=== PATIENT | male | born 1980 | race African-American/Black ===

== ENCOUNTER → 2016-11-06 | Outpatient (CLI) | payer OTHER ==
[2016-09-04 08:12] VITALS: BP 149/80
--- NOTE | 2016-11-06 13:52 | CARD ---
APPROVED REPORT PROCEDURE: Successful implantation of [employer]ik Biomonitor loop recorder INDICATIONS: Recurrent Syncope of uncertain etiology PROCEDURE DETAILS: An informed consent was obtained from patient. Patient was brought to the procedure suite and her le ft chest and shoulder were prepped and draped in the usual fashion. 20 mL of 2% lidocaine was infilt rated into the skin and subcutaneous tissues for local anesthesia. An incision was made in the left third intercostal space 1 inch from midsternal line and using the introducer provided with the kit a track was created in subcutaneous tissue. Subsequently, with the help of the deployer provided with the kit, a Bi[employer]ik Biomonitor loop recorder serial number [id number] was placed in the subcutaneous t issue. The incision was closed in one layer. Hemostasis was secured. Patient tolerated the procedu re well. There were no immediate complications. At the end of procedure, the device showed sensing amplitude of 1.71 mV. CONCLUSION: Successful implantation of Bi[employer]ik Biomonitor loop recorder for syncope of uncertain etiology to ru le out any significant arrhythmias.
== END | disposition home or self-care (01) ==
LOC: LINQ 13:38
PROVIDERS: ATTEND Internal Medicine Cardiovascular Disease
DX: R55 Syncope and collapse (principal)
CPT/HCPCS: 33282; C1764

== ENCOUNTER 2019-02-24 16:09 | Inpatient (IN) | payer OTHER, SELFPAY ==
[~2019-02-24] VITALS: Ht 188 cm; Wt 177.9 kg
[2019-02-24] VITALS (7 sets, daily range): BP systolic 105–147; BP diastolic 71–81
[~2019-02-24 16:09] MED LIST: ASPI325T11 PO; ATOR40TA59 PO; CLOP75TA PO; GLYB5TAB3 PO; INSU100I13 SQ; LISI-338 PO; METO25TA4 PO; Pantoprazole PO
[2019-02-24] MEDS ORDERED: ASPIRIN 325 MG TABLET PO ONE (16:30)
[2019-02-24] MEDS ORDERED: MORPHINE SULFATE 4 MG/ML VIAL. IV/SQ PRN (16:30)
[2019-02-24] MEDS ORDERED: NITROGLYCERIN SUBLINGUAL 0.4 MG BOTTLE OF 25. SL PRN ×2 (16:30→19:30)
--- NOTE | 2019-02-24 16:32 | PHYS DOC ---
Past Medical History Past Medical History: Diabetes-Type II, High Cholesterol, Hypertension, HI Adult General Chief Complaint Chief Complaint: CHEST PAIN HPI HPI Patient is a 39 year old white male with a history of diabetes type 2, hypertension, high cholesterol, who presents to the ED today complaining over 10 out of 10 crushing left-sided chest pain that has been going on for 3 days. Patient states the pain is worse on deep breaths as well as palpation of the left chest area. Patient states there is nothing specifically relieving his pain. He states he was seen in the ED in October 2018 and had an HI. He states they were unable to put stents in. PCP Dr. Jose Alejandro Holcomb's Review of Systems Review of Systems Constitutional: Denies fever or chills [] Eyes: Denies change in visual acuity, redness, or eye pain [] HENT: Denies nasal congestion or sore throat [] Respiratory: Denies cough or shortness of breath [] Cardiovascular: Reports left-sided chest pain GI: Denies abdominal pain, nausea, vomiting, bloody stools or diarrhea [] : Denies dysuria or hematuria [] Musculoskeletal: Denies back pain or joint pain [] Integument: Denies rash or skin lesions [] Neurologic: Denies headache, focal weakness or sensory changes [] All other systems were reviewed and found to be within normal limits, except as documented in this note. Current Medications Current Medications Current Medications Medications (Trade) Dose Ordered Sig/[facility] Start Time Stop Time Status Last Admin Dose Admin Aspirin (Stanislaw Aspirin) 325 mg 1X ONCE 02/24/19 16:30 02/24/19 16:31 DC 02/24/19 16:48 325 MG Enoxaparin Sodium (Lovenox 100mg Syringe) 100 mg 1X ONCE 02/24/19 19:30 02/24/19 19:31 Enoxaparin Sodium (Lovenox 80mg Syringe) 80 mg 1X ONCE 02/24/19 19:30 02/24/19 19:31 Enoxaparin Sodium (Lovenox Per Pharmacy Treatment Dosing) 1 each STAT STAT 02/24/19 18:50 02/24/19 18:54 DC Info (CONTRAST GIVEN -- Rx MONITORING) 1 each PRN DAILY PRN 02/24/19 18:30 02/26/19 18:29 Insulin Human Regular (HumuLIN R VIAL) 10 unit 1X ONCE 02/24/19 18:00 02/24/19 18:03 DC 02/24/19 18:53 10 UNIT Iohexol (Omnipaque 350 Mg/ml) 90 ml 1X ONCE 02/24/19 18:30 02/24/19 18:31 DC 02/24/19 18:30 90 ML Morphine Sulfate (Morphine Sulfate) 4 mg PRN Q15MIN PRN 02/24/19 16:30 02/25/19 16:29 Nitroglycerin (Nitrostat) 0.4 mg PRN Q5MIN PRN 02/24/19 16:30 02/25/19 16:29 02/24/19 16:49 0.4 MG Ondansetron HCl (Zofran) 8 mg 1X ONCE 02/24/19 18:45 02/24/19 18:46 DC 02/24/19 18:47 8 MG Sodium Bicarbonate (Sodium Bicarb Adult 8.4% Syr) 50 meq 1X ONCE 02/24/19 18:00 02/24/19 18:03 DC 02/24/19 18:50 50 MEQ Sodium Chloride 1,000 ml @ 1,000 mls/hr 1X ONCE 02/24/19 18:00 02/24/19 18:59 DC 02/24/19 18:53 1,000 MLS/HR Allergies Allergies Allergies Coded Allergies Type Severity Reaction Last Updated Verified No Known Drug Allergies 09/04/16 No Physical Exam Physical Exam Constitutional: Obese patient. Well developed, well nourished, no acute distress, non-toxic appearance. [] HENT: Normocephalic, atraumatic, bilateral external ears normal, oropharynx moist, no oral exudates, nose normal. [] Eyes: PERRLA, EOMI, conjunctiva normal, no discharge. [] Neck: Normal range of motion, no tenderness, supple, no stridor. [] Cardiovascular: Tachycardic, no murmur [] Lungs & Thorax: Bilateral breath sounds clear to auscultation [] Abdomen: Bowel sounds normal, soft, no tenderness, no masses, no pulsatile masses. [] Skin: Warm, dry, no erythema, no rash. [] Back: No tenderness, no CVA tenderness. [] Extremities: No tenderness, no cyanosis, no clubbing, ROM intact, no edema. [] Neurologic: Alert and oriented X 3, normal motor function, normal sensory function, no focal deficits noted. [] Psychologic: Affect normal, judgement normal, mood normal. [] Current Patient Data Vital Signs Vital Signs Date Time Temp Pulse Resp B/P (MAP) Pulse Ox O2 Delivery O2 Flow Rate FiO2 02/24/19 18:44 120 28 131/104 (113) 93 Nasal Cannula 2.0 02/24/19 16:28 98.3 98.3 Lab Values Laboratory Tests Test 02/24/19 16:20 02/24/19 17:20 White Blood Count 9.4 x10^3/uL (4.0-11.0) Red Blood Count 5.29 x10^6/uL (4.30-5.70) Hemoglobin 15.8 g/dL (13.0-17.5) Hematocrit 47.2 % (39.0-53.0) Mean Corpuscular Volume 89 fL (79-100) Mean Corpuscular Hemoglobin 30 pg (25-35) Mean Corpuscular Hemoglobin Concent 33 g/dL (31-37) Red Cell Distribution Width 13.7 % (11.5-14.5) Platelet Count 173 x10^3/uL (140-400) Neutrophils (%) (Auto) 71 % (31-73) Lymphocytes (%) (Auto) 21 % (24-48) L Monocytes (%) (Auto) 7 % (0-9) Eosinophils (%) (Auto) 1 % (0-3) Basophils (%) (Auto) 1 % (0-3) Neutrophils # (Auto) 6.7 x10^3uL (1.8-7.7) Lymphocytes # (Auto) 1.9 x10^3/uL (1.0-4.8) Monocytes # (Auto) 0.7 x10^3/uL (0.0-1.1) Eosinophils # (Auto) 0.1 x10^3/uL (0.0-0.7) Basophils # (Auto) 0.0 x10^3/uL (0.0-0.2) Prothrombin Time 14.5 SEC (11.7-14.0) H Prothrombin Time INR 1.2 (0.8-1.1) H D-Dimer (Emily) 6.09 ug/mlFEU (0.00-0.50) H Sodium Level 130 mmol/L (136-145) L Potassium Level 4.3 mmol/L (3.5-5.1) Chloride Level 93 mmol/L (98-107) L Carbon Dioxide Level 20 mmol/L (21-32) L Anion Gap 17 (6-14) H Blood Urea Nitrogen 20 mg/dL (8-26) Creatinine 1.8 mg/dL (0.7-1.3) H Estimated GFR (Cockcroft-Gault) 51.4 BUN/Creatinine Ratio 11 (6-20) Glucose Level 517 mg/dL (70-99) *H Calcium Level 9.4 mg/dL (8.5-10.1) Magnesium Level 1.8 mg/dL (1.8-2.4) Total Bilirubin 0.7 mg/dL (0.2-1.0) Aspartate Amino Transferase (AST) 15 U/L (15-37) Alanine Aminotransferase (ALT) 26 U/L (16-63) Alkaline Phosphatase 106 U/L (46-116) Creatine Kinase 152 U/L (39-308) Creatine Kinase MB (Mass) 1.1 ng/mL (0.0-3.6) Creatine Kinase MB Relative Index 0.7 % (0-4) Troponin I Quantitative 0.196 ng/mL (0.000-0.055) CF-Vdh-R-Type Natriuretic Peptide 592 pg/mL (0-124) H Total Protein 8.4 g/dL (6.4-8.2) H Albumin 3.3 g/dL (3.4-5.0) L Albumin/Globulin Ratio 0.6 (1.0-1.7) L Lipase 166 U/L (73-393) Thyroid Stimulating Hormone (TSH) 1.571 uIU/mL (0.358-3.74) Laboratory Tests 02/24/19 16:20 Laboratory Tests 02/24/19 17:20 EKG EKG [address] Malcolm sinus tachycardia HR 124 no STEMI[] Radiology/Procedures Radiology/Procedures []PROCEDURE: PORTABLE CHEST 1V PORTABLE CHEST 1V History: ER PATIENT. ATRAUMATIC LEFT SIDE CHEST PAIN, Hx HTN, DIABETES, LOOP RECORDER. PRIOR XRAY.. Comparison with the study 10/12/2018. Cardiac device is seen overlying the left chest. No evidence of a pneumothorax. No evidence of pleural effusion. No airspace consolidation. The cardiomediastinal silhouette appears stable since the prior study. The regional skeleton is grossly intact. IMPRESSION: No evidence of consolidating infiltrate. Electronically signed by: Dani Zamudio MD (02/24/2019 5:25 PM) [id number] DICTATED and SIGNED BY: DANI ZAMUDIO MD DATE: 02/24/19 4956 Course & Med Decision Making Course & Med Decision Making Pertinent Labs and Imaging studies reviewed. (See chart for details) This is a 39-year-old male patient presenting to the ED today with left-sided chest pain that began 3 days ago had HI in October 2018. Vitals on arrival to the ED temperature 98.3 heart rate 125 respiration, 26 on room air pressure 149/83 O2 sats 90% on room air. Started on IV fluids. Patient was started on the chest pain protocol including aspirin on arrival to the ED. CBC with a normal WBC, CMP with sodium of 130, glucose 517, anion gap 17, creatinine 1.8, BUN 20, troponin 0.[address] Malcolm he recommended more IV fluids, Insulin 10 units and Bicarb. 18:[address] Mcdonough who will f/u with patient D-dimer 6.09 CTA chest obtained. Radiologist called and informed the patient has suddle PEs. Spoke with she recommended Lovenox Spoke with Dr. Sutton who accepted patient for admission- he recommended if patient is not hypoxic we should not give lovenox. Patient has 02 saturations on RA around 88%. He will be given Heparin per PE protocol. Admitted in ICU. Dragon Disclaimer Dragon Disclaimer This electronic medical record was generated, in whole or in part, using a voice recognition dictation system. Departure Departure Impression: Primary Impression: NSTEMI (non-ST elevated myocardial infarction) Additional Impressions: DKA (diabetic ketoacidoses) Chest pain Acute renal failure Pulmonary embolism Disposition: ADMITTED INPATIENT Condition: STABLE Referrals: JOSE ALEJANDRO LENTZ MD (PCP) Problem Qualifiers Additional Impressions: DKA (diabetic ketoacidoses) Diabetes mellitus type: type 2 Diabetes mellitus complication detail: without coma Qualified Codes: E11.10 - Type 2 diabetes mellitus with ketoacidosis without coma Chest pain Chest pain type: unspecified Qualified Codes: R07.9 - Chest pain, unspecified Acute renal failure Acute renal failure type: unspecified Qualified Codes: N17.9 - Acute kidney failure, unspecified Pulmonary embolism Pulmonary embolism type: saddle Chronicity: acute Acute cor pulmonale presence: without acute cor pulmonale Qualified Codes: I26.92 - Saddle embolus of pulmonary artery without acute cor pulmonale SARBJIT KEMP APRN Feb 24, 2019 16:32
[2019-02-24] MEDS ORDERED: IV NORMAL SALINE 1000ML BAG 1,000 ML IV ONE ×3 (16:45→19:30)
[2019-02-24 16:48] LABS: BASO % 1 % (0-3); EOS # 0.1 x10^3/uL (0.0-0.7); EOS % 1 % (0-3); HEMATOCRIT 47.2 % (39.0-53.0); HEMOGLOBIN 15.8 g/dL (13.0-17.5); LYMPH # 1.9 x10^3/uL (1.0-4.8); LYMPH % 21 % (24-48); MEAN CORPUSCULAR HEMOGLOBIN 30 pg (25-35); MEAN CORPUSCULAR HGB CONC 33 g/dL (31-37); MEAN CORPUSCULAR VOLUME 89 fL (79-100); MONO # 0.7 x10^3/uL (0.0-1.1); MONO % 7 % (0-9); NEUT # 6.7 x10^3uL (1.8-7.7); NEUT % 71 % (31-73); PLATELET COUNT 173 x10^3/uL (140-400); RED BLOOD COUNT 5.29 x10^6/uL (4.30-5.70); RED CELL DISTRIBUTION WIDTH 13.7 % (11.5-14.5); WHITE BLOOD COUNT 9.4 x10^3/uL (4.0-11.0)
--- NOTE | 2019-02-24 17:20 | EKG ---
[facility] [address] [place] [address] Test Date: 2019-02-24 Test Time: 16:19:54 Pat Name: EL THOMPSON Department: Room: Gender: M Organizational Effectiveness Consultant: : 1980 Requested By: SARBJIT KEMP Order Number: [id number] Reading MD: Measurements Intervals [place] Rate: 124 P: -90 NH: 80 QRS: 10 QRSD: 84 T: -42 QT: 326 QTc: 472 Interpretive Statements SINUS TACHYCARDIA R-S TRANSITION ZONE IN V LEADS DISPLACED TO THE RIGHT INCOMPLETE RIGHT BUNDLE BRANCH BLOCK QRS(T) CONTOUR ABNORMALITY CONSISTENT WITH INFERIOR INFARCT AGE UNDETERMINED ABNORMAL ECG No previous ECG available for comparison
--- NOTE | 2019-02-24 17:29 | RAD ---
PORTABLE CHEST 1V History: ER PATIENT. ATRAUMATIC LEFT SIDE CHEST PAIN, Hx HTN, DIABETES, LOOP RECORDER. PRIOR XRAY.. Comparison with the study 10/12/2018. Cardiac device is seen overlying the left chest. No evidence of a pneumothorax. No evidence of pleural effusion. No airspace consolidation. The cardiomediastinal silhouette appears stable since the prior study. The regional skeleton is grossly intact. IMPRESSION: No evidence of consolidating infiltrate. Electronically signed by: Dani Zamudio MD (02/24/2019 5:25 PM) [id number]
[2019-02-24 17:39] LABS: PROTHROMBIN TIME PATIENT 14.5 SEC (11.7-14.0)
[2019-02-24 17:52] LABS: ALBUMIN 3.3 g/dL (3.4-5.0); ALBUMIN/GLOBULIN RATIO 0.6 (1.0-1.7); CALCIUM 9.4 mg/dL (8.5-10.1); CREATININE 1.8 mg/dL (0.7-1.3); GFR 51.4; MAGNESIUM 1.8 mg/dL (1.8-2.4); POTASSIUM 4.3 mmol/L (3.5-5.1); TOTAL BILIRUBIN 0.7 mg/dL (0.2-1.0); TOTAL PROTEIN 8.4 g/dL (6.4-8.2)
[2019-02-24 17:57] LABS: D-DIMER 6.09 ug/mlFEU (0.00-0.50)
[2019-02-24] MEDS ORDERED: INSULIN REGULAR 100 UNIT/ML 3ML VIAL. IV ONE (18:00)
[2019-02-24] MEDS ORDERED: SODIUM BICARB ADULT 8.4% 50 MEQ/50 ML DISP.SYRIN. IV ONE (18:00)
[2019-02-24] MEDS ORDERED: IOHEXOL 350 MG/ML 100 ML VIAL. IV ONE (18:30)
[2019-02-24] MEDS ORDERED: CONTRAST GIVEN. MC PRN (18:30)
[2019-02-24] MEDS ORDERED: ONDANSETRON PF 4 MG/2 ML VIAL. IM ONE (18:45)
--- NOTE | 2019-02-24 18:53 | RAD ---
CTA chest with contrast dated 02/24/2019. No comparison available. CLINICAL INDICATION: Chest pain. Elevated d-dimer. TECHNIQUE: Contiguous axial imaging the chest performed following the intravenous demonstration of 90 cc Isovue-370. Study was performed as dedicated PE protocol with thin cut coronal MIPS 3-D reconstruction. One or more of the following individualized dose reduction techniques were utilized for this examination: 1. Automated exposure control 2. Adjustment of the mA and/or kV according to patient size 3. Use of iterative reconstruction technique FINDINGS: Contrast bolus is adequate. There is extensive filling defect throughout the lobar pulmonary artery branches with occlusion and of the basilar segmental branches on the left and occlusion of the left upper lobe and lingular segmental branches. There few branches of the right lower lobe that are occluded with high-grade narrowing of the right middle lobe and right upper lobe branches. There is a saddle embolus crossing the midline. Near complete occlusion of the distal right main pulmonary artery. Heart size within normal limits. No pericardial effusion. There is dilation of the main right pulmonary artery measuring 3.6 cm. Is also some enlargement of the right ventricle with some displacement of the septum toward the left. No mediastinal, hilar or axillary lymphadenopathy. Thyroid gland unremarkable. Central airways are patent. Lungs are clear without focal consolidation. Vascular interstitium within normal limits. No pleural effusion or pneumothorax. Limited images of the upper abdomen unremarkable. No acute bony abnormality. Multilevel spondylosis. IMPRESSION: 1. Extensive bilateral pulmonary emboli with saddle embolus crossing the midline. Please see above report for details. 2. Mild right ventricular enlargement with displacement of the septum, suggestive of a right heart strain pattern. 3. Clear lungs. Results were discussed with ER physician at approximately 6:49 PM on the day of exam. Electronically signed by: Dani Watson MD (02/24/2019 6:50 PM) [id number]
[2019-02-24 19:12] LABS: BILIRUBIN,URINE NEGATIVE (NEG); CLARITY,URINE CLEAR; COLOR,URINE YELLOW; NITRITE,URINE POSITIVE (NEG); PROTEIN,URINE 30 mg/dL (NEG-TRACE); UROBILINOGEN,URINE 0.2 mg/dL (0.2 mg/dL)
[2019-02-24 19:19] LABS: BARBITURATES NEG (NEG); BENZODIAZEPINES NEG (NEG); CANNABINOIDS NEG (NEG); COCAINE NEG (NEG); METHADONE NEG (NEG); OPIATES NEG (NEG); PHENCYCLIDINE NEG (NEG)
[2019-02-24] MEDS: HEPARIN for IV BOLUS 10,000 UNIT/10 ML VIAL. IV PRN (19:19)
[2019-02-24] MEDS: HEPARIN 25,000UTS/500ML PREMIX 500 ML IV PRN (19:20)
[2019-02-24 19:24] LABS: AMPHETAMINE/METHAMPHETAMINE NEG (NEG); HYALINE CASTS, URINE FEW /HPF; SQUAMOUS EPITHELIAL CELL,UR FEW /LPF
[2019-02-24 19:25] LABS: BACTERIA,URINE MODERATE /HPF (0-FEW); RBC,URINE 0 /HPF (0-2); WBC,URINE 20-40 /HPF (0-4)
[2019-02-24] MEDS ORDERED: MORPHINE SULFATE 4 MG/ML VIAL. IV PRN (19:30)
[2019-02-24] MEDS ORDERED: ONDANSETRON PF 4 MG/2 ML VIAL. IV PRN (19:30)
[2019-02-24] MEDS ORDERED: ACETAMINOPHEN 325 MG TABLET. PO PRN (19:30)
[2019-02-24] MEDS ORDERED: DEXTROSE 50% 25 GM / 50ML DISP.SYRIN. IV PRN (19:30)
[2019-02-24] MEDS ORDERED: INSULIN REGULAR VIAL 150 UNIT in 0.9 % SODIUM CHLORIDE 150ML 150 ML IV PRN (21:30)
[2019-02-24] MEDS ORDERED: POTASSIUM CHLORIDE 10MEQ 100 ML IV PRN ×2 (21:30)
--- NOTE | 2019-02-24 21:32 | PDOC1 ---
History and Physical Date of Admission Date of Admission DATE: 02/24/19 TIME: 21:27 Identification/Chief Complaint Chief Complaint chest pain, dyapnea Source Source: Chart review, Patient History of Present Illness History of Present Illness Mr. Shukla is a 39 year old male admit to the ICU with acute hypoxia. 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 Past Medical History Past Medical History with a history of diabetes type 2, hypertension, high cholesterol, DVT Cardiovascular: CAD, HTN Endocrine: Diabetes Past Surgical History Past Surgical History: No pertinent history Family History Family History: Hypertension, Other (clotting) Social History Smoke: No ALCOHOL: none Drugs: None Current Problem List Problem List Problems Medical Problems: (1) Acute renal failure Status: Acute (2) Chest pain Status: Acute (3) DKA (diabetic ketoacidoses) Status: Acute (4) NSTEMI (non-ST elevated myocardial infarction) Status: Acute (5) Pulmonary embolism Status: Acute Current Medications Current Medications Current Medications Aspirin (Bricsnet Aspirin) 325 mg 1X ONCE PO Last administered on 02/24/19at 16:48; Start 02/24/19 at 16:30; Stop 02/24/19 at 16:31; Status DC Nitroglycerin (Nitrostat) 0.4 mg PRN Q5MIN PRN SL CP RATING > 1/10 Last administered on 02/24/19at 16:49; Start 02/24/19 at 16:30; Stop 02/25/19 at 16:29 Morphine Sulfate (Morphine Sulfate) 4 mg PRN Q15MIN PRN IV/SQ PAIN GREATER THAN 3/10; Start 02/24/19 at 16:30; Stop 02/25/19 at 16:29 Sodium Chloride 1,000 ml @ 1,000 mls/hr 1X ONCE IV Last administered on 02/24/19at 17:35; Start 02/24/19 at 16:45; Stop 02/24/19 at 17:44; Status DC Insulin Human Regular (HumuLIN R VIAL) 10 unit 1X ONCE IV Last administered on 02/24/19at 18:53; Start 02/24/19 at 18:00; Stop 02/24/19 at 18:03; Status DC Sodium Chloride 1,000 ml @ 1,000 mls/hr 1X ONCE IV Last administered on 02/24/19at 18:53; Start 02/24/19 at 18:00; Stop 02/24/19 at 18:59; Status DC Sodium Bicarbonate (Sodium Bicarb Adult 8.4% Syr) 50 meq 1X ONCE IV Last administered on 02/24/19at 18:50; Start 02/24/19 at 18:00; Stop 02/24/19 at 18:03; Status DC Iohexol (Omnipaque 350 Mg/ml) 90 ml 1X ONCE IV Last administered on 02/24/19at 18:30; Start 02/24/19 at 18:30; Stop 02/24/19 at 18:31; Status DC Info (CONTRAST GIVEN -- Rx MONITORING) 1 each PRN DAILY PRN MC SEE COMMENTS; Start 02/24/19 at 18:30; Stop 02/26/19 at 18:29 Ondansetron HCl (Zofran) 8 mg 1X ONCE IM Last administered on 02/24/19at 18:47; Start 02/24/19 at 18:45; Stop 02/24/19 at 18:46; Status DC Enoxaparin Sodium (Lovenox Per Pharmacy Treatment Dosing) 1 each STAT STAT MC ; Start 02/24/19 at 18:50; Stop 02/24/19 at 18:54; Status DC Enoxaparin Sodium (Lovenox 100mg Syringe) 100 mg 1X ONCE SQ ; Start 02/24/19 at 19:30; Stop 02/24/19 at 19:30; Status DC Enoxaparin Sodium (Lovenox 80mg Syringe) 80 mg 1X ONCE SQ ; Start 02/24/19 at 19:30; Stop 02/24/19 at 19:30; Status DC Heparin Sodium/ Dextrose 500 ml @ 0 mls/hr CONT PRN IV SEE I/O RECORD Last administered on 02/24/19at 19:20; Start 02/24/19 at 19:15 Heparin Sodium (Porcine) (Heparin Sodium) 5,450 unit PRN Q6HRS PRN IV FOR UFH LEVEL LESS THAN 0.2 Last administered on 02/24/19at 19:19; Start 02/24/19 at 19:15 Info (Anti-Coagulation Monitoring By Pharmacy) 1 each PRN DAILY PRN MC SEE COMMENTS; Start 02/24/19 at 19:15 Ondansetron HCl (Zofran) 4 mg PRN Q8HRS PRN IV NAUSEA/VOMITING; Start 02/24/19 at 19:30; Stop 02/25/19 at 19:29 Morphine Sulfate (Morphine Sulfate) 4 mg PRN Q2HR PRN IV PAIN; Start 02/24/19 at 19:30; Stop 02/25/19 at 19:29 Acetaminophen (Tylenol) 650 mg PRN Q4HRS PRN PO FEVER; Start 02/24/19 at 19:30; Stop 02/25/19 at 19:29 Nitroglycerin (Nitrostat) 0.4 mg PRN Q5MIN PRN SL CHEST PAIN; Start 02/24/19 at 19:30; Stop 02/25/19 at 19:29 Insulin Human Lispro (HumaLOG) 0-7 UNITS TIDWMEALS SQ ; Start 02/25/19 at 08:00 Dextrose (Dextrose 50%-Water Syringe) 12.5 gm PRN Q15MIN PRN IV SEE COMMENTS; Start 02/24/19 at 19:30 Sodium Chloride 1,000 ml @ 125 mls/hr 1X ONCE IV ; Start 02/24/19 at 19:30; Stop 02/25/19 at 03:29 Zolpidem Tartrate (Ambien) 5 mg PRN QHS PRN PO INSOMNIA; Start 02/24/19 at 21:30 Aspirin (Ecotrin) 325 mg DAILYWBKFT PO ; Start 02/25/19 at 08:00 Atorvastatin Calcium (Lipitor) 40 mg QHS PO ; Start 02/24/19 at 22:00 Clopidogrel Bisulfate (Plavix) 75 mg DAILYWBKFT PO ; Start 02/25/19 at 08:00 Metoprolol Tartrate (Lopressor) 25 mg DAILY PO ; Start 02/25/19 at 09:00; Status UNV Non-Formulary Medication (Lisinopril ) 2.5 mg DAILY PO ; Start 02/25/19 at 09:00; Status UNV Non-Formulary Medication ([Pantoprazole] ) 40 mg DAILYAC PO ; Start 02/25/19 at 07:30; Status UNV Active Scripts Active Glyburide 5 Mg Tablet 5 Mg PO BIDWMEALS MDD 1 Lantus Solostar (Insulin Glargine,Hum.rec.anlog) 100 Unit/1 Ml Insuln.pen 25 Units SQ QHS MDD 1 30 Days [Pantoprazole] 40 MG Tablet.dr 40 Mg PO DAILYAC MDD 1 Aspirin Ec (Aspirin) 325 Mg Tablet.dr 325 Mg PO DAILYWBKFT MDD 1 Lisinopril 5 Mg Tablet 2.5 Mg PO DAILY MDD 1 Metoprolol Tartrate 25 Mg Tablet 25 Mg PO DAILY MDD 1 Atorvastatin Calcium 40 Mg Tablet 40 Mg PO QHS MDD 1 Clopidogrel (Clopidogrel Bisulfate) 75 Mg Tablet 75 Mg PO DAILYWBKFT MDD 1 Reported No Known Medications Prior To Admisstion (Info) Each 1 Each DAILY Allergies Allergies: Coded Allergies: No Known Drug Allergies (Unverified , 09/04/16) ROS General: YES: Chills, Fatigue, Malaise PSYCHOLOGICAL ROS: YES: Irritablity, Sleep disturbances Eyes: No Blurry vision, No Decreased vision, No Double vision, No Dry eyes, No Excessive tearing, No Eye Pain, No Itchy Eyes, No Loss of vision, No Photophobia, No Scotomata, No Uses contacts, No Uses glasses, No Other HEENT: No: Heacaches, Visual Changes, Hearing change, Nasal congestion, Nasal discharge, Oral lesions, Sinus pain, Sore Throat, Epistaxis, Sneezing, Snoring, Tinnitus, Vertigo, Vocal changes, Other Respiratory: YES: Pleuritic Pain, SOB with excertion, Tachypnea; No: Cough, Hemoptysis, Orthopnea, Shortness of breath, Sputum Changes, Stridor, Wheezing, Other Cardiovascular: yes Chest Pain; No Palpitations, No Orthopnea, No Paroxysmal Noc. Dyspnea, No Edema, No Lt Headedness, No Other Gastrointestinal: Yes Nausea, Yes Abdominal Pain Genitourinary: No Dysuria, No Frequency, No Incontinence, No Hematuria, No Retention, No Discharge, No Urgency, No Pain, No Flank Pain, No Other, No , No , No , No , No , No , No Musculoskeletal: Yes Joint Stiffness; No Gait Disturbance, No Joint Pain, No Joint Swelling, No Muscle Pain, No Muscular Weakness, No Pain In:, No Swelling In:, No Other Neurological: No Behavorial Changes, No Bowel/Bladder ControlChng, No Confusion, No Dizziness, No Gait Disturbance, No Headaches, No Impaired Coord/balance, No Memory Loss, No Numbness/Tingling, No Seizures, No Speech Problems, No Tremors, No Visual Changes, No Weakness, No Other Skin: Yes Dry Skin; No Eczema, No Hair Changes, No Lumps, No Mole Changes, No Mottling, No Nail Changes, No Pruritus, No Rash, No Skin Lesion Changes, No Other, No Acne Physical Exam General: Alert, Cooperative, No acute distress HEENT: PERRLA, EOMI Lungs: Clear to auscultation, Normal air movement Heart: S1S2, no murmurs Extremities: No clubbing, No edema Skin: No rashes, No significant lesion Neuro: Normal gait, Normal tone, Cranial nerves 3-12 NL Vitals Vitals Vital Signs Date Time Temp Pulse Resp B/P (MAP) Pulse Ox O2 Delivery O2 Flow Rate FiO2 02/24/19 20:14 102 24 120/77 (91) 97 Nasal Cannula 3.0 02/24/19 16:28 98.3 98.3 Labs Labs Laboratory Tests Test 02/24/19 16:20 02/24/19 17:20 02/24/19 19:00 02/24/19 20:10 White Blood Count 9.4 x10^3/uL (4.0-11.0) Red Blood Count 5.29 x10^6/uL (4.30-5.70) Hemoglobin 15.8 g/dL (13.0-17.5) Hematocrit 47.2 % (39.0-53.0) Mean Corpuscular Volume 89 fL (79-100) Mean Corpuscular Hemoglobin 30 pg (25-35) Mean Corpuscular Hemoglobin Concent 33 g/dL (31-37) Red Cell Distribution Width 13.7 % (11.5-14.5) Platelet Count 173 x10^3/uL (140-400) Neutrophils (%) (Auto) 71 % (31-73) Lymphocytes (%) (Auto) 21 % (24-48) Monocytes (%) (Auto) 7 % (0-9) Eosinophils (%) (Auto) 1 % (0-3) Basophils (%) (Auto) 1 % (0-3) Neutrophils # (Auto) 6.7 x10^3uL (1.8-7.7) Lymphocytes # (Auto) 1.9 x10^3/uL (1.0-4.8) Monocytes # (Auto) 0.7 x10^3/uL (0.0-1.1) Eosinophils # (Auto) 0.1 x10^3/uL (0.0-0.7) Basophils # (Auto) 0.0 x10^3/uL (0.0-0.2) Prothrombin Time 14.5 SEC (11.7-14.0) Prothromb Time International Ratio 1.2 (0.8-1.1) D-Dimer (Emily) 6.09 ug/mlFEU (0.00-0.50) Sodium Level 130 mmol/L (136-145) Potassium Level 4.3 mmol/L (3.5-5.1) Chloride Level 93 mmol/L (98-107) Carbon Dioxide Level 20 mmol/L (21-32) Anion Gap 17 (6-14) Blood Urea Nitrogen 20 mg/dL (8-26) Creatinine 1.8 mg/dL (0.7-1.3) Estimated GFR (Cockcroft-Gault) 51.4 BUN/Creatinine Ratio 11 (6-20) Glucose Level 517 mg/dL (70-99) Calcium Level 9.4 mg/dL (8.5-10.1) Magnesium Level 1.8 mg/dL (1.8-2.4) Total Bilirubin 0.7 mg/dL (0.2-1.0) Aspartate Amino Transf (AST/SGOT) 15 U/L (15-37) Alanine Aminotransferase (ALT/SGPT) 26 U/L (16-63) Alkaline Phosphatase 106 U/L (46-116) Creatine Kinase 152 U/L (39-308) Creatine Kinase MB (Mass) 1.1 ng/mL (0.0-3.6) Creatine Kinase MB Relative Index 0.7 % (0-4) Troponin I Quantitative 0.196 ng/mL (0.000-0.055) VT-Xda-Q-Type Natriuretic Peptide 592 pg/mL (0-124) Total Protein 8.4 g/dL (6.4-8.2) Albumin 3.3 g/dL (3.4-5.0) Albumin/Globulin Ratio 0.6 (1.0-1.7) Lipase 166 U/L (73-393) Thyroid Stimulating Hormone (TSH) 1.571 uIU/mL (0.358-3.74) Urine Collection Type Unknown Urine Color Yellow Urine Clarity Clear Urine pH 5.0 Urine Specific [place] >=1.030 Urine Protein 30 mg/dL (NEG-TRACE) Urine Glucose (UA) >=1000 mg/dL (NEG) Urine Ketones (Stick) 40 mg/dL (NEG) Urine Blood Negative (NEG) Urine Nitrite Positive (NEG) Urine Bilirubin Negative (NEG) Urine Urobilinogen Dipstick 0.2 mg/dL (0.2 mg/dL) Urine Leukocyte Esterase Negative (NEG) Urine RBC 0 /HPF (0-2) Urine WBC 20-40 /HPF (0-4) Urine Squamous Epithelial Cells Few /LPF Urine Bacteria Moderate /HPF (0-FEW) Urine Hyaline Casts Few /HPF Urine Mucus Mod /LPF Urine Opiates Screen Neg (NEG) Urine Methadone Screen Neg (NEG) Urine Barbiturates Neg (NEG) Urine Phencyclidine Screen Neg (NEG) Urine Amphetamine/Methamphetamine Neg (NEG) Urine Benzodiazepines Screen Neg (NEG) Urine Cocaine Screen Neg (NEG) Urine Cannabinoids Screen Neg (NEG) Urine Ethyl Alcohol Neg (NEG) Glucose (Fingerstick) 313 mg/dL (70-99) Laboratory Tests Test 02/24/19 16:20 02/24/19 17:20 02/24/19 19:00 02/24/19 20:10 White Blood Count 9.4 x10^3/uL (4.0-11.0) Red Blood Count 5.29 x10^6/uL (4.30-5.70) Hemoglobin 15.8 g/dL (13.0-17.5) Hematocrit 47.2 % (39.0-53.0) Mean Corpuscular Volume 89 fL (79-100) Mean Corpuscular Hemoglobin 30 pg (25-35) Mean Corpuscular Hemoglobin Concent 33 g/dL (31-37) Red Cell Distribution Width 13.7 % (11.5-14.5) Platelet Count 173 x10^3/uL (140-400) Neutrophils (%) (Auto) 71 % (31-73) Lymphocytes (%) (Auto) 21 % (24-48) Monocytes (%) (Auto) 7 % (0-9) Eosinophils (%) (Auto) 1 % (0-3) Basophils (%) (Auto) 1 % (0-3) Neutrophils # (Auto) 6.7 x10^3uL (1.8-7.7) Lymphocytes # (Auto) 1.9 x10^3/uL (1.0-4.8) Monocytes # (Auto) 0.7 x10^3/uL (0.0-1.1) Eosinophils # (Auto) 0.1 x10^3/uL (0.0-0.7) Basophils # (Auto) 0.0 x10^3/uL (0.0-0.2) Prothrombin Time 14.5 SEC (11.7-14.0) Prothromb Time International Ratio 1.2 (0.8-1.1) D-Dimer (Emily) 6.09 ug/mlFEU (0.00-0.50) Sodium Level 130 mmol/L (136-145) Potassium Level 4.3 mmol/L (3.5-5.1) Chloride Level 93 mmol/L (98-107) Carbon Dioxide Level 20 mmol/L (21-32) Anion Gap 17 (6-14) Blood Urea Nitrogen 20 mg/dL (8-26) Creatinine 1.8 mg/dL (0.7-1.3) Estimated GFR (Cockcroft-Gault) 51.4 BUN/Creatinine Ratio 11 (6-20) Glucose Level 517 mg/dL (70-99) Calcium Level 9.4 mg/dL (8.5-10.1) Magnesium Level 1.8 mg/dL (1.8-2.4) Total Bilirubin 0.7 mg/dL (0.2-1.0) Aspartate Amino Transf (AST/SGOT) 15 U/L (15-37) Alanine Aminotransferase (ALT/SGPT) 26 U/L (16-63) Alkaline Phosphatase 106 U/L (46-116) Creatine Kinase 152 U/L (39-308) Creatine Kinase MB (Mass) 1.1 ng/mL (0.0-3.6) Creatine Kinase MB Relative Index 0.7 % (0-4) Troponin I Quantitative 0.196 ng/mL (0.000-0.055) SO-Vcp-N-Type Natriuretic Peptide 592 pg/mL (0-124) Total Protein 8.4 g/dL (6.4-8.2) Albumin 3.3 g/dL (3.4-5.0) Albumin/Globulin Ratio 0.6 (1.0-1.7) Lipase 166 U/L (73-393) Thyroid Stimulating Hormone (TSH) 1.571 uIU/mL (0.358-3.74) Urine Collection Type Unknown Urine Color Yellow Urine Clarity Clear Urine pH 5.0 Urine Specific [place] >=1.030 Urine Protein 30 mg/dL (NEG-TRACE) Urine Glucose (UA) >=1000 mg/dL (NEG) Urine Ketones (Stick) 40 mg/dL (NEG) Urine Blood Negative (NEG) Urine Nitrite Positive (NEG) Urine Bilirubin Negative (NEG) Urine Urobilinogen Dipstick 0.2 mg/dL (0.2 mg/dL) Urine Leukocyte Esterase Negative (NEG) Urine RBC 0 /HPF (0-2) Urine WBC 20-40 /HPF (0-4) Urine Squamous Epithelial Cells Few /LPF Urine Bacteria Moderate /HPF (0-FEW) Urine Hyaline Casts Few /HPF Urine Mucus Mod /LPF Urine Opiates Screen Neg (NEG) Urine Methadone Screen Neg (NEG) Urine Barbiturates Neg (NEG) Urine Phencyclidine Screen Neg (NEG) Urine Amphetamine/Methamphetamine Neg (NEG) Urine Benzodiazepines Screen Neg (NEG) Urine Cocaine Screen Neg (NEG) Urine Cannabinoids Screen Neg (NEG) Urine Ethyl Alcohol Neg (NEG) Glucose (Fingerstick) 313 mg/dL (70-99) VTE Prophylaxis Ordered VTE Prophylaxis Devices: Yes VTE Pharmacological Prophylaxi: Yes Assessment/Plan Assessment/Plan acute hypoxic respiratory failure Pulmonary embolism, on history of prior DVT UTI, SIRS, - but SIRS likely from #2 morbid obesity, BMI 51 DKA, ketoacidosis on Dm2 admit to ICU, 35 min, 2 visits, he had seen Dr. Medrano previously DENYS CHAVEZ MD Feb 24, 2019 21:32
[2019-02-24] MEDS: ZOLPIDEM 5 MG TABLET. PO PRN (22:53)
[2019-02-24] MEDS: ATORVASTATIN CALCIUM 40 MG TABLET. PO SCH (22:53)
[2019-02-24] MEDS: cefTRIAXone IV Push 2 GM VIAL. IVP SCH (22:53)
[2019-02-24 22:57] LABS: MAGNESIUM 1.8 mg/dL (1.8-2.4); PHOSPHORUS 3.5 mg/dL (2.6-4.7)
[2019-02-24 23:10] LABS: CALCIUM 8.7 mg/dL (8.5-10.1); CREATININE 1.5 mg/dL (0.7-1.3); GFR 63.4; POTASSIUM 4.1 mmol/L (3.5-5.1)
[2019-02-25] VITALS (24 sets, daily range): BP systolic 95–140; BP diastolic 60–88
[2019-02-25 02:21] LABS: CALCIUM 8.7 mg/dL (8.5-10.1); CREATININE 1.4 mg/dL (0.7-1.3); GFR 68.6; POTASSIUM 3.6 mmol/L (3.5-5.1)
[2019-02-25] MEDS ORDERED: DEXTROSE 50% 25 GM / 50ML DISP.SYRIN. IV PRN ×2 (03:30→07:45)
[2019-02-25] MEDS: POTASSIUM CHLORIDE 10MEQ 100 ML IV PRN ×4 (03:37→08:28)
[2019-02-25] MEDS ORDERED: INSULIN GLARGINE 300 UNITS/3 ML INSULN.PEN. SQ SCH ×2 (04:00→21:00)
[2019-02-25] MEDS: HEPARIN for IV BOLUS 10,000 UNIT/10 ML VIAL. IV PRN (04:06)
[2019-02-25] MEDS: ANTI-COAG MONITOR BY PHARMACY. MC PRN (07:25)
[2019-02-25] MEDS ORDERED: INSULIN LISPRO 300 UNITS/3 ML INSULN.PEN. SQ SCH (08:00)
[2019-02-25] MEDS ORDERED: ONDANSETRON PF 4 MG/2 ML VIAL. IV PRN (08:15)
[2019-02-25] MEDS: LISINOPRIL 5 MG TABLET. PO SCH (08:20)
[2019-02-25] MEDS: PANTOPRAZOLE 40 MG TABLET.DR. PO SCH (08:20)
[2019-02-25] MEDS: LACTOBACILLUS RHAMNOSUS GG 1 CAPSULE. PO SCH ×2 (08:20→20:34)
[2019-02-25] MEDS: METOPROLOL TART IMMED RELEASE 25 MG TABLET. PO SCH (08:21)
[2019-02-25] MEDS: ASPIRIN ENTERIC COATED 325 MG TABLET.DR. PO SCH (08:21)
[2019-02-25] MEDS: CLOPIDOGREL BISULFATE 75 MG TABLET PO SCH (08:21)
[2019-02-25] MEDS: INSULIN LISPRO 300 UNITS/3 ML INSULN.PEN. SQ SCH ×3 (08:26→17:23)
[2019-02-25] MEDS: glyBURIDE 5 MG TABLET PO SCH ×2 (08:36→17:21)
[2019-02-25] MEDS ORDERED: INSULIN GLARGINE 300 UNITS/3 ML INSULN.PEN. SQ STA (10:58)
--- NOTE | 2019-02-25 10:58 | PDOC ---
PROGRESS NOTES Chief Complaint Chief Complaint Saddle PE History DVT and PE on warfarin-lifetime acute hypoxic respiratory failure HONK-DM type II Morbid obesity BMI 52 ARF UTI UTI, SIRS, - History of Present Illness History of Present Illness heparin gtt running Echo ordered not yet done - cards also consulted Pulmonary also consulted So far maintaining O2 sats just on nasal cannula, seen in ICU No chest pain, no increase in SOA Gap closed last night His insulin regimen is 25 units daily at bedtime and OHA He follows with Dr. Porfirio Medrano PLAN: INcrease Lantus started by colleague last night to his home regimen 25 units qhs Okay to continue OHA ADA diet - but he was nauseous today Continue heparin drip Antibiotic for UTI D-dimer was 6 with saddle PE on CTA Keep in ICU echocardiogram today Vitals Vitals Vital Signs Date Time Temp Pulse Resp B/P (MAP) Pulse Ox O2 Delivery O2 Flow Rate FiO2 02/25/19 10:03 84 26 114/72 (86) 97 Nasal Cannula 5.0 02/25/19 07:00 97.7 97.7 Physical Exam General: Alert, Cooperative, No acute distress Heart: Other (sinus tachycardia) Lungs: Other Abdomen: Normal bowel sounds, Soft Extremities: No clubbing, No edema Skin: No rashes, No significant lesion Labs LABS Laboratory Tests Test 02/24/19 16:20 02/24/19 17:20 02/24/19 19:00 02/24/19 20:10 White Blood Count 9.4 x10^3/uL (4.0-11.0) Red Blood Count 5.29 x10^6/uL (4.30-5.70) Hemoglobin 15.8 g/dL (13.0-17.5) Hematocrit 47.2 % (39.0-53.0) Mean Corpuscular Volume 89 fL (79-100) Mean Corpuscular Hemoglobin 30 pg (25-35) Mean Corpuscular Hemoglobin Concent 33 g/dL (31-37) Red Cell Distribution Width 13.7 % (11.5-14.5) Platelet Count 173 x10^3/uL (140-400) Neutrophils (%) (Auto) 71 % (31-73) Lymphocytes (%) (Auto) 21 % (24-48) Monocytes (%) (Auto) 7 % (0-9) Eosinophils (%) (Auto) 1 % (0-3) Basophils (%) (Auto) 1 % (0-3) Neutrophils # (Auto) 6.7 x10^3uL (1.8-7.7) Lymphocytes # (Auto) 1.9 x10^3/uL (1.0-4.8) Monocytes # (Auto) 0.7 x10^3/uL (0.0-1.1) Eosinophils # (Auto) 0.1 x10^3/uL (0.0-0.7) Basophils # (Auto) 0.0 x10^3/uL (0.0-0.2) Prothrombin Time 14.5 SEC (11.7-14.0) Prothromb Time International Ratio 1.2 (0.8-1.1) D-Dimer (Emily) 6.09 ug/mlFEU (0.00-0.50) Sodium Level 130 mmol/L (136-145) Potassium Level 4.3 mmol/L (3.5-5.1) Chloride Level 93 mmol/L (98-107) Carbon Dioxide Level 20 mmol/L (21-32) Anion Gap 17 (6-14) Blood Urea Nitrogen 20 mg/dL (8-26) Creatinine 1.8 mg/dL (0.7-1.3) Estimated GFR (Cockcroft-Gault) 51.4 BUN/Creatinine Ratio 11 (6-20) Glucose Level 517 mg/dL (70-99) Calcium Level 9.4 mg/dL (8.5-10.1) Magnesium Level 1.8 mg/dL (1.8-2.4) Total Bilirubin 0.7 mg/dL (0.2-1.0) Aspartate Amino Transf (AST/SGOT) 15 U/L (15-37) Alanine Aminotransferase (ALT/SGPT) 26 U/L (16-63) Alkaline Phosphatase 106 U/L (46-116) Creatine Kinase 152 U/L (39-308) Creatine Kinase MB (Mass) 1.1 ng/mL (0.0-3.6) Creatine Kinase MB Relative Index 0.7 % (0-4) Troponin I Quantitative 0.196 ng/mL (0.000-0.055) IP-Mbh-G-Type Natriuretic Peptide 592 pg/mL (0-124) Total Protein 8.4 g/dL (6.4-8.2) Albumin 3.3 g/dL (3.4-5.0) Albumin/Globulin Ratio 0.6 (1.0-1.7) Lipase 166 U/L (73-393) Thyroid Stimulating Hormone (TSH) 1.571 uIU/mL (0.358-3.74) Urine Collection Type Unknown Urine Color Yellow Urine Clarity Clear Urine pH 5.0 Urine Specific Aspen >=1.030 Urine Protein 30 mg/dL (NEG-TRACE) Urine Glucose (UA) >=1000 mg/dL (NEG) Urine Ketones (Stick) 40 mg/dL (NEG) Urine Blood Negative (NEG) Urine Nitrite Positive (NEG) Urine Bilirubin Negative (NEG) Urine Urobilinogen Dipstick 0.2 mg/dL (0.2 mg/dL) Urine Leukocyte Esterase Negative (NEG) Urine RBC 0 /HPF (0-2) Urine WBC 20-40 /HPF (0-4) Urine Squamous Epithelial Cells Few /LPF Urine Bacteria Moderate /HPF (0-FEW) Urine Hyaline Casts Few /HPF Urine Mucus Mod /LPF Urine Opiates Screen Neg (NEG) Urine Methadone Screen Neg (NEG) Urine Barbiturates Neg (NEG) Urine Phencyclidine Screen Neg (NEG) Urine Amphetamine/Methamphetamine Neg (NEG) Urine Benzodiazepines Screen Neg (NEG) Urine Cocaine Screen Neg (NEG) Urine Cannabinoids Screen Neg (NEG) Urine Ethyl Alcohol Neg (NEG) Glucose (Fingerstick) 313 mg/dL (70-99) Test 02/24/19 21:40 02/24/19 21:45 02/24/19 23:02 02/25/19 00:11 Sodium Level 138 mmol/L (136-145) Potassium Level 4.1 mmol/L (3.5-5.1) Chloride Level 100 mmol/L (98-107) Carbon Dioxide Level 22 mmol/L (21-32) Anion Gap 16 (6-14) Blood Urea Nitrogen 20 mg/dL (8-26) Creatinine 1.5 mg/dL (0.7-1.3) Estimated GFR (Cockcroft-Gault) 63.4 Glucose Level 328 mg/dL (70-99) Calcium Level 8.7 mg/dL (8.5-10.1) Phosphorus Level 3.5 mg/dL (2.6-4.7) Magnesium Level 1.8 mg/dL (1.8-2.4) Troponin I Quantitative 0.374 ng/mL (0.000-0.055) Glucose (Fingerstick) 286 mg/dL (70-99) 301 mg/dL (70-99) 279 mg/dL (70-99) Test 02/25/19 01:14 02/25/19 01:40 02/25/19 02:21 02/25/19 03:39 Glucose (Fingerstick) 230 mg/dL (70-99) 178 mg/dL (70-99) 154 mg/dL (70-99) Heparin Anti-Xa Act, Unfractionated 0.10 IU/mL (0.30-0.70) Sodium Level 139 mmol/L (136-145) Potassium Level 3.6 mmol/L (3.5-5.1) Chloride Level 103 mmol/L (98-107) Carbon Dioxide Level 24 mmol/L (21-32) Anion Gap 12 (6-14) Blood Urea Nitrogen 14 mg/dL (8-26) Creatinine 1.4 mg/dL (0.7-1.3) Estimated GFR (Cockcroft-Gault) 68.6 Glucose Level 234 mg/dL (70-99) Calcium Level 8.7 mg/dL (8.5-10.1) Test 02/25/19 08:14 Glucose (Fingerstick) 229 mg/dL (70-99) Review of Systems Review of Systems A 14 point ROS was completed with the following noted as positive: Other systems reviewed and negative. \CONSTITUTIONAL: No fever or chills EYES: No recent changes SKIN: No rash or itching CARDIOVASCULAR: No chest pain, syncope, palpitations, or edema RESPIRATORY: No SOB or cough GASTROINTESTINAL: No nausea, vomiting or abdominal pain NEUROLOGICAL: No headaches or weakness ENDOCRINE: No cold or heat intolerance GENITOURINARY: No urgency or frequency of urination MUSCULOSKELETAL: No back pain or joint pain LYMPHATICS: No enlarged lymph nodes PSYCHIATRIC: No anxiety or depression Assessment and Plan Assessmemt and Plan Problems Medical Problems: (1) Acute renal failure Status: Acute (2) Chest pain Status: Acute (3) DKA (diabetic ketoacidoses) Status: Acute (4) NSTEMI (non-ST elevated myocardial infarction) Status: Acute (5) Pulmonary embolism Status: Acute Comment Review of Relevant I have reviewed the following items nataliya (where applicable) has been applied. Labs Laboratory Tests Test 02/24/19 16:20 02/24/19 17:20 02/24/19 19:00 02/24/19 20:10 White Blood Count 9.4 x10^3/uL (4.0-11.0) Red Blood Count 5.29 x10^6/uL (4.30-5.70) Hemoglobin 15.8 g/dL (13.0-17.5) Hematocrit 47.2 % (39.0-53.0) Mean Corpuscular Volume 89 fL (79-100) Mean Corpuscular Hemoglobin 30 pg (25-35) Mean Corpuscular Hemoglobin Concent 33 g/dL (31-37) Red Cell Distribution Width 13.7 % (11.5-14.5) Platelet Count 173 x10^3/uL (140-400) Neutrophils (%) (Auto) 71 % (31-73) Lymphocytes (%) (Auto) 21 % (24-48) Monocytes (%) (Auto) 7 % (0-9) Eosinophils (%) (Auto) 1 % (0-3) Basophils (%) (Auto) 1 % (0-3) Neutrophils # (Auto) 6.7 x10^3uL (1.8-7.7) Lymphocytes # (Auto) 1.9 x10^3/uL (1.0-4.8) Monocytes # (Auto) 0.7 x10^3/uL (0.0-1.1) Eosinophils # (Auto) 0.1 x10^3/uL (0.0-0.7) Basophils # (Auto) 0.0 x10^3/uL (0.0-0.2) Prothrombin Time 14.5 SEC (11.7-14.0) Prothromb Time International Ratio 1.2 (0.8-1.1) D-Dimer (Emily) 6.09 ug/mlFEU (0.00-0.50) Sodium Level 130 mmol/L (136-145) Potassium Level 4.3 mmol/L (3.5-5.1) Chloride Level 93 mmol/L (98-107) Carbon Dioxide Level 20 mmol/L (21-32) Anion Gap 17 (6-14) Blood Urea Nitrogen 20 mg/dL (8-26) Creatinine 1.8 mg/dL (0.7-1.3) Estimated GFR (Cockcroft-Gault) 51.4 BUN/Creatinine Ratio 11 (6-20) Glucose Level 517 mg/dL (70-99) Calcium Level 9.4 mg/dL (8.5-10.1) Magnesium Level 1.8 mg/dL (1.8-2.4) Total Bilirubin 0.7 mg/dL (0.2-1.0) Aspartate Amino Transf (AST/SGOT) 15 U/L (15-37) Alanine Aminotransferase (ALT/SGPT) 26 U/L (16-63) Alkaline Phosphatase 106 U/L (46-116) Creatine Kinase 152 U/L (39-308) Creatine Kinase MB (Mass) 1.1 ng/mL (0.0-3.6) Creatine Kinase MB Relative Index 0.7 % (0-4) Troponin I Quantitative 0.196 ng/mL (0.000-0.055) OQ-Kjd-V-Type Natriuretic Peptide 592 pg/mL (0-124) Total Protein 8.4 g/dL (6.4-8.2) Albumin 3.3 g/dL (3.4-5.0) Albumin/Globulin Ratio 0.6 (1.0-1.7) Lipase 166 U/L (73-393) Thyroid Stimulating Hormone (TSH) 1.571 uIU/mL (0.358-3.74) Urine Collection Type Unknown Urine Color Yellow Urine Clarity Clear Urine pH 5.0 Urine Specific Aspen >=1.030 Urine Protein 30 mg/dL (NEG-TRACE) Urine Glucose (UA) >=1000 mg/dL (NEG) Urine Ketones (Stick) 40 mg/dL (NEG) Urine Blood Negative (NEG) Urine Nitrite Positive (NEG) Urine Bilirubin Negative (NEG) Urine Urobilinogen Dipstick 0.2 mg/dL (0.2 mg/dL) Urine Leukocyte Esterase Negative (NEG) Urine RBC 0 /HPF (0-2) Urine WBC 20-40 /HPF (0-4) Urine Squamous Epithelial Cells Few /LPF Urine Bacteria Moderate /HPF (0-FEW) Urine Hyaline Casts Few /HPF Urine Mucus Mod /LPF Urine Opiates Screen Neg (NEG) Urine Methadone Screen Neg (NEG) Urine Barbiturates Neg (NEG) Urine Phencyclidine Screen Neg (NEG) Urine Amphetamine/Methamphetamine Neg (NEG) Urine Benzodiazepines Screen Neg (NEG) Urine Cocaine Screen Neg (NEG) Urine Cannabinoids Screen Neg (NEG) Urine Ethyl Alcohol Neg (NEG) Glucose (Fingerstick) 313 mg/dL (70-99) Test 02/24/19 21:40 02/24/19 21:45 02/24/19 23:02 02/25/19 00:11 Sodium Level 138 mmol/L (136-145) Potassium Level 4.1 mmol/L (3.5-5.1) Chloride Level 100 mmol/L (98-107) Carbon Dioxide Level 22 mmol/L (21-32) Anion Gap 16 (6-14) Blood Urea Nitrogen 20 mg/dL (8-26) Creatinine 1.5 mg/dL (0.7-1.3) Estimated GFR (Cockcroft-Gault) 63.4 Glucose Level 328 mg/dL (70-99) Calcium Level 8.7 mg/dL (8.5-10.1) Phosphorus Level 3.5 mg/dL (2.6-4.7) Magnesium Level 1.8 mg/dL (1.8-2.4) Troponin I Quantitative 0.374 ng/mL (0.000-0.055) Glucose (Fingerstick) 286 mg/dL (70-99) 301 mg/dL (70-99) 279 mg/dL (70-99) Test 02/25/19 01:14 02/25/19 01:40 02/25/19 02:21 02/25/19 03:39 Glucose (Fingerstick) 230 mg/dL (70-99) 178 mg/dL (70-99) 154 mg/dL (70-99) Heparin Anti-Xa Act, Unfractionated 0.10 IU/mL (0.30-0.70) Sodium Level 139 mmol/L (136-145) Potassium Level 3.6 mmol/L (3.5-5.1) Chloride Level 103 mmol/L (98-107) Carbon Dioxide Level 24 mmol/L (21-32) Anion Gap 12 (6-14) Blood Urea Nitrogen 14 mg/dL (8-26) Creatinine 1.4 mg/dL (0.7-1.3) Estimated GFR (Cockcroft-Gault) 68.6 Glucose Level 234 mg/dL (70-99) Calcium Level 8.7 mg/dL (8.5-10.1) Test 02/25/19 08:14 Glucose (Fingerstick) 229 mg/dL (70-99) Laboratory Tests Test 02/24/19 16:20 02/24/19 17:20 02/24/19 19:00 02/24/19 20:10 White Blood Count 9.4 x10^3/uL (4.0-11.0) Red Blood Count 5.29 x10^6/uL (4.30-5.70) Hemoglobin 15.8 g/dL (13.0-17.5) Hematocrit 47.2 % (39.0-53.0) Mean Corpuscular Volume 89 fL (79-100) Mean Corpuscular Hemoglobin 30 pg (25-35) Mean Corpuscular Hemoglobin Concent 33 g/dL (31-37) Red Cell Distribution Width 13.7 % (11.5-14.5) Platelet Count 173 x10^3/uL (140-400) Neutrophils (%) (Auto) 71 % (31-73) Lymphocytes (%) (Auto) 21 % (24-48) Monocytes (%) (Auto) 7 % (0-9) Eosinophils (%) (Auto) 1 % (0-3) Basophils (%) (Auto) 1 % (0-3) Neutrophils # (Auto) 6.7 x10^3uL (1.8-7.7) Lymphocytes # (Auto) 1.9 x10^3/uL (1.0-4.8) Monocytes # (Auto) 0.7 x10^3/uL (0.0-1.1) Eosinophils # (Auto) 0.1 x10^3/uL (0.0-0.7) Basophils # (Auto) 0.0 x10^3/uL (0.0-0.2) Prothrombin Time 14.5 SEC (11.7-14.0) Prothromb Time International Ratio 1.2 (0.8-1.1) D-Dimer (Emily) 6.09 ug/mlFEU (0.00-0.50) Sodium Level 130 mmol/L (136-145) Potassium Level 4.3 mmol/L (3.5-5.1) Chloride Level 93 mmol/L (98-107) Carbon Dioxide Level 20 mmol/L (21-32) Anion Gap 17 (6-14) Blood Urea Nitrogen 20 mg/dL (8-26) Creatinine 1.8 mg/dL (0.7-1.3) Estimated GFR (Cockcroft-Gault) 51.4 BUN/Creatinine Ratio 11 (6-20) Glucose Level 517 mg/dL (70-99) Calcium Level 9.4 mg/dL (8.5-10.1) Magnesium Level 1.8 mg/dL (1.8-2.4) Total Bilirubin 0.7 mg/dL (0.2-1.0) Aspartate Amino Transf (AST/SGOT) 15 U/L (15-37) Alanine Aminotransferase (ALT/SGPT) 26 U/L (16-63) Alkaline Phosphatase 106 U/L (46-116) Creatine Kinase 152 U/L (39-308) Creatine Kinase MB (Mass) 1.1 ng/mL (0.0-3.6) Creatine Kinase MB Relative Index 0.7 % (0-4) Troponin I Quantitative 0.196 ng/mL (0.000-0.055) GW-Afc-T-Type Natriuretic Peptide 592 pg/mL (0-124) Total Protein 8.4 g/dL (6.4-8.2) Albumin 3.3 g/dL (3.4-5.0) Albumin/Globulin Ratio 0.6 (1.0-1.7) Lipase 166 U/L (73-393) Thyroid Stimulating Hormone (TSH) 1.571 uIU/mL (0.358-3.74) Urine Collection Type Unknown Urine Color Yellow Urine Clarity Clear Urine pH 5.0 Urine Specific Aspen >=1.030 Urine Protein 30 mg/dL (NEG-TRACE) Urine Glucose (UA) >=1000 mg/dL (NEG) Urine Ketones (Stick) 40 mg/dL (NEG) Urine Blood Negative (NEG) Urine Nitrite Positive (NEG) Urine Bilirubin Negative (NEG) Urine Urobilinogen Dipstick 0.2 mg/dL (0.2 mg/dL) Urine Leukocyte Esterase Negative (NEG) Urine RBC 0 /HPF (0-2) Urine WBC 20-40 /HPF (0-4) Urine Squamous Epithelial Cells Few /LPF Urine Bacteria Moderate /HPF (0-FEW) Urine Hyaline Casts Few /HPF Urine Mucus Mod /LPF Urine Opiates Screen Neg (NEG) Urine Methadone Screen Neg (NEG) Urine Barbiturates Neg (NEG) Urine Phencyclidine Screen Neg (NEG) Urine Amphetamine/Methamphetamine Neg (NEG) Urine Benzodiazepines Screen Neg (NEG) Urine Cocaine Screen Neg (NEG) Urine Cannabinoids Screen Neg (NEG) Urine Ethyl Alcohol Neg (NEG) Glucose (Fingerstick) 313 mg/dL (70-99) Test 02/24/19 21:40 02/24/19 21:45 02/24/19 23:02 02/25/19 00:11 Sodium Level 138 mmol/L (136-145) Potassium Level 4.1 mmol/L (3.5-5.1) Chloride Level 100 mmol/L (98-107) Carbon Dioxide Level 22 mmol/L (21-32) Anion Gap 16 (6-14) Blood Urea Nitrogen 20 mg/dL (8-26) Creatinine 1.5 mg/dL (0.7-1.3) Estimated GFR (Cockcroft-Gault) 63.4 Glucose Level 328 mg/dL (70-99) Calcium Level 8.7 mg/dL (8.5-10.1) Phosphorus Level 3.5 mg/dL (2.6-4.7) Magnesium Level 1.8 mg/dL (1.8-2.4) Troponin I Quantitative 0.374 ng/mL (0.000-0.055) Glucose (Fingerstick) 286 mg/dL (70-99) 301 mg/dL (70-99) 279 mg/dL (70-99) Test 02/25/19 01:14 02/25/19 01:40 02/25/19 02:21 02/25/19 03:39 Glucose (Fingerstick) 230 mg/dL (70-99) 178 mg/dL (70-99) 154 mg/dL (70-99) Heparin Anti-Xa Act, Unfractionated 0.10 IU/mL (0.30-0.70) Sodium Level 139 mmol/L (136-145) Potassium Level 3.6 mmol/L (3.5-5.1) Chloride Level 103 mmol/L (98-107) Carbon Dioxide Level 24 mmol/L (21-32) Anion Gap 12 (6-14) Blood Urea Nitrogen 14 mg/dL (8-26) Creatinine 1.4 mg/dL (0.7-1.3) Estimated GFR (Cockcroft-Gault) 68.6 Glucose Level 234 mg/dL (70-99) Calcium Level 8.7 mg/dL (8.5-10.1) Test 02/25/19 08:14 Glucose (Fingerstick) 229 mg/dL (70-99) Medications Current Medications Aspirin (Mpayy Aspirin) 325 mg 1X ONCE PO Last administered on 02/24/19 16:48; Start 02/24/19 at 16:30; Stop 02/24/19 at 16:31; Status DC Nitroglycerin (Nitrostat) 0.4 mg PRN Q5MIN PRN SL CP RATING > 1/10 Last admini stered on 02/24/19at 16:49; Start 02/24/19 at 16:30; Stop 02/25/19 at 16:29 Morphine Sulfate (Morphine Sulfate) 4 mg PRN Q15MIN PRN IV/SQ PAIN GREATER THAN 3/10; Start 02/24/19 at 16:30; Stop 02/25/19 at 16:29 Sodium Chloride 1,000 ml @ 1,000 mls/hr 1X ONCE IV Last administered on 02/24/19at 17:35; Start 02/24/19 at 16:45; Stop 02/24/19 at 17:44; Status DC Insulin Human Regular (HumuLIN R VIAL) 10 unit 1X ONCE IV Last administered on 02/24/19at 18:53; Start 02/24/19 at 18:00; Stop 02/24/19 at 18:03; Status DC Sodium Chloride 1,000 ml @ 1,000 mls/hr 1X ONCE IV Last administered on 02/24/19at 18:53; Start 02/24/19 at 18:00; Stop 02/24/19 at 18:59; Status DC Sodium Bicarbonate (Sodium Bicarb Adult 8.4% Syr) 50 meq 1X ONCE IV Last administered on 02/24/19at 18:50; Start 02/24/19 at 18:00; Stop 02/24/19 at 18:03; Status DC Iohexol (Omnipaque 350 Mg/ml) 90 ml 1X ONCE IV Last administered on 02/24/19at 18:30; Start 02/24/19 at 18:30; Stop 02/24/19 at 18:31; Status DC Info (CONTRAST GIVEN -- Rx MONITORING) 1 each PRN DAILY PRN MC SEE COMMENTS; Start 02/24/19 at 18:30; Stop 02/26/19 at 18:29 Ondansetron HCl (Zofran) 8 mg 1X ONCE IM Last administered on 02/24/19at 18:47; Start 02/24/19 at 18:45; Stop 02/24/19 at 18:46; Status DC Enoxaparin Sodium (Lovenox Per Pharmacy Treatment Dosing) 1 each STAT STAT MC ; Start 02/24/19 at 18:50; Stop 02/24/19 at 18:54; Status DC Enoxaparin Sodium (Lovenox 100mg Syringe) 100 mg 1X ONCE SQ ; Start 02/24/19 at 19:30; Stop 02/24/19 at 19:30; Status DC Enoxaparin Sodium (Lovenox 80mg Syringe) 80 mg 1X ONCE SQ ; Start 02/24/19 at 19:30; Stop 02/24/19 at 19:30; Status DC Heparin Sodium/ Dextrose 500 ml @ 0 mls/hr CONT PRN IV SEE I/O RECORD Last administered on 02/24/19at 19:20; Start 02/24/19 at 19:15 Heparin Sodium (Porcine) (Heparin Sodium) 5,450 unit PRN Q6HRS PRN IV FOR UFH LEVEL LESS THAN 0.2 Last administered on 02/25/19at 04:06; Start 02/24/19 at 19:15 Info (Anti-Coagulation Monitoring By Pharmacy) 1 each PRN DAILY PRN MC SEE COMMENTS Last administered on 02/25/19at 07:25; Start 02/24/19 at 19:15 Ondansetron HCl (Zofran) 4 mg PRN Q8HRS PRN IV NAUSEA/VOMITING; Start 02/24/19 at 19:30; Stop 02/25/19 at 08:08; Status DC Morphine Sulfate (Morphine Sulfate) 4 mg PRN Q2HR PRN IV PAIN; Start 02/24/19 at 19:30; Stop 02/25/19 at 19:29 Acetaminophen (Tylenol) 650 mg PRN Q4HRS PRN PO FEVER; Start 02/24/19 at 19:30; Stop 02/25/19 at 19:29 Nitroglycerin (Nitrostat) 0.4 mg PRN Q5MIN PRN SL CHEST PAIN; Start 02/24/19 at 19:30; Stop 02/25/19 at 19:29 Insulin Human Lispro (HumaLOG) 0-7 UNITS TIDWMEALS SQ ; Start 02/25/19 at 08:00; Stop 02/25/19 at 08:00; Status DC Dextrose (Dextrose 50%-Water Syringe) 12.5 gm PRN Q15MIN PRN IV SEE COMMENTS; Start 02/24/19 at 19:30; Stop 02/25/19 at 07:11; Status DC Sodium Chloride 1,000 ml @ 125 mls/hr 1X ONCE IV Last administered on 02/24/19at 21:50; Start 02/24/19 at 19:30; Stop 02/25/19 at 03:29; Status DC Zolpidem Tartrate (Ambien) 5 mg PRN QHS PRN PO INSOMNIA Last administered on 02/24/19 22:53; Start 02/24/19 at 21:30 Aspirin (Ecotrin) 325 mg DAILYWBKFT PO Last administered on 02/25/19 08:21; Start 02/25/19 at 08:00 Atorvastatin Calcium (Lipitor) 40 mg QHS PO Last administered on 02/24/19 22:53; Start 02/24/19 at 22:00 Clopidogrel Bisulfate (Plavix) 75 mg DAILYWBKFT PO Last administered on 02/25/19 08:21; Start 02/25/19 at 08:00 Metoprolol Tartrate (Lopressor) 25 mg DAILY PO Last administered on 02/25/19 08:21; Start 02/25/19 at 09:00 Lisinopril (Prinivil) 2.5 mg DAILY PO Last administered on 02/25/19 08:20; Start 02/25/19 at 09:00 Pantoprazole Sodium (Protonix) 40 mg DAILYAC PO Last administered on 02/25/19 08:20; Start 02/25/19 at 07:30 Ceftriaxone Sodium (Rocephin) 2 gm Q24H IVP Last administered on 4/26/19at 22:53; Start 02/24/19 at 22:00 Insulin Human Regular 150 unit/ Sodium Chloride 151.5 ml @ 0 mls/hr CONT PRN PRN IV PER PROTOCOL Last administered on 02/24/19at 23:08; Start 02/24/19 at 21:30 Potassium Chloride/Water 100 ml @ 100 mls/hr PRN Q1HR PRN IV SEE COMMENTS Last administered on 02/25/19at 08:28; Start 02/24/19 at 21:30 Potassium Chloride/Water 100 ml @ 100 mls/hr PRN Q1HR PRN IV SEE COMMENTS; Start 02/24/19 at 21:30 Potassium Chloride/Water 100 ml @ 100 mls/hr PRN Q1HR PRN IV SEE COMMENTS; Start 02/24/19 at 21:30 Insulin Glargine (Lantus) 35 units QHS SQ Last administered on 02/25/19at 04:05; Start 02/25/19 at 04:00; Stop 02/25/19 at 08:09; Status DC Insulin Human Lispro (HumaLOG) 0-9 UNITS TIDWMEALS SQ Last administered on 02/25/19at 08:26; Start 02/25/19 at 08:00 Dextrose (Dextrose 50%-Water Syringe) 12.5 gm PRN Q15MIN PRN IV SEE COMMENTS; Start 02/25/19 at 03:30 Lactobacillus Rhamnosus (Culturelle) 1 cap BID PO Last administered on 02/25/19at 08:20; Start 02/25/19 at 09:00 Dextrose (Dextrose 50%-Water Syringe) 12.5 gm PRN Q15MIN PRN IV SEE COMMENTS; Start 02/25/19 at 07:45 Ondansetron HCl (Zofran) 4 mg PRN Q6HRS PRN IV NAUSEA/VOMITING; Start 02/25/19 at 08:15 Glyburide (Diabeta) 5 mg BIDWMEALS PO Last administered on 02/25/19at 08:36; Start 02/25/19 at 08:30 Insulin Glargine (Lantus) 25 units QHS SQ ; Start 02/25/19 at 21:00 Active Scripts Active Glyburide 5 Mg Tablet 5 Mg PO BIDWMEALS MDD 1 Lantus Solostar (Insulin Glargine,Hum.rec.anlog) 100 Unit/1 Ml Insuln.pen 25 Units SQ QHS MDD 1 30 Days [Pantoprazole] 40 MG Tablet. 40 Mg PO DAILYAC MDD 1 Aspirin Ec (Aspirin) 325 Mg Tablet.dr 325 Mg PO DAILYWBKFT MDD 1 Lisinopril 5 Mg Tablet 2.5 Mg PO DAILY MDD 1 Metoprolol Tartrate 25 Mg Tablet 25 Mg PO DAILY MDD 1 Atorvastatin Calcium 40 Mg Tablet 40 Mg PO QHS MDD 1 Clopidogrel (Clopidogrel Bisulfate) 75 Mg Tablet 75 Mg PO DAILYWBKFT MDD 1 Reported No Known Medications Prior To Admisstion (Info) Each 1 Each DAILY Vitals/I & O Vital Sign - Last 24 Hours 02/24/19 02/24/19 02/24/19 02/24/19 16:28 16:49 16:56 17:56 Temp 98.3 98.3 Pulse 125 115 118 120 Resp B/P (MAP) 149/83 (105) 149/83 101/65 (77) 129/82 (98) Pulse Ox 90 93 95 O2 Delivery Room Air Nasal Cannula Nasal Cannula O2 Flow Rate 2.0 2.0 02/24/19 02/24/19 02/24/19 02/24/19 18:44 19:14 19:44 20:14 Pulse 120 112 108 102 Resp B/P (MAP) 131/104 (113) 113/73 (86) 111/77 (88) 120/77 (91) Pulse Ox 93 94 96 97 O2 Delivery Nasal Cannula Nasal Cannula Nasal Cannula Nasal Cannula O2 Flow Rate 2.0 3.0 3.0 3.0 02/24/19 02/24/19 02/24/19 02/24/19 20:45 21:00 21:00 21:15 Temp 98.3 98.3 Pulse 112 104 104 Resp 30 B/P (MAP) 117/71 (86) 143/71 (95) 142/71 (94) Pulse Ox 93 94 97 O2 Delivery Nasal Cannula Nasal Cannula Nasal Cannula Nasal Cannula O2 Flow Rate 3.0 5.0 3.0 3.0 02/24/19 02/24/19 02/24/19 02/24/19 21:30 21:45 22:00 23:00 Pulse 104 104 102 96 Resp 30 B/P (MAP) 147/71 (96) 118/75 (89) 118/75 (89) 105/81 (89) Pulse Ox 97 98 98 97 O2 Delivery Nasal Cannula Nasal Cannula Nasal Cannula Nasal Cannula O2 Flow Rate 3.0 3.0 5.0 5.0 02/25/19 02/25/19 02/25/19 02/25/19 00:00 00:00 01:00 02:00 Temp 98.3 98.3 Pulse 100 11 99 Resp 30 24 B/P (MAP) 115/60 (78) 95/68 (77) 103/72 (82) Pulse Ox 96 97 96 O2 Delivery Nasal Cannula Nasal Cannula Nasal Cannula Nasal Cannula O2 Flow Rate 5.0 5.0 5.0 5.0 02/25/19 02/25/19 02/25/19 02/25/19 03:00 04:00 04:00 05:00 Temp 98.0 98.0 Pulse 95 100 103 Resp 15 34 21 B/P (MAP) 118/75 (89) 119/88 (98) 102/63 (76) Pulse Ox 93 92 95 O2 Delivery Nasal Cannula Nasal Cannula Nasal Cannula Nasal Cannula O2 Flow Rate 5.0 5.0 5.0 5.0 02/25/19 02/25/19 02/25/19 02/25/19 06:00 07:00 07:53 08:00 Temp 97.7 97.7 Pulse 96 98 103 Resp 28 20 28 B/P (MAP) 140/83 (102) 110/65 (80) 111/76 (88) Pulse Ox 98 100 98 O2 Delivery Nasal Cannula Nasal Cannula Nasal Cannula Nasal Cannula O2 Flow Rate 5.0 5.0 5.0 5.0 02/25/19 02/25/19 02/25/19 02/25/19 08:20 08:21 09:05 09:16 Pulse 103 103 89 Resp 28 B/P (MAP) 111/76 111/76 117/78 (91) Pulse Ox 97 O2 Delivery Nasal Cannula Nasal Cannula O2 Flow Rate 5.0 5.0 02/25/19 10:03 Pulse 84 Resp 26 B/P (MAP) 114/72 (86) Pulse Ox 97 O2 Delivery Nasal Cannula O2 Flow Rate 5.0 Intake and Output 02/24/19 02/24/19 02/25/19 15:00 23:00 07:00 Intake Total 2000 ml 1174 ml Output Total 500 ml Balance 1500 ml 1174 ml TRUMAN YANEZ MD Feb 25, 2019 10:58
[2019-02-25 11:01] LABS: BASO % 0 % (0-3); EOS # 0.1 x10^3/uL (0.0-0.7); EOS % 1 % (0-3); HEMOGLOBIN 13.4 g/dL (13.0-17.5); LYMPH # 2.8 x10^3/uL (1.0-4.8); LYMPH % 26 % (24-48); MEAN CORPUSCULAR HEMOGLOBIN 30 pg (25-35); MEAN CORPUSCULAR HGB CONC 33 g/dL (31-37); MEAN CORPUSCULAR VOLUME 89 fL (79-100); MONO # 0.7 x10^3/uL (0.0-1.1); MONO % 7 % (0-9); NEUT # 6.9 x10^3uL (1.8-7.7); NEUT % 66 % (31-73); PLATELET COUNT 160 x10^3/uL (140-400); RED BLOOD COUNT 4.49 x10^6/uL (4.30-5.70); RED CELL DISTRIBUTION WIDTH 13.4 % (11.5-14.5); WHITE BLOOD COUNT 10.6 x10^3/uL (4.0-11.0)
--- NOTE | 2019-02-25 11:09 | PDOC2 ---
CONSULT Date of Consult Date of Consult DATE: 02/25/19 TIME: 11:09 Reason for Consult Reason for Consult: Elevated troponin level Referring Physician Referring Physician: Dr. 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 He was diagnosed with extensive acute pulmonary embolism and admitted for further management. Cardiology has been consulted for slightly elevated troponin level. He is presently chest pain-free. He denied any orthopnea/PND, palpitations or syncope. Past Medical History Cardiovascular: CAD, HTN Endocrine: Diabetes Past Surgical History Past Surgical History: No pertinent history Family History Family History: Hypertension, Other (clotting) Social History No ALCOHOL: none Drugs: None Current Problem List Problem List Problems Medical Problems: (1) Acute renal failure Status: Acute (2) Chest pain Status: Acute (3) DKA (diabetic ketoacidoses) Status: Acute (4) NSTEMI (non-ST elevated myocardial infarction) Status: Acute (5) Pulmonary embolism Status: Acute Current Medications Current Medications Current Medications Aspirin (Stanislaw Aspirin) 325 mg 1X ONCE PO Last administered on 02/24/19at 16:48; Start 02/24/19 at 16:30; Stop 02/24/19 at 16:31; Status DC Nitroglycerin (Nitrostat) 0.4 mg PRN Q5MIN PRN SL CP RATING > 1/10 Last administered on 02/24/19at 16:49; Start 02/24/19 at 16:30; Stop 02/25/19 at 16:29 Morphine Sulfate (Morphine Sulfate) 4 mg PRN Q15MIN PRN IV/SQ PAIN GREATER THAN 3/10; Start 02/24/19 at 16:30; Stop 02/25/19 at 16:29 Sodium Chloride 1,000 ml @ 1,000 mls/hr 1X ONCE IV Last administered on 02/24/19at 17:35; Start 02/24/19 at 16:45; Stop 02/24/19 at 17:44; Status DC Insulin Human Regular (HumuLIN R VIAL) 10 unit 1X ONCE IV Last administered on 02/24/19at 18:53; Start 02/24/19 at 18:00; Stop 02/24/19 at 18:03; Status DC Sodium Chloride 1,000 ml @ 1,000 mls/hr 1X ONCE IV Last administered on 02/24/19at 18:53; Start 02/24/19 at 18:00; Stop 02/24/19 at 18:59; Status DC Sodium Bicarbonate (Sodium Bicarb Adult 8.4% Syr) 50 meq 1X ONCE IV Last administered on 02/24/19at 18:50; Start 02/24/19 at 18:00; Stop 02/24/19 at 18:03; Status DC Iohexol (Omnipaque 350 Mg/ml) 90 ml 1X ONCE IV Last administered on 02/24/19at 18:30; Start 02/24/19 at 18:30; Stop 02/24/19 at 18:31; Status DC Info (CONTRAST GIVEN -- Rx MONITORING) 1 each PRN DAILY PRN MC SEE COMMENTS; Start 02/24/19 at 18:30; Stop 02/26/19 at 18:29 Ondansetron HCl (Zofran) 8 mg 1X ONCE IM Last administered on 02/24/19at 18:47; Start 02/24/19 at 18:45; Stop 02/24/19 at 18:46; Status DC Enoxaparin Sodium (Lovenox Per Pharmacy Treatment Dosing) 1 each STAT STAT MC ; Start 02/24/19 at 18:50; Stop 02/24/19 at 18:54; Status DC Enoxaparin Sodium (Lovenox 100mg Syringe) 100 mg 1X ONCE SQ ; Start 02/24/19 at 19:30; Stop 02/24/19 at 19:30; Status DC Enoxaparin Sodium (Lovenox 80mg Syringe) 80 mg 1X ONCE SQ ; Start 02/24/19 at 19:30; Stop 02/24/19 at 19:30; Status DC Heparin Sodium/ Dextrose 500 ml @ 0 mls/hr CONT PRN IV SEE I/O RECORD Last administered on 02/24/19at 19:20; Start 02/24/19 at 19:15 Heparin Sodium (Porcine) (Heparin Sodium) 5,450 unit PRN Q6HRS PRN IV FOR UFH LEVEL LESS THAN 0.2 Last administered on 02/25/19at 04:06; Start 02/24/19 at 19:15 Info (Anti-Coagulation Monitoring By Pharmacy) 1 each PRN DAILY PRN MC SEE COMMENTS Last administered on 02/25/19at 07:25; Start 02/24/19 at 19:15 Ondansetron HCl (Zofran) 4 mg PRN Q8HRS PRN IV NAUSEA/VOMITING; Start 02/24/19 at 19:30; Stop 02/25/19 at 08:08; Status DC Morphine Sulfate (Morphine Sulfate) 4 mg PRN Q2HR PRN IV PAIN; Start 02/24/19 at 19:30; Stop 02/25/19 at 19:29 Acetaminophen (Tylenol) 650 mg PRN Q4HRS PRN PO FEVER; Start 02/24/19 at 19:30; Stop 02/25/19 at 19:29 Nitroglycerin (Nitrostat) 0.4 mg PRN Q5MIN PRN SL CHEST PAIN; Start 02/24/19 at 19:30; Stop 02/25/19 at 19:29 Insulin Human Lispro (HumaLOG) 0-7 UNITS TIDWMEALS SQ ; Start 02/25/19 at 08:00; Stop 02/25/19 at 08:00; Status DC Dextrose (Dextrose 50%-Water Syringe) 12.5 gm PRN Q15MIN PRN IV SEE COMMENTS; Start 02/24/19 at 19:30; Stop 02/25/19 at 07:11; Status DC Sodium Chloride 1,000 ml @ 125 mls/hr 1X ONCE IV Last administered on 02/24/19at 21:50; Start 02/24/19 at 19:30; Stop 02/25/19 at 03:29; Status DC Zolpidem Tartrate (Ambien) 5 mg PRN QHS PRN PO INSOMNIA Last administered on 02/24/19at 22:53; Start 02/24/19 at 21:30 Aspirin (Ecotrin) 325 mg DAILYWBKFT PO Last administered on 02/25/19at 08:21; Start 02/25/19 at 08:00 Atorvastatin Calcium (Lipitor) 40 mg QHS PO Last administered on 02/24/19at 22 :53; Start 02/24/19 at 22:00 Clopidogrel Bisulfate (Plavix) 75 mg DAILYWBKFT PO Last administered on 4/27/19at 08:21; Start 02/25/19 at 08:00 Metoprolol Tartrate (Lopressor) 25 mg DAILY PO Last administered on 02/25/19 08:21; Start 02/25/19 at 09:00 Lisinopril (Prinivil) 2.5 mg DAILY PO Last administered on 02/25/19 08:20; Start 02/25/19 at 09:00 Pantoprazole Sodium (Protonix) 40 mg DAILYAC PO Last administered on 02/25/19 08:20; Start 02/25/19 at 07:30 Ceftriaxone Sodium (Rocephin) 2 gm Q24H IVP Last administered on 02/24/19at 22:53; Start 02/24/19 at 22:00 Insulin Human Regular 150 unit/ Sodium Chloride 151.5 ml @ 0 mls/hr CONT PRN PRN IV PER PROTOCOL Last administered on 02/24/19at 23:08; Start 02/24/19 at 21:30; Stop 02/25/19 at 10:59; Status DC Potassium Chloride/Water 100 ml @ 100 mls/hr PRN Q1HR PRN IV SEE COMMENTS Last administered on 02/25/19at 08:28; Start 02/24/19 at 21:30; Stop 02/25/19 at 10:59; Status DC Potassium Chloride/Water 100 ml @ 100 mls/hr PRN Q1HR PRN IV SEE COMMENTS; Start 02/24/19 at 21:30; Stop 02/25/19 at 10:59; Status DC Potassium Chloride/Water 100 ml @ 100 mls/hr PRN Q1HR PRN IV SEE COMMENTS; Start 02/24/19 at 21:30; Stop 02/25/19 at 10:59; Status DC Insulin Glargine (Lantus) 35 units QHS SQ Last administered on 02/25/19at 04:05; Start 02/25/19 at 04:00; Stop 02/25/19 at 08:09; Status DC Insulin Human Lispro (HumaLOG) 0-9 UNITS TIDWMEALS SQ Last administered on 02/25/19at 08:26; Start 02/25/19 at 08:00 Dextrose (Dextrose 50%-Water Syringe) 12.5 gm PRN Q15MIN PRN IV SEE COMMENTS; Start 02/25/19 at 03:30 Lactobacillus Rhamnosus (Culturelle) 1 cap BID PO Last administered on 02/25/19at 08:20; Start 02/25/19 at 09:00 Dextrose (Dextrose 50%-Water Syringe) 12.5 gm PRN Q15MIN PRN IV SEE COMMENTS; Start 02/25/19 at 07:45 Ondansetron HCl (Zofran) 4 mg PRN Q6HRS PRN IV NAUSEA/VOMITING; Start 02/25/19 at 08:15 Glyburide (Diabeta) 5 mg BIDWMEALS PO Last administered on 02/25/19at 08:36; Start 02/25/19 at 08:30 Insulin Glargine (Lantus) 25 units QHS SQ ; Start 02/25/19 at 21:00 Insulin Glargine (Lantus) 20 units 1X STAT SQ ; Start 02/25/19 at 10:58; Stop 02/25/19 at 11:03; Status DC Potassium Chloride (Klor-Con) 40 meq DAILYWBKFT PO ; Start 02/26/19 at 08:00 Active Scripts Active Glyburide 5 Mg Tablet 5 Mg PO BIDWMEALS MDD 1 Lantus Solostar (Insulin Glargine,Hum.rec.anlog) 100 Unit/1 Ml Insuln.pen 25 Units SQ QHS MDD 1 30 Days [Pantoprazole] 40 MG Tablet.dr 40 Mg PO DAILYAC MDD 1 Aspirin Ec (Aspirin) 325 Mg Tablet.dr 325 Mg PO DAILYWBKFT MDD 1 Lisinopril 5 Mg Tablet 2.5 Mg PO DAILY MDD 1 Metoprolol Tartrate 25 Mg Tablet 25 Mg PO DAILY MDD 1 Atorvastatin Calcium 40 Mg Tablet 40 Mg PO QHS MDD 1 Clopidogrel (Clopidogrel Bisulfate) 75 Mg Tablet 75 Mg PO DAILYWBKFT MDD 1 Reported No Known Medications Prior To Admisstion (Info) Each 1 Each MC DAILY Allergies Allergies: Coded Allergies: No Known Drug Allergies (Unverified , 09/04/16) ROS PSYCHOLOGICAL ROS: No: Hallucinations Eyes: No Loss of vision HEENT: No: Epistaxis Respiratory: YES: Shortness of breath; No: Hemoptysis Cardiovascular: yes Chest Pain Gastrointestinal: No Vomiting, No Diarrhea Genitourinary: No Hematuria Neurological: No Seizures Skin: No Rash Physical Exam General: Alert, Oriented X3 HEENT: Atraumatic, PERRLA Lungs: Clear to auscultation Heart: Regular rate Abdomen: Soft, No tenderness Extremities: No edema Neuro: Normal speech Psych/Mental Status: Mood NL Vitals VITALS Vital Signs Date Time Temp Pulse Resp B/P (MAP) Pulse Ox O2 Delivery O2 Flow Rate FiO2 02/25/19 10:03 84 26 114/72 (86) 97 Nasal Cannula 5.0 02/25/19 07:00 97.7 97.7 Labs Labs Laboratory Tests Test 02/24/19 16:20 02/24/19 17:20 02/24/19 19:00 02/24/19 20:10 White Blood Count 9.4 x10^3/uL (4.0-11.0) Red Blood Count 5.29 x10^6/uL (4.30-5.70) Hemoglobin 15.8 g/dL (13.0-17.5) Hematocrit 47.2 % (39.0-53.0) Mean Corpuscular Volume 89 fL (79-100) Mean Corpuscular Hemoglobin 30 pg (25-35) Mean Corpuscular Hemoglobin Concent 33 g/dL (31-37) Red Cell Distribution Width 13.7 % (11.5-14.5) Platelet Count 173 x10^3/uL (140-400) Neutrophils (%) (Auto) 71 % (31-73) Lymphocytes (%) (Auto) 21 % (24-48) Monocytes (%) (Auto) 7 % (0-9) Eosinophils (%) (Auto) 1 % (0-3) Basophils (%) (Auto) 1 % (0-3) Neutrophils # (Auto) 6.7 x10^3uL (1.8-7.7) Lymphocytes # (Auto) 1.9 x10^3/uL (1.0-4.8) Monocytes # (Auto) 0.7 x10^3/uL (0.0-1.1) Eosinophils # (Auto) 0.1 x10^3/uL (0.0-0.7) Basophils # (Auto) 0.0 x10^3/uL (0.0-0.2) Prothrombin Time 14.5 SEC (11.7-14.0) Prothromb Time International Ratio 1.2 (0.8-1.1) D-Dimer (Emily) 6.09 ug/mlFEU (0.00-0.50) Sodium Level 130 mmol/L (136-145) Potassium Level 4.3 mmol/L (3.5-5.1) Chloride Level 93 mmol/L (98-107) Carbon Dioxide Level 20 mmol/L (21-32) Anion Gap 17 (6-14) Blood Urea Nitrogen 20 mg/dL (8-26) Creatinine 1.8 mg/dL (0.7-1.3) Estimated GFR (Cockcroft-Gault) 51.4 BUN/Creatinine Ratio 11 (6-20) Glucose Level 517 mg/dL (70-99) Calcium Level 9.4 mg/dL (8.5-10.1) Magnesium Level 1.8 mg/dL (1.8-2.4) Total Bilirubin 0.7 mg/dL (0.2-1.0) Aspartate Amino Transf (AST/SGOT) 15 U/L (15-37) Alanine Aminotransferase (ALT/SGPT) 26 U/L (16-63) Alkaline Phosphatase 106 U/L (46-116) Creatine Kinase 152 U/L (39-308) Creatine Kinase MB (Mass) 1.1 ng/mL (0.0-3.6) Creatine Kinase MB Relative Index 0.7 % (0-4) Troponin I Quantitative 0.196 ng/mL (0.000-0.055) PH-Lhy-M-Type Natriuretic Peptide 592 pg/mL (0-124) Total Protein 8.4 g/dL (6.4-8.2) Albumin 3.3 g/dL (3.4-5.0) Albumin/Globulin Ratio 0.6 (1.0-1.7) Lipase 166 U/L (73-393) Thyroid Stimulating Hormone (TSH) 1.571 uIU/mL (0.358-3.74) Urine Collection Type Unknown Urine Color Yellow Urine Clarity Clear Urine pH 5.0 Urine Specific [place] >=1.030 Urine Protein 30 mg/dL (NEG-TRACE) Urine Glucose (UA) >=1000 mg/dL (NEG) Urine Ketones (Stick) 40 mg/dL (NEG) Urine Blood Negative (NEG) Urine Nitrite Positive (NEG) Urine Bilirubin Negative (NEG) Urine Urobilinogen Dipstick 0.2 mg/dL (0.2 mg/dL) Urine Leukocyte Esterase Negative (NEG) Urine RBC 0 /HPF (0-2) Urine WBC 20-40 /HPF (0-4) Urine Squamous Epithelial Cells Few /LPF Urine Bacteria Moderate /HPF (0-FEW) Urine Hyaline Casts Few /HPF Urine Mucus Mod /LPF Urine Opiates Screen Neg (NEG) Urine Methadone Screen Neg (NEG) Urine Barbiturates Neg (NEG) Urine Phencyclidine Screen Neg (NEG) Urine Amphetamine/Methamphetamine Neg (NEG) Urine Benzodiazepines Screen Neg (NEG) Urine Cocaine Screen Neg (NEG) Urine Cannabinoids Screen Neg (NEG) Urine Ethyl Alcohol Neg (NEG) Glucose (Fingerstick) 313 mg/dL (70-99) Test 02/24/19 21:40 02/24/19 21:45 02/24/19 23:02 02/25/19 00:11 Sodium Level 138 mmol/L (136-145) Potassium Level 4.1 mmol/L (3.5-5.1) Chloride Level 100 mmol/L (98-107) Carbon Dioxide Level 22 mmol/L (21-32) Anion Gap 16 (6-14) Blood Urea Nitrogen 20 mg/dL (8-26) Creatinine 1.5 mg/dL (0.7-1.3) Estimated GFR (Cockcroft-Gault) 63.4 Glucose Level 328 mg/dL (70-99) Calcium Level 8.7 mg/dL (8.5-10.1) Phosphorus Level 3.5 mg/dL (2.6-4.7) Magnesium Level 1.8 mg/dL (1.8-2.4) Troponin I Quantitative 0.374 ng/mL (0.000-0.055) Glucose (Fingerstick) 286 mg/dL (70-99) 301 mg/dL (70-99) 279 mg/dL (70-99) Test 02/25/19 01:14 02/25/19 01:40 02/25/19 02:21 02/25/19 03:39 Glucose (Fingerstick) 230 mg/dL (70-99) 178 mg/dL (70-99) 154 mg/dL (70-99) Heparin Anti-Xa Act, Unfractionated 0.10 IU/mL (0.30-0.70) Sodium Level 139 mmol/L (136-145) Potassium Level 3.6 mmol/L (3.5-5.1) Chloride Level 103 mmol/L (98-107) Carbon Dioxide Level 24 mmol/L (21-32) Anion Gap 12 (6-14) Blood Urea Nitrogen 14 mg/dL (8-26) Creatinine 1.4 mg/dL (0.7-1.3) Estimated GFR (Cockcroft-Gault) 68.6 Glucose Level 234 mg/dL (70-99) Calcium Level 8.7 mg/dL (8.5-10.1) Test 02/25/19 08:14 02/25/19 10:32 Glucose (Fingerstick) 229 mg/dL (70-99) White Blood Count 10.6 x10^3/uL (4.0-11.0) Red Blood Count 4.49 x10^6/uL (4.30-5.70) Hemoglobin 13.4 g/dL (13.0-17.5) Hematocrit 40.0 % (39.0-53.0) Mean Corpuscular Volume 89 fL (79-100) Mean Corpuscular Hemoglobin 30 pg (25-35) Mean Corpuscular Hemoglobin Concent 33 g/dL (31-37) Red Cell Distribution Width 13.4 % (11.5-14.5) Platelet Count 160 x10^3/uL (140-400) Neutrophils (%) (Auto) 66 % (31-73) Lymphocytes (%) (Auto) 26 % (24-48) Monocytes (%) (Auto) 7 % (0-9) Eosinophils (%) (Auto) 1 % (0-3) Basophils (%) (Auto) 0 % (0-3) Neutrophils # (Auto) 6.9 x10^3uL (1.8-7.7) Lymphocytes # (Auto) 2.8 x10^3/uL (1.0-4.8) Monocytes # (Auto) 0.7 x10^3/uL (0.0-1.1) Eosinophils # (Auto) 0.1 x10^3/uL (0.0-0.7) Basophils # (Auto) 0.0 x10^3/uL (0.0-0.2) Laboratory Tests Test 02/24/19 16:20 02/24/19 17:20 02/24/19 19:00 02/24/19 20:10 White Blood Count 9.4 x10^3/uL (4.0-11.0) Red Blood Count 5.29 x10^6/uL (4.30-5.70) Hemoglobin 15.8 g/dL (13.0-17.5) Hematocrit 47.2 % (39.0-53.0) Mean Corpuscular Volume 89 fL (79-100) Mean Corpuscular Hemoglobin 30 pg (25-35) Mean Corpuscular Hemoglobin Concent 33 g/dL (31-37) Red Cell Distribution Width 13.7 % (11.5-14.5) Platelet Count 173 x10^3/uL (140-400) Neutrophils (%) (Auto) 71 % (31-73) Lymphocytes (%) (Auto) 21 % (24-48) Monocytes (%) (Auto) 7 % (0-9) Eosinophils (%) (Auto) 1 % (0-3) Basophils (%) (Auto) 1 % (0-3) Neutrophils # (Auto) 6.7 x10^3uL (1.8-7.7) Lymphocytes # (Auto) 1.9 x10^3/uL (1.0-4.8) Monocytes # (Auto) 0.7 x10^3/uL (0.0-1.1) Eosinophils # (Auto) 0.1 x10^3/uL (0.0-0.7) Basophils # (Auto) 0.0 x10^3/uL (0.0-0.2) Prothrombin Time 14.5 SEC (11.7-14.0) Prothromb Time International Ratio 1.2 (0.8-1.1) D-Dimer (Emily) 6.09 ug/mlFEU (0.00-0.50) Sodium Level 130 mmol/L (136-145) Potassium Level 4.3 mmol/L (3.5-5.1) Chloride Level 93 mmol/L (98-107) Carbon Dioxide Level 20 mmol/L (21-32) Anion Gap 17 (6-14) Blood Urea Nitrogen 20 mg/dL (8-26) Creatinine 1.8 mg/dL (0.7-1.3) Estimated GFR (Cockcroft-Gault) 51.4 BUN/Creatinine Ratio 11 (6-20) Glucose Level 517 mg/dL (70-99) Calcium Level 9.4 mg/dL (8.5-10.1) Magnesium Level 1.8 mg/dL (1.8-2.4) Total Bilirubin 0.7 mg/dL (0.2-1.0) Aspartate Amino Transf (AST/SGOT) 15 U/L (15-37) Alanine Aminotransferase (ALT/SGPT) 26 U/L (16-63) Alkaline Phosphatase 106 U/L (46-116) Creatine Kinase 152 U/L (39-308) Creatine Kinase MB (Mass) 1.1 ng/mL (0.0-3.6) Creatine Kinase MB Relative Index 0.7 % (0-4) Troponin I Quantitative 0.196 ng/mL (0.000-0.055) HR-Kqq-O-Type Natriuretic Peptide 592 pg/mL (0-124) Total Protein 8.4 g/dL (6.4-8.2) Albumin 3.3 g/dL (3.4-5.0) Albumin/Globulin Ratio 0.6 (1.0-1.7) Lipase 166 U/L (73-393) Thyroid Stimulating Hormone (TSH) 1.571 uIU/mL (0.358-3.74) Urine Collection Type Unknown Urine Color Yellow Urine Clarity Clear Urine pH 5.0 Urine Specific [place] >=1.030 Urine Protein 30 mg/dL (NEG-TRACE) Urine Glucose (UA) >=1000 mg/dL (NEG) Urine Ketones (Stick) 40 mg/dL (NEG) Urine Blood Negative (NEG) Urine Nitrite Positive (NEG) Urine Bilirubin Negative (NEG) Urine Urobilinogen Dipstick 0.2 mg/dL (0.2 mg/dL) Urine Leukocyte Esterase Negative (NEG) Urine RBC 0 /HPF (0-2) Urine WBC 20-40 /HPF (0-4) Urine Squamous Epithelial Cells Few /LPF Urine Bacteria Moderate /HPF (0-FEW) Urine Hyaline Casts Few /HPF Urine Mucus Mod /LPF Urine Opiates Screen Neg (NEG) Urine Methadone Screen Neg (NEG) Urine Barbiturates Neg (NEG) Urine Phencyclidine Screen Neg (NEG) Urine Amphetamine/Methamphetamine Neg (NEG) Urine Benzodiazepines Screen Neg (NEG) Urine Cocaine Screen Neg (NEG) Urine Cannabinoids Screen Neg (NEG) Urine Ethyl Alcohol Neg (NEG) Glucose (Fingerstick) 313 mg/dL (70-99) Test 02/24/19 21:40 02/24/19 21:45 02/24/19 23:02 02/25/19 00:11 Sodium Level 138 mmol/L (136-145) Potassium Level 4.1 mmol/L (3.5-5.1) Chloride Level 100 mmol/L (98-107) Carbon Dioxide Level 22 mmol/L (21-32) Anion Gap 16 (6-14) Blood Urea Nitrogen 20 mg/dL (8-26) Creatinine 1.5 mg/dL (0.7-1.3) Estimated GFR (Cockcroft-Gault) 63.4 Glucose Level 328 mg/dL (70-99) Calcium Level 8.7 mg/dL (8.5-10.1) Phosphorus Level 3.5 mg/dL (2.6-4.7) Magnesium Level 1.8 mg/dL (1.8-2.4) Troponin I Quantitative 0.374 ng/mL (0.000-0.055) Glucose (Fingerstick) 286 mg/dL (70-99) 301 mg/dL (70-99) 279 mg/dL (70-99) Test 02/25/19 01:14 02/25/19 01:40 02/25/19 02:21 02/25/19 03:39 Glucose (Fingerstick) 230 mg/dL (70-99) 178 mg/dL (70-99) 154 mg/dL (70-99) Heparin Anti-Xa Act, Unfractionated 0.10 IU/mL (0.30-0.70) Sodium Level 139 mmol/L (136-145) Potassium Level 3.6 mmol/L (3.5-5.1) Chloride Level 103 mmol/L (98-107) Carbon Dioxide Level 24 mmol/L (21-32) Anion Gap 12 (6-14) Blood Urea Nitrogen 14 mg/dL (8-26) Creatinine 1.4 mg/dL (0.7-1.3) Estimated GFR (Cockcroft-Gault) 68.6 Glucose Level 234 mg/dL (70-99) Calcium Level 8.7 mg/dL (8.5-10.1) Test 02/25/19 08:14 02/25/19 10:32 Glucose (Fingerstick) 229 mg/dL (70-99) White Blood Count 10.6 x10^3/uL (4.0-11.0) Red Blood Count 4.49 x10^6/uL (4.30-5.70) Hemoglobin 13.4 g/dL (13.0-17.5) Hematocrit 40.0 % (39.0-53.0) Mean Corpuscular Volume 89 fL (79-100) Mean Corpuscular Hemoglobin 30 pg (25-35) Mean Corpuscular Hemoglobin Concent 33 g/dL (31-37) Red Cell Distribution Width 13.4 % (11.5-14.5) Platelet Count 160 x10^3/uL (140-400) Neutrophils (%) (Auto) 66 % (31-73) Lymphocytes (%) (Auto) 26 % (24-48) Monocytes (%) (Auto) 7 % (0-9) Eosinophils (%) (Auto) 1 % (0-3) Basophils (%) (Auto) 0 % (0-3) Neutrophils # (Auto) 6.9 x10^3uL (1.8-7.7) Lymphocytes # (Auto) 2.8 x10^3/uL (1.0-4.8) Monocytes # (Auto) 0.7 x10^3/uL (0.0-1.1) Eosinophils # (Auto) 0.1 x10^3/uL (0.0-0.7) Basophils # (Auto) 0.0 x10^3/uL (0.0-0.2) Assessment/Plan Assessment/Plan 1. Acute pulmonary embolism: Continue anticoagulation per pulmonary team 2. Slightly elevated troponin level most probably secondary to right ventricle strain/demand ischemia. 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 This was managed medically without any stent placement. 2-D echo at that time showed LVEF 55-60%. Continue current medical regimen. 3. Hypertension: Controlled 4. Hyperlipidemia: Continue statins 5. Diabetes mellitus type 2: Treated per IM Thank you for your consultation DOUGLAS GLEASON MD Feb 25, 2019 11:09
[2019-02-25 11:29] LABS: ALBUMIN 2.6 g/dL (3.4-5.0); ALBUMIN/GLOBULIN RATIO 0.6 (1.0-1.7); CALCIUM 8.3 mg/dL (8.5-10.1); CREATININE 1.4 mg/dL (0.7-1.3); GFR 68.6; POTASSIUM 3.6 mmol/L (3.5-5.1); TOTAL BILIRUBIN 0.5 mg/dL (0.2-1.0); TOTAL PROTEIN 6.8 g/dL (6.4-8.2)
--- NOTE | 2019-02-25 11:43 | PDOC ---
PULMONARY PROGRESS NOTES Vitals Vital Signs Date Time Temp Pulse Resp B/P (MAP) Pulse Ox O2 Delivery O2 Flow Rate FiO2 02/25/19 11:09 89 21 114/74 (87) 99 Nasal Cannula 5.0 02/25/19 07:00 97.7 97.7 Lungs: Other Cardiovascular: S1, S2 Labs Laboratory Tests Test 02/24/19 16:20 02/24/19 17:20 02/24/19 19:00 02/24/19 20:10 White Blood Count 9.4 x10^3/uL (4.0-11.0) Red Blood Count 5.29 x10^6/uL (4.30-5.70) Hemoglobin 15.8 g/dL (13.0-17.5) Hematocrit 47.2 % (39.0-53.0) Mean Corpuscular Volume 89 fL (79-100) Mean Corpuscular Hemoglobin 30 pg (25-35) Mean Corpuscular Hemoglobin Concent 33 g/dL (31-37) Red Cell Distribution Width 13.7 % (11.5-14.5) Platelet Count 173 x10^3/uL (140-400) Neutrophils (%) (Auto) 71 % (31-73) Lymphocytes (%) (Auto) 21 % (24-48) Monocytes (%) (Auto) 7 % (0-9) Eosinophils (%) (Auto) 1 % (0-3) Basophils (%) (Auto) 1 % (0-3) Neutrophils # (Auto) 6.7 x10^3uL (1.8-7.7) Lymphocytes # (Auto) 1.9 x10^3/uL (1.0-4.8) Monocytes # (Auto) 0.7 x10^3/uL (0.0-1.1) Eosinophils # (Auto) 0.1 x10^3/uL (0.0-0.7) Basophils # (Auto) 0.0 x10^3/uL (0.0-0.2) Prothrombin Time 14.5 SEC (11.7-14.0) Prothromb Time International Ratio 1.2 (0.8-1.1) D-Dimer (Emily) 6.09 ug/mlFEU (0.00-0.50) Sodium Level 130 mmol/L (136-145) Potassium Level 4.3 mmol/L (3.5-5.1) Chloride Level 93 mmol/L (98-107) Carbon Dioxide Level 20 mmol/L (21-32) Anion Gap 17 (6-14) Blood Urea Nitrogen 20 mg/dL (8-26) Creatinine 1.8 mg/dL (0.7-1.3) Estimated GFR (Cockcroft-Gault) 51.4 BUN/Creatinine Ratio 11 (6-20) Glucose Level 517 mg/dL (70-99) Calcium Level 9.4 mg/dL (8.5-10.1) Magnesium Level 1.8 mg/dL (1.8-2.4) Total Bilirubin 0.7 mg/dL (0.2-1.0) Aspartate Amino Transf (AST/SGOT) 15 U/L (15-37) Alanine Aminotransferase (ALT/SGPT) 26 U/L (16-63) Alkaline Phosphatase 106 U/L (46-116) Creatine Kinase 152 U/L (39-308) Creatine Kinase MB (Mass) 1.1 ng/mL (0.0-3.6) Creatine Kinase MB Relative Index 0.7 % (0-4) Troponin I Quantitative 0.196 ng/mL (0.000-0.055) DV-Mht-H-Type Natriuretic Peptide 592 pg/mL (0-124) Total Protein 8.4 g/dL (6.4-8.2) Albumin 3.3 g/dL (3.4-5.0) Albumin/Globulin Ratio 0.6 (1.0-1.7) Lipase 166 U/L (73-393) Thyroid Stimulating Hormone (TSH) 1.571 uIU/mL (0.358-3.74) Urine Collection Type Unknown Urine Color Yellow Urine Clarity Clear Urine pH 5.0 Urine Specific [place] >=1.030 Urine Protein 30 mg/dL (NEG-TRACE) Urine Glucose (UA) >=1000 mg/dL (NEG) Urine Ketones (Stick) 40 mg/dL (NEG) Urine Blood Negative (NEG) Urine Nitrite Positive (NEG) Urine Bilirubin Negative (NEG) Urine Urobilinogen Dipstick 0.2 mg/dL (0.2 mg/dL) Urine Leukocyte Esterase Negative (NEG) Urine RBC 0 /HPF (0-2) Urine WBC 20-40 /HPF (0-4) Urine Squamous Epithelial Cells Few /LPF Urine Bacteria Moderate /HPF (0-FEW) Urine Hyaline Casts Few /HPF Urine Mucus Mod /LPF Urine Opiates Screen Neg (NEG) Urine Methadone Screen Neg (NEG) Urine Barbiturates Neg (NEG) Urine Phencyclidine Screen Neg (NEG) Urine Amphetamine/Methamphetamine Neg (NEG) Urine Benzodiazepines Screen Neg (NEG) Urine Cocaine Screen Neg (NEG) Urine Cannabinoids Screen Neg (NEG) Urine Ethyl Alcohol Neg (NEG) Glucose (Fingerstick) 313 mg/dL (70-99) Test 02/24/19 21:40 02/24/19 21:45 02/24/19 23:02 02/25/19 00:11 Sodium Level 138 mmol/L (136-145) Potassium Level 4.1 mmol/L (3.5-5.1) Chloride Level 100 mmol/L (98-107) Carbon Dioxide Level 22 mmol/L (21-32) Anion Gap 16 (6-14) Blood Urea Nitrogen 20 mg/dL (8-26) Creatinine 1.5 mg/dL (0.7-1.3) Estimated GFR (Cockcroft-Gault) 63.4 Glucose Level 328 mg/dL (70-99) Calcium Level 8.7 mg/dL (8.5-10.1) Phosphorus Level 3.5 mg/dL (2.6-4.7) Magnesium Level 1.8 mg/dL (1.8-2.4) Troponin I Quantitative 0.374 ng/mL (0.000-0.055) Glucose (Fingerstick) 286 mg/dL (70-99) 301 mg/dL (70-99) 279 mg/dL (70-99) Test 02/25/19 01:14 02/25/19 01:40 02/25/19 02:21 02/25/19 03:39 Glucose (Fingerstick) 230 mg/dL (70-99) 178 mg/dL (70-99) 154 mg/dL (70-99) Heparin Anti-Xa Act, Unfractionated 0.10 IU/mL (0.30-0.70) Sodium Level 139 mmol/L (136-145) Potassium Level 3.6 mmol/L (3.5-5.1) Chloride Level 103 mmol/L (98-107) Carbon Dioxide Level 24 mmol/L (21-32) Anion Gap 12 (6-14) Blood Urea Nitrogen 14 mg/dL (8-26) Creatinine 1.4 mg/dL (0.7-1.3) Estimated GFR (Cockcroft-Gault) 68.6 Glucose Level 234 mg/dL (70-99) Calcium Level 8.7 mg/dL (8.5-10.1) Test 02/25/19 08:14 02/25/19 10:32 02/25/19 11:13 Glucose (Fingerstick) 229 mg/dL (70-99) 324 mg/dL (70-99) White Blood Count 10.6 x10^3/uL (4.0-11.0) Red Blood Count 4.49 x10^6/uL (4.30-5.70) Hemoglobin 13.4 g/dL (13.0-17.5) Hematocrit 40.0 % (39.0-53.0) Mean Corpuscular Volume 89 fL (79-100) Mean Corpuscular Hemoglobin 30 pg (25-35) Mean Corpuscular Hemoglobin Concent 33 g/dL (31-37) Red Cell Distribution Width 13.4 % (11.5-14.5) Platelet Count 160 x10^3/uL (140-400) Neutrophils (%) (Auto) 66 % (31-73) Lymphocytes (%) (Auto) 26 % (24-48) Monocytes (%) (Auto) 7 % (0-9) Eosinophils (%) (Auto) 1 % (0-3) Basophils (%) (Auto) 0 % (0-3) Neutrophils # (Auto) 6.9 x10^3uL (1.8-7.7) Lymphocytes # (Auto) 2.8 x10^3/uL (1.0-4.8) Monocytes # (Auto) 0.7 x10^3/uL (0.0-1.1) Eosinophils # (Auto) 0.1 x10^3/uL (0.0-0.7) Basophils # (Auto) 0.0 x10^3/uL (0.0-0.2) Heparin Anti-Xa Act, Unfractionated 0.78 IU/mL (0.30-0.70) Sodium Level 135 mmol/L (136-145) Potassium Level 3.6 mmol/L (3.5-5.1) Chloride Level 100 mmol/L (98-107) Carbon Dioxide Level 23 mmol/L (21-32) Anion Gap 12 (6-14) Blood Urea Nitrogen 12 mg/dL (8-26) Creatinine 1.4 mg/dL (0.7-1.3) Estimated GFR (Cockcroft-Gault) 68.6 BUN/Creatinine Ratio 9 (6-20) Glucose Level 344 mg/dL (70-99) Calcium Level 8.3 mg/dL (8.5-10.1) Total Bilirubin 0.5 mg/dL (0.2-1.0) Aspartate Amino Transf (AST/SGOT) 14 U/L (15-37) Alanine Aminotransferase (ALT/SGPT) 23 U/L (16-63) Alkaline Phosphatase 88 U/L (46-116) Total Protein 6.8 g/dL (6.4-8.2) Albumin 2.6 g/dL (3.4-5.0) Albumin/Globulin Ratio 0.6 (1.0-1.7) Laboratory Tests Test 02/24/19 16:20 02/24/19 17:20 02/24/19 19:00 02/24/19 20:10 White Blood Count 9.4 x10^3/uL (4.0-11.0) Red Blood Count 5.29 x10^6/uL (4.30-5.70) Hemoglobin 15.8 g/dL (13.0-17.5) Hematocrit 47.2 % (39.0-53.0) Mean Corpuscular Volume 89 fL (79-100) Mean Corpuscular Hemoglobin 30 pg (25-35) Mean Corpuscular Hemoglobin Concent 33 g/dL (31-37) Red Cell Distribution Width 13.7 % (11.5-14.5) Platelet Count 173 x10^3/uL (140-400) Neutrophils (%) (Auto) 71 % (31-73) Lymphocytes (%) (Auto) 21 % (24-48) Monocytes (%) (Auto) 7 % (0-9) Eosinophils (%) (Auto) 1 % (0-3) Basophils (%) (Auto) 1 % (0-3) Neutrophils # (Auto) 6.7 x10^3uL (1.8-7.7) Lymphocytes # (Auto) 1.9 x10^3/uL (1.0-4.8) Monocytes # (Auto) 0.7 x10^3/uL (0.0-1.1) Eosinophils # (Auto) 0.1 x10^3/uL (0.0-0.7) Basophils # (Auto) 0.0 x10^3/uL (0.0-0.2) Prothrombin Time 14.5 SEC (11.7-14.0) Prothromb Time International Ratio 1.2 (0.8-1.1) D-Dimer (Emily) 6.09 ug/mlFEU (0.00-0.50) Sodium Level 130 mmol/L (136-145) Potassium Level 4.3 mmol/L (3.5-5.1) Chloride Level 93 mmol/L (98-107) Carbon Dioxide Level 20 mmol/L (21-32) Anion Gap 17 (6-14) Blood Urea Nitrogen 20 mg/dL (8-26) Creatinine 1.8 mg/dL (0.7-1.3) Estimated GFR (Cockcroft-Gault) 51.4 BUN/Creatinine Ratio 11 (6-20) Glucose Level 517 mg/dL (70-99) Calcium Level 9.4 mg/dL (8.5-10.1) Magnesium Level 1.8 mg/dL (1.8-2.4) Total Bilirubin 0.7 mg/dL (0.2-1.0) Aspartate Amino Transf (AST/SGOT) 15 U/L (15-37) Alanine Aminotransferase (ALT/SGPT) 26 U/L (16-63) Alkaline Phosphatase 106 U/L (46-116) Creatine Kinase 152 U/L (39-308) Creatine Kinase MB (Mass) 1.1 ng/mL (0.0-3.6) Creatine Kinase MB Relative Index 0.7 % (0-4) Troponin I Quantitative 0.196 ng/mL (0.000-0.055) QJ-Qxq-Z-Type Natriuretic Peptide 592 pg/mL (0-124) Total Protein 8.4 g/dL (6.4-8.2) Albumin 3.3 g/dL (3.4-5.0) Albumin/Globulin Ratio 0.6 (1.0-1.7) Lipase 166 U/L (73-393) Thyroid Stimulating Hormone (TSH) 1.571 uIU/mL (0.358-3.74) Urine Collection Type Unknown Urine Color Yellow Urine Clarity Clear Urine pH 5.0 Urine Specific [place] >=1.030 Urine Protein 30 mg/dL (NEG-TRACE) Urine Glucose (UA) >=1000 mg/dL (NEG) Urine Ketones (Stick) 40 mg/dL (NEG) Urine Blood Negative (NEG) Urine Nitrite Positive (NEG) Urine Bilirubin Negative (NEG) Urine Urobilinogen Dipstick 0.2 mg/dL (0.2 mg/dL) Urine Leukocyte Esterase Negative (NEG) Urine RBC 0 /HPF (0-2) Urine WBC 20-40 /HPF (0-4) Urine Squamous Epithelial Cells Few /LPF Urine Bacteria Moderate /HPF (0-FEW) Urine Hyaline Casts Few /HPF Urine Mucus Mod /LPF Urine Opiates Screen Neg (NEG) Urine Methadone Screen Neg (NEG) Urine Barbiturates Neg (NEG) Urine Phencyclidine Screen Neg (NEG) Urine Amphetamine/Methamphetamine Neg (NEG) Urine Benzodiazepines Screen Neg (NEG) Urine Cocaine Screen Neg (NEG) Urine Cannabinoids Screen Neg (NEG) Urine Ethyl Alcohol Neg (NEG) Glucose (Fingerstick) 313 mg/dL (70-99) Test 02/24/19 21:40 02/24/19 21:45 02/24/19 23:02 02/25/19 00:11 Sodium Level 138 mmol/L (136-145) Potassium Level 4.1 mmol/L (3.5-5.1) Chloride Level 100 mmol/L (98-107) Carbon Dioxide Level 22 mmol/L (21-32) Anion Gap 16 (6-14) Blood Urea Nitrogen 20 mg/dL (8-26) Creatinine 1.5 mg/dL (0.7-1.3) Estimated GFR (Cockcroft-Gault) 63.4 Glucose Level 328 mg/dL (70-99) Calcium Level 8.7 mg/dL (8.5-10.1) Phosphorus Level 3.5 mg/dL (2.6-4.7) Magnesium Level 1.8 mg/dL (1.8-2.4) Troponin I Quantitative 0.374 ng/mL (0.000-0.055) Glucose (Fingerstick) 286 mg/dL (70-99) 301 mg/dL (70-99) 279 mg/dL (70-99) Test 02/25/19 01:14 02/25/19 01:40 02/25/19 02:21 02/25/19 03:39 Glucose (Fingerstick) 230 mg/dL (70-99) 178 mg/dL (70-99) 154 mg/dL (70-99) Heparin Anti-Xa Act, Unfractionated 0.10 IU/mL (0.30-0.70) Sodium Level 139 mmol/L (136-145) Potassium Level 3.6 mmol/L (3.5-5.1) Chloride Level 103 mmol/L (98-107) Carbon Dioxide Level 24 mmol/L (21-32) Anion Gap 12 (6-14) Blood Urea Nitrogen 14 mg/dL (8-26) Creatinine 1.4 mg/dL (0.7-1.3) Estimated GFR (Cockcroft-Gault) 68.6 Glucose Level 234 mg/dL (70-99) Calcium Level 8.7 mg/dL (8.5-10.1) Test 02/25/19 08:14 02/25/19 10:32 02/25/19 11:13 Glucose (Fingerstick) 229 mg/dL (70-99) 324 mg/dL (70-99) White Blood Count 10.6 x10^3/uL (4.0-11.0) Red Blood Count 4.49 x10^6/uL (4.30-5.70) Hemoglobin 13.4 g/dL (13.0-17.5) Hematocrit 40.0 % (39.0-53.0) Mean Corpuscular Volume 89 fL (79-100) Mean Corpuscular Hemoglobin 30 pg (25-35) Mean Corpuscular Hemoglobin Concent 33 g/dL (31-37) Red Cell Distribution Width 13.4 % (11.5-14.5) Platelet Count 160 x10^3/uL (140-400) Neutrophils (%) (Auto) 66 % (31-73) Lymphocytes (%) (Auto) 26 % (24-48) Monocytes (%) (Auto) 7 % (0-9) Eosinophils (%) (Auto) 1 % (0-3) Basophils (%) (Auto) 0 % (0-3) Neutrophils # (Auto) 6.9 x10^3uL (1.8-7.7) Lymphocytes # (Auto) 2.8 x10^3/uL (1.0-4.8) Monocytes # (Auto) 0.7 x10^3/uL (0.0-1.1) Eosinophils # (Auto) 0.1 x10^3/uL (0.0-0.7) Basophils # (Auto) 0.0 x10^3/uL (0.0-0.2) Heparin Anti-Xa Act, Unfractionated 0.78 IU/mL (0.30-0.70) Sodium Level 135 mmol/L (136-145) Potassium Level 3.6 mmol/L (3.5-5.1) Chloride Level 100 mmol/L (98-107) Carbon Dioxide Level 23 mmol/L (21-32) Anion Gap 12 (6-14) Blood Urea Nitrogen 12 mg/dL (8-26) Creatinine 1.4 mg/dL (0.7-1.3) Estimated GFR (Cockcroft-Gault) 68.6 BUN/Creatinine Ratio 9 (6-20) Glucose Level 344 mg/dL (70-99) Calcium Level 8.3 mg/dL (8.5-10.1) Total Bilirubin 0.5 mg/dL (0.2-1.0) Aspartate Amino Transf (AST/SGOT) 14 U/L (15-37) Alanine Aminotransferase (ALT/SGPT) 23 U/L (16-63) Alkaline Phosphatase 88 U/L (46-116) Total Protein 6.8 g/dL (6.4-8.2) Albumin 2.6 g/dL (3.4-5.0) Albumin/Globulin Ratio 0.6 (1.0-1.7) Medications Active Scripts Medications Dose Route/Sig Max Daily Dose Days Date Category Glyburide 5 Mg Tablet 5 Mg PO BIDWMEALS MDD 1 10/13/18 Rx Lantus Solostar (Insulin Glargine,Hum.rec.anlog) 100 Unit/1 Ml Insuln.pen 25 Units SQ QHS MDD 1 30 10/13/18 Rx [Pantoprazole] 40 MG Tablet.dr 40 Mg PO DAILYAC MDD 1 10/13/18 Rx Aspirin Ec (Aspirin) 325 Mg Tablet.dr 325 Mg PO DAILYWBKFT MDD 1 10/13/18 Rx Lisinopril 5 Mg Tablet 2.5 Mg PO DAILY MDD 1 10/13/18 Rx Metoprolol Tartrate 25 Mg Tablet 25 Mg PO DAILY MDD 1 10/13/18 Rx Atorvastatin Calcium 40 Mg Tablet 40 Mg PO QHS MDD 1 10/13/18 Rx Clopidogrel (Clopidogrel Bisulfate) 75 Mg Tablet 75 Mg PO DAILYWBKFT MDD 1 10/13/18 Rx No Known Medications Prior To Admisstion (Info) Each 1 Each DAILY 09/04/16 Reported Impression . NOTE DICTATED THANKS PE/DVT SEE ORDERS OUTPT HYPERCOAGULATION STUDIES MURALI GOMES MD Feb 25, 2019 11:43
[2019-02-25] MEDS: HEPARIN 25,000UTS/500ML PREMIX 500 ML IV PRN (12:40)
[2019-02-25] MEDS: ATORVASTATIN CALCIUM 40 MG TABLET. PO SCH (20:34)
[2019-02-25] MEDS: cefTRIAXone IV Push 2 GM VIAL. IVP SCH (22:45)
[2019-02-26] VITALS (18 sets, daily range): BP systolic 92–138; BP diastolic 61–86
--- NOTE | 2019-02-26 03:37 | CONS ---
DATE OF CONSULTATION: 02/25/2019 ATTENDING PHYSICIAN: Dr. Nevaeh Sutton. REASON FOR CONSULTATION: The patient seen in pulmonary consultation at the request of Dr. Sutton for DVT, PE. HISTORY OF PRESENT ILLNESS: The patient is a 39-year-old male with a history of prior DVT approximately 5 years ago, was treated with Coumadin for 1-1/2 years. The patient does not recall any specific etiology for the DVT. He presents now with a 3-day history of increasing shortness of breath, syncope, some diaphoresis. He initially felt that this was related to myocardial infarction. He has had previous myocardial infarction and coronary artery disease. He presented with the above symptoms. He was evaluated in the Emergency Room. He underwent CT angiogram, which I reviewed. There are bilateral pulmonary emboli with a saddle emboli. He also had mild right ventricular enlargement and displacement of the septum suggestive of right heart strain. The patient is currently being treated for the above. He is in the intensive care unit. He is feeling better. He is receiving heparin. He is currently on 5 liters of oxygen supplementation. The patient denies any recent travel or trauma to his lower extremities. He thinks there is a family history of possible thrombophilia. He is a cvjs-ep-epvy dad. He is pretty active. Yesterday, he attempted at mowing the lawn. PAST MEDICAL HISTORY: 1. History of deep venous thrombosis and pulmonary embolism 5 years ago. This was unprovoked. He was treated with Coumadin for 1-1/2 years. 2. Type 2 diabetes. 3. Hypertension. 4. Morbid obesity, body mass index of 51. 5. Hyperlipidemia. 6. Obstructive sleep apnea, utilizing CPAP at home. 7. Coronary artery disease with previous myocardial infarction. 8. Hypertension. PAST SURGICAL HISTORY: No recent major surgeries. FAMILY HISTORY: Possible thrombophilia. SOCIAL HISTORY: He denies any alcohol or tobacco. REVIEW OF SYSTEMS: As indicated in the history of present illness, otherwise 10-point system was reviewed and negative. PHYSICAL EXAMINATION: GENERAL: Morbid obese individual in no respiratory distress. VITAL SIGNS: Have been stable. HEENT: Eyes, the sclerae were nonicteric. NECK: Jugular venous distention could not be assessed secondary to body habitus. No lymphadenopathy. CHEST: Full expansion. LUNGS: Adequate airway flow with no wheezes. CARDIOVASCULAR: Distant heart sounds with S1, S2, no S3. ABDOMEN: Obese. EXTREMITIES: No significant edema or erythema. NEUROLOGIC: The patient was awake, alert, following commands. A detailed neuro exam was not performed. LABORATORY DATA: Reviewed. White count was 10,000, hemoglobin and hematocrit were noted. Toxicology screen was negative. UA was noted. D-dimer was elevated. INR was 1.2. Electrolytes were noted. BUN and creatinine were noted. IMPRESSION: 1. Acute hypoxemic respiratory failure. 2. Acute pulmonary embolism, deep vein thrombosis, nonprovoked, second occurrence. 3. Right heart strain secondary to acute pulmonary embolism. 4. Elevated troponin secondary to above. 5. Morbid obesity. 6. Obstructive sleep apnea. 7. Type 2 diabetes. 8. Coronary artery disease with previous myocardial infarction. PLAN: 1. The patient has remained hemodynamically stable. No need for TPA at this time. 2. Bed rest. 3. Continue heparin. 4. Home CPAP unit. 5. Cardiology has been consulted. 6. The patient will require lifetime anticoagulation considering his BMI. He is not a candidate for the novel agents. I do appreciate the privilege in sharing in the patient's care. Total cumulative critical care time of 45 minutes. MURALI GOMES MD DR: BUSHRA/teodora JOB#: [id number] / [id number]
[2019-02-26 06:15] LABS: HEMATOCRIT 40.3 % (39.0-53.0); HEMOGLOBIN 13.4 g/dL (13.0-17.5); RED BLOOD COUNT 4.55 x10^6/uL (4.30-5.70); RED CELL DISTRIBUTION WIDTH 13.7 % (11.5-14.5); WHITE BLOOD COUNT 6.1 x10^3/uL (4.0-11.0)
[2019-02-26] MEDS: HEPARIN 25,000UTS/500ML PREMIX 500 ML IV PRN ×2 (06:51→21:32)
[2019-02-26] MEDS: glyBURIDE 5 MG TABLET PO SCH (08:19)
[2019-02-26] MEDS: ASPIRIN ENTERIC COATED 325 MG TABLET.DR. PO SCH (08:19)
[2019-02-26] MEDS: LISINOPRIL 5 MG TABLET. PO SCH (08:20)
[2019-02-26] MEDS: POTASSIUM CHLORIDE 20 MEQ TABLET.ER. PO SCH (08:20)
[2019-02-26] MEDS: PANTOPRAZOLE 40 MG TABLET.DR. PO SCH (08:21)
[2019-02-26] MEDS: CLOPIDOGREL BISULFATE 75 MG TABLET PO SCH (08:21)
[2019-02-26] MEDS: LACTOBACILLUS RHAMNOSUS GG 1 CAPSULE. PO SCH ×2 (08:21→21:15)
[2019-02-26] MEDS: METOPROLOL TART IMMED RELEASE 25 MG TABLET. PO SCH (08:21)
[2019-02-26] MEDS: INSULIN LISPRO 300 UNITS/3 ML INSULN.PEN. SQ SCH ×5 (08:24→17:27)
[2019-02-26 09:35] LABS: CALCIUM 8.5 mg/dL (8.5-10.1); CREATININE 1.3 mg/dL (0.7-1.3); GFR 74.8; POTASSIUM 3.6 mmol/L (3.5-5.1)
[2019-02-26] MEDS: ANTI-COAG MONITOR BY PHARMACY. MC PRN ×2 (09:52→12:12)
--- NOTE | 2019-02-26 10:01 | PDOC ---
PROGRESS NOTES Chief Complaint Chief Complaint Saddle PE History DVT and PE in the past - supposed to be on warfarin-lifetime acute hypoxic respiratory failure sec to saddle PE HONK-DM type II - hgba1c 11 in 2018 Morbid obesity BMI 52 ARF UTI, SIRS, - History of Present Illness History of Present Illness heparin gtt running Echo ordered not yet done - cards also consulted Pulmonary also consulted So far maintaining O2 sats just on nasal cannula, seen in ICU No chest pain, no increase in SOA Gap closed last night His insulin regimen is 25 units daily at bedtime and OHA - and blood sugars are still in the 300s He follows with Dr. 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 - saddle pe PLAN: Further INcrease Lantus 25 units to 35 units daily at bedtime DC glyburide with mealtimes and start NovoLog 10 3 times a day Recheck G4d-dpp A1c was 11 in 2018 Keep heparin drip, keep in ICU Echocardiogram still yet to be done On IV Rocephin because of uti, culture still pending Vitals Vitals Vital Signs Date Time Temp Pulse Resp B/P (MAP) Pulse Ox O2 Delivery O2 Flow Rate FiO2 02/26/19 08:21 79 100/61 02/26/19 08:00 20 98 Nasal Cannula 2.0 02/26/19 07:00 97.8 97.8 Physical Exam General: Alert, Oriented X3 Heart: Regular rate, Normal S1, Normal S2, Other (tachycardia 90s to 100s) Lungs: Clear, Other Abdomen: Soft, No tenderness Extremities: No edema Skin: No rashes, No significant lesion Labs LABS Laboratory Tests Test 02/25/19 10:32 02/25/19 11:13 02/25/19 17:20 02/25/19 19:10 White Blood Count 10.6 x10^3/uL (4.0-11.0) Red Blood Count 4.49 x10^6/uL (4.30-5.70) Hemoglobin 13.4 g/dL (13.0-17.5) Hematocrit 40.0 % (39.0-53.0) Mean Corpuscular Volume 89 fL (79-100) Mean Corpuscular Hemoglobin 30 pg (25-35) Mean Corpuscular Hemoglobin Concent 33 g/dL (31-37) Red Cell Distribution Width 13.4 % (11.5-14.5) Platelet Count 160 x10^3/uL (140-400) Neutrophils (%) (Auto) 66 % (31-73) Lymphocytes (%) (Auto) 26 % (24-48) Monocytes (%) (Auto) 7 % (0-9) Eosinophils (%) (Auto) 1 % (0-3) Basophils (%) (Auto) 0 % (0-3) Neutrophils # (Auto) 6.9 x10^3uL (1.8-7.7) Lymphocytes # (Auto) 2.8 x10^3/uL (1.0-4.8) Monocytes # (Auto) 0.7 x10^3/uL (0.0-1.1) Eosinophils # (Auto) 0.1 x10^3/uL (0.0-0.7) Basophils # (Auto) 0.0 x10^3/uL (0.0-0.2) Heparin Anti-Xa Act, Unfractionated 0.78 IU/mL (0.30-0.70) 0.48 IU/mL (0.30-0.70) Sodium Level 135 mmol/L (136-145) Potassium Level 3.6 mmol/L (3.5-5.1) Chloride Level 100 mmol/L (98-107) Carbon Dioxide Level 23 mmol/L (21-32) Anion Gap 12 (6-14) Blood Urea Nitrogen 12 mg/dL (8-26) Creatinine 1.4 mg/dL (0.7-1.3) Estimated GFR (Cockcroft-Gault) 68.6 BUN/Creatinine Ratio 9 (6-20) Glucose Level 344 mg/dL (70-99) Calcium Level 8.3 mg/dL (8.5-10.1) Total Bilirubin 0.5 mg/dL (0.2-1.0) Aspartate Amino Transf (AST/SGOT) 14 U/L (15-37) Alanine Aminotransferase (ALT/SGPT) 23 U/L (16-63) Alkaline Phosphatase 88 U/L (46-116) Total Protein 6.8 g/dL (6.4-8.2) Albumin 2.6 g/dL (3.4-5.0) Albumin/Globulin Ratio 0.6 (1.0-1.7) Glucose (Fingerstick) 324 mg/dL (70-99) 225 mg/dL (70-99) Troponin I Quantitative 0.089 ng/mL (0.000-0.055) Test 02/25/19 20:36 02/26/19 01:15 02/26/19 05:55 02/26/19 06:00 Glucose (Fingerstick) 271 mg/dL (70-99) Heparin Anti-Xa Act, Unfractionated 0.39 IU/mL (0.30-0.70) 0.46 IU/mL (0.30-0.70) White Blood Count 6.1 x10^3/uL (4.0-11.0) Red Blood Count 4.55 x10^6/uL (4.30-5.70) Hemoglobin 13.4 g/dL (13.0-17.5) Hematocrit 40.3 % (39.0-53.0) Mean Corpuscular Volume 89 fL (79-100) Mean Corpuscular Hemoglobin 30 pg (25-35) Mean Corpuscular Hemoglobin Concent 33 g/dL (31-37) Red Cell Distribution Width 13.7 % (11.5-14.5) Platelet Count 158 x10^3/uL (140-400) Sodium Level 139 mmol/L (136-145) Potassium Level 3.6 mmol/L (3.5-5.1) Chloride Level 103 mmol/L (98-107) Carbon Dioxide Level 25 mmol/L (21-32) Anion Gap 11 (6-14) Blood Urea Nitrogen 10 mg/dL (8-26) Creatinine 1.3 mg/dL (0.7-1.3) Estimated GFR (Cockcroft-Gault) 74.8 Glucose Level 221 mg/dL (70-99) Calcium Level 8.5 mg/dL (8.5-10.1) Test 02/26/19 08:17 Glucose (Fingerstick) 213 mg/dL (70-99) Review of Systems Review of Systems A 14 point ROS was completed with the following noted as positive: Other systems reviewed and negative. \CONSTITUTIONAL: No fever or chills EYES: No recent changes SKIN: No rash or itching CARDIOVASCULAR: No chest pain, syncope, palpitations, or edema RESPIRATORY: No SOB or cough GASTROINTESTINAL: No nausea, vomiting or abdominal pain NEUROLOGICAL: No headaches or weakness ENDOCRINE: No cold or heat intolerance GENITOURINARY: No urgency or frequency of urination MUSCULOSKELETAL: No back pain or joint pain LYMPHATICS: No enlarged lymph nodes PSYCHIATRIC: No anxiety or depression Assessment and Plan Assessmemt and Plan Problems Medical Problems: (1) Acute renal failure Status: Acute (2) Chest pain Status: Acute (3) DKA (diabetic ketoacidoses) Status: Acute (4) NSTEMI (non-ST elevated myocardial infarction) Status: Acute (5) Pulmonary embolism Status: Acute Comment Review of Relevant I have reviewed the following items nataliya (where applicable) has been applied. Labs Laboratory Tests Test 02/24/19 16:20 02/24/19 17:20 02/24/19 19:00 02/24/19 20:10 White Blood Count 9.4 x10^3/uL (4.0-11.0) Red Blood Count 5.29 x10^6/uL (4.30-5.70) Hemoglobin 15.8 g/dL (13.0-17.5) Hematocrit 47.2 % (39.0-53.0) Mean Corpuscular Volume 89 fL (79-100) Mean Corpuscular Hemoglobin 30 pg (25-35) Mean Corpuscular Hemoglobin Concent 33 g/dL (31-37) Red Cell Distribution Width 13.7 % (11.5-14.5) Platelet Count 173 x10^3/uL (140-400) Neutrophils (%) (Auto) 71 % (31-73) Lymphocytes (%) (Auto) 21 % (24-48) Monocytes (%) (Auto) 7 % (0-9) Eosinophils (%) (Auto) 1 % (0-3) Basophils (%) (Auto) 1 % (0-3) Neutrophils # (Auto) 6.7 x10^3uL (1.8-7.7) Lymphocytes # (Auto) 1.9 x10^3/uL (1.0-4.8) Monocytes # (Auto) 0.7 x10^3/uL (0.0-1.1) Eosinophils # (Auto) 0.1 x10^3/uL (0.0-0.7) Basophils # (Auto) 0.0 x10^3/uL (0.0-0.2) Prothrombin Time 14.5 SEC (11.7-14.0) Prothromb Time International Ratio 1.2 (0.8-1.1) D-Dimer (Emily) 6.09 ug/mlFEU (0.00-0.50) Sodium Level 130 mmol/L (136-145) Potassium Level 4.3 mmol/L (3.5-5.1) Chloride Level 93 mmol/L (98-107) Carbon Dioxide Level 20 mmol/L (21-32) Anion Gap 17 (6-14) Blood Urea Nitrogen 20 mg/dL (8-26) Creatinine 1.8 mg/dL (0.7-1.3) Estimated GFR (Cockcroft-Gault) 51.4 BUN/Creatinine Ratio 11 (6-20) Glucose Level 517 mg/dL (70-99) Calcium Level 9.4 mg/dL (8.5-10.1) Magnesium Level 1.8 mg/dL (1.8-2.4) Total Bilirubin 0.7 mg/dL (0.2-1.0) Aspartate Amino Transf (AST/SGOT) 15 U/L (15-37) Alanine Aminotransferase (ALT/SGPT) 26 U/L (16-63) Alkaline Phosphatase 106 U/L (46-116) Creatine Kinase 152 U/L (39-308) Creatine Kinase MB (Mass) 1.1 ng/mL (0.0-3.6) Creatine Kinase MB Relative Index 0.7 % (0-4) Troponin I Quantitative 0.196 ng/mL (0.000-0.055) TV-Gha-H-Type Natriuretic Peptide 592 pg/mL (0-124) Total Protein 8.4 g/dL (6.4-8.2) Albumin 3.3 g/dL (3.4-5.0) Albumin/Globulin Ratio 0.6 (1.0-1.7) Lipase 166 U/L (73-393) Thyroid Stimulating Hormone (TSH) 1.571 uIU/mL (0.358-3.74) Urine Collection Type Unknown Urine Color Yellow Urine Clarity Clear Urine pH 5.0 Urine Specific [place] >=1.030 Urine Protein 30 mg/dL (NEG-TRACE) Urine Glucose (UA) >=1000 mg/dL (NEG) Urine Ketones (Stick) 40 mg/dL (NEG) Urine Blood Negative (NEG) Urine Nitrite Positive (NEG) Urine Bilirubin Negative (NEG) Urine Urobilinogen Dipstick 0.2 mg/dL (0.2 mg/dL) Urine Leukocyte Esterase Negative (NEG) Urine RBC 0 /HPF (0-2) Urine WBC 20-40 /HPF (0-4) Urine Squamous Epithelial Cells Few /LPF Urine Bacteria Moderate /HPF (0-FEW) Urine Hyaline Casts Few /HPF Urine Mucus Mod /LPF Urine Opiates Screen Neg (NEG) Urine Methadone Screen Neg (NEG) Urine Barbiturates Neg (NEG) Urine Phencyclidine Screen Neg (NEG) Urine Amphetamine/Methamphetamine Neg (NEG) Urine Benzodiazepines Screen Neg (NEG) Urine Cocaine Screen Neg (NEG) Urine Cannabinoids Screen Neg (NEG) Urine Ethyl Alcohol Neg (NEG) Glucose (Fingerstick) 313 mg/dL (70-99) Test 02/24/19 21:40 02/24/19 21:45 02/24/19 23:02 02/25/19 00:11 Sodium Level 138 mmol/L (136-145) Potassium Level 4.1 mmol/L (3.5-5.1) Chloride Level 100 mmol/L (98-107) Carbon Dioxide Level 22 mmol/L (21-32) Anion Gap 16 (6-14) Blood Urea Nitrogen 20 mg/dL (8-26) Creatinine 1.5 mg/dL (0.7-1.3) Estimated GFR (Cockcroft-Gault) 63.4 Glucose Level 328 mg/dL (70-99) Calcium Level 8.7 mg/dL (8.5-10.1) Phosphorus Level 3.5 mg/dL (2.6-4.7) Magnesium Level 1.8 mg/dL (1.8-2.4) Troponin I Quantitative 0.374 ng/mL (0.000-0.055) Glucose (Fingerstick) 286 mg/dL (70-99) 301 mg/dL (70-99) 279 mg/dL (70-99) Test 02/25/19 01:14 02/25/19 01:40 02/25/19 02:21 02/25/19 03:39 Glucose (Fingerstick) 230 mg/dL (70-99) 178 mg/dL (70-99) 154 mg/dL (70-99) Heparin Anti-Xa Act, Unfractionated 0.10 IU/mL (0.30-0.70) Sodium Level 139 mmol/L (136-145) Potassium Level 3.6 mmol/L (3.5-5.1) Chloride Level 103 mmol/L (98-107) Carbon Dioxide Level 24 mmol/L (21-32) Anion Gap 12 (6-14) Blood Urea Nitrogen 14 mg/dL (8-26) Creatinine 1.4 mg/dL (0.7-1.3) Estimated GFR (Cockcroft-Gault) 68.6 Glucose Level 234 mg/dL (70-99) Calcium Level 8.7 mg/dL (8.5-10.1) Test 02/25/19 08:14 02/25/19 10:32 02/25/19 11:13 02/25/19 17:20 Glucose (Fingerstick) 229 mg/dL (70-99) 324 mg/dL (70-99) 225 mg/dL (70-99) White Blood Count 10.6 x10^3/uL (4.0-11.0) Red Blood Count 4.49 x10^6/uL (4.30-5.70) Hemoglobin 13.4 g/dL (13.0-17.5) Hematocrit 40.0 % (39.0-53.0) Mean Corpuscular Volume 89 fL (79-100) Mean Corpuscular Hemoglobin 30 pg (25-35) Mean Corpuscular Hemoglobin Concent 33 g/dL (31-37) Red Cell Distribution Width 13.4 % (11.5-14.5) Platelet Count 160 x10^3/uL (140-400) Neutrophils (%) (Auto) 66 % (31-73) Lymphocytes (%) (Auto) 26 % (24-48) Monocytes (%) (Auto) 7 % (0-9) Eosinophils (%) (Auto) 1 % (0-3) Basophils (%) (Auto) 0 % (0-3) Neutrophils # (Auto) 6.9 x10^3uL (1.8-7.7) Lymphocytes # (Auto) 2.8 x10^3/uL (1.0-4.8) Monocytes # (Auto) 0.7 x10^3/uL (0.0-1.1) Eosinophils # (Auto) 0.1 x10^3/uL (0.0-0.7) Basophils # (Auto) 0.0 x10^3/uL (0.0-0.2) Heparin Anti-Xa Act, Unfractionated 0.78 IU/mL (0.30-0.70) Sodium Level 135 mmol/L (136-145) Potassium Level 3.6 mmol/L (3.5-5.1) Chloride Level 100 mmol/L (98-107) Carbon Dioxide Level 23 mmol/L (21-32) Anion Gap 12 (6-14) Blood Urea Nitrogen 12 mg/dL (8-26) Creatinine 1.4 mg/dL (0.7-1.3) Estimated GFR (Cockcroft-Gault) 68.6 BUN/Creatinine Ratio 9 (6-20) Glucose Level 344 mg/dL (70-99) Calcium Level 8.3 mg/dL (8.5-10.1) Total Bilirubin 0.5 mg/dL (0.2-1.0) Aspartate Amino Transf (AST/SGOT) 14 U/L (15-37) Alanine Aminotransferase (ALT/SGPT) 23 U/L (16-63) Alkaline Phosphatase 88 U/L (46-116) Total Protein 6.8 g/dL (6.4-8.2) Albumin 2.6 g/dL (3.4-5.0) Albumin/Globulin Ratio 0.6 (1.0-1.7) Test 02/25/19 19:10 02/25/19 20:36 02/26/19 01:15 02/26/19 05:55 Heparin Anti-Xa Act, Unfractionated 0.48 IU/mL (0.30-0.70) 0.39 IU/mL (0.30-0.70) Troponin I Quantitative 0.089 ng/mL (0.000-0.055) Glucose (Fingerstick) 271 mg/dL (70-99) White Blood Count 6.1 x10^3/uL (4.0-11.0) Red Blood Count 4.55 x10^6/uL (4.30-5.70) Hemoglobin 13.4 g/dL (13.0-17.5) Hematocrit 40.3 % (39.0-53.0) Mean Corpuscular Volume 89 fL (79-100) Mean Corpuscular Hemoglobin 30 pg (25-35) Mean Corpuscular Hemoglobin Concent 33 g/dL (31-37) Red Cell Distribution Width 13.7 % (11.5-14.5) Platelet Count 158 x10^3/uL (140-400) Sodium Level 139 mmol/L (136-145) Potassium Level 3.6 mmol/L (3.5-5.1) Chloride Level 103 mmol/L (98-107) Carbon Dioxide Level 25 mmol/L (21-32) Anion Gap 11 (6-14) Blood Urea Nitrogen 10 mg/dL (8-26) Creatinine 1.3 mg/dL (0.7-1.3) Estimated GFR (Cockcroft-Gault) 74.8 Glucose Level 221 mg/dL (70-99) Calcium Level 8.5 mg/dL (8.5-10.1) Test 02/26/19 06:00 02/26/19 08:17 Heparin Anti-Xa Act, Unfractionated 0.46 IU/mL (0.30-0.70) Glucose (Fingerstick) 213 mg/dL (70-99) Laboratory Tests Test 02/25/19 10:32 02/25/19 11:13 02/25/19 17:20 02/25/19 19:10 White Blood Count 10.6 x10^3/uL (4.0-11.0) Red Blood Count 4.49 x10^6/uL (4.30-5.70) Hemoglobin 13.4 g/dL (13.0-17.5) Hematocrit 40.0 % (39.0-53.0) Mean Corpuscular Volume 89 fL (79-100) Mean Corpuscular Hemoglobin 30 pg (25-35) Mean Corpuscular Hemoglobin Concent 33 g/dL (31-37) Red Cell Distribution Width 13.4 % (11.5-14.5) Platelet Count 160 x10^3/uL (140-400) Neutrophils (%) (Auto) 66 % (31-73) Lymphocytes (%) (Auto) 26 % (24-48) Monocytes (%) (Auto) 7 % (0-9) Eosinophils (%) (Auto) 1 % (0-3) Basophils (%) (Auto) 0 % (0-3) Neutrophils # (Auto) 6.9 x10^3uL (1.8-7.7) Lymphocytes # (Auto) 2.8 x10^3/uL (1.0-4.8) Monocytes # (Auto) 0.7 x10^3/uL (0.0-1.1) Eosinophils # (Auto) 0.1 x10^3/uL (0.0-0.7) Basophils # (Auto) 0.0 x10^3/uL (0.0-0.2) Heparin Anti-Xa Act, Unfractionated 0.78 IU/mL (0.30-0.70) 0.48 IU/mL (0.30-0.70) Sodium Level 135 mmol/L (136-145) Potassium Level 3.6 mmol/L (3.5-5.1) Chloride Level 100 mmol/L (98-107) Carbon Dioxide Level 23 mmol/L (21-32) Anion Gap 12 (6-14) Blood Urea Nitrogen 12 mg/dL (8-26) Creatinine 1.4 mg/dL (0.7-1.3) Estimated GFR (Cockcroft-Gault) 68.6 BUN/Creatinine Ratio 9 (6-20) Glucose Level 344 mg/dL (70-99) Calcium Level 8.3 mg/dL (8.5-10.1) Total Bilirubin 0.5 mg/dL (0.2-1.0) Aspartate Amino Transf (AST/SGOT) 14 U/L (15-37) Alanine Aminotransferase (ALT/SGPT) 23 U/L (16-63) Alkaline Phosphatase 88 U/L (46-116) Total Protein 6.8 g/dL (6.4-8.2) Albumin 2.6 g/dL (3.4-5.0) Albumin/Globulin Ratio 0.6 (1.0-1.7) Glucose (Fingerstick) 324 mg/dL (70-99) 225 mg/dL (70-99) Troponin I Quantitative 0.089 ng/mL (0.000-0.055) Test 02/25/19 20:36 02/26/19 01:15 02/26/19 05:55 02/26/19 06:00 Glucose (Fingerstick) 271 mg/dL (70-99) Heparin Anti-Xa Act, Unfractionated 0.39 IU/mL (0.30-0.70) 0.46 IU/mL (0.30-0.70) White Blood Count 6.1 x10^3/uL (4.0-11.0) Red Blood Count 4.55 x10^6/uL (4.30-5.70) Hemoglobin 13.4 g/dL (13.0-17.5) Hematocrit 40.3 % (39.0-53.0) Mean Corpuscular Volume 89 fL (79-100) Mean Corpuscular Hemoglobin 30 pg (25-35) Mean Corpuscular Hemoglobin Concent 33 g/dL (31-37) Red Cell Distribution Width 13.7 % (11.5-14.5) Platelet Count 158 x10^3/uL (140-400) Sodium Level 139 mmol/L (136-145) Potassium Level 3.6 mmol/L (3.5-5.1) Chloride Level 103 mmol/L (98-107) Carbon Dioxide Level 25 mmol/L (21-32) Anion Gap 11 (6-14) Blood Urea Nitrogen 10 mg/dL (8-26) Creatinine 1.3 mg/dL (0.7-1.3) Estimated GFR (Cockcroft-Gault) 74.8 Glucose Level 221 mg/dL (70-99) Calcium Level 8.5 mg/dL (8.5-10.1) Test 02/26/19 08:17 Glucose (Fingerstick) 213 mg/dL (70-99) Medications Current Medications Aspirin (Stanislaw Aspirin) 325 mg 1X ONCE PO Last administered on 02/24/19at 16:48; Start 02/24/19 at 16:30; Stop 02/24/19 at 16:31; Status DC Nitroglycerin (Nitrostat) 0.4 mg PRN Q5MIN PRN SL CP RATING > 1/10 Last administered on 02/24/19at 16:49; Start 02/24/19 at 16:30; Stop 02/25/19 at 16:29; Status DC Morphine Sulfate (Morphine Sulfate) 4 mg PRN Q15MIN PRN IV/SQ PAIN GREATER THAN 3/10; Start 02/24/19 at 16:30; Stop 02/25/19 at 16:29; Status DC Sodium Chloride 1,000 ml @ 1,000 mls/hr 1X ONCE IV Last administered on 02/24/19at 17:35; Start 02/24/19 at 16:45; Stop 02/24/19 at 17:44; Status DC Insulin Human Regular (HumuLIN R VIAL) 10 unit 1X ONCE IV Last administered on 02/24/19at 18:53; Start 02/24/19 at 18:00; Stop 02/24/19 at 18:03; Status DC Sodium Chloride 1,000 ml @ 1,000 mls/hr 1X ONCE IV Last administered on 02/24/19at 18:53; Start 02/24/19 at 18:00; Stop 02/24/19 at 18:59; Status DC Sodium Bicarbonate (Sodium Bicarb Adult 8.4% Syr) 50 meq 1X ONCE IV Last administered on 02/24/19at 18:50; Start 02/24/19 at 18:00; Stop 02/24/19 at 18:03; Status DC Iohexol (Omnipaque 350 Mg/ml) 90 ml 1X ONCE IV Last administered on 02/24/19at 18:30; Start 02/24/19 at 18:30; Stop 02/24/19 at 18:31; Status DC Info (CONTRAST GIVEN -- Rx MONITORING) 1 each PRN DAILY PRN MC SEE COMMENTS; Start 02/24/19 at 18:30; Stop 02/26/19 at 18:29 Ondansetron HCl (Zofran) 8 mg 1X ONCE IM Last administered on 02/24/19at 18:47; Start 02/24/19 at 18:45; Stop 02/24/19 at 18:46; Status DC Enoxaparin Sodium (Lovenox Per Pharmacy Treatment Dosing) 1 each STAT STAT MC ; Start 02/24/19 at 18:50; Stop 02/24/19 at 18:54; Status DC Enoxaparin Sodium (Lovenox 100mg Syringe) 100 mg 1X ONCE SQ ; Start 02/24/19 at 19:30; Stop 02/24/19 at 19:30; Status DC Enoxaparin Sodium (Lovenox 80mg Syringe) 80 mg 1X ONCE SQ ; Start 02/24/19 at 19:30; Stop 02/24/19 at 19:30; Status DC Heparin Sodium/ Dextrose 500 ml @ 0 mls/hr CONT PRN IV SEE I/O RECORD Last administered on 02/26/19at 06:51; Start 02/24/19 at 19:15 Heparin Sodium (Porcine) (Heparin Sodium) 5,450 unit PRN Q6HRS PRN IV FOR UFH LEVEL LESS THAN 0.2 Last administered on 02/25/19at 04:06; Start 02/24/19 at 19:15 Info (Anti-Coagulation Monitoring By Pharmacy) 1 each PRN DAILY PRN MC SEE COMMENTS Last administered on 02/26/19at 09:52; Start 02/24/19 at 19:15 Ondansetron HCl (Zofran) 4 mg PRN Q8HRS PRN IV NAUSEA/VOMITING; Start 02/24/19 at 19:30; Stop 02/25/19 at 08:08; Status DC Morphine Sulfate (Morphine Sulfate) 4 mg PRN Q2HR PRN IV PAIN; Start 02/24/19 at 19:30; Stop 02/25/19 at 19:29; Status DC Acetaminophen (Tylenol) 650 mg PRN Q4HRS PRN PO FEVER; Start 02/24/19 at 19:30; Stop 02/25/19 at 19:29; Status DC Nitroglycerin (Nitrostat) 0.4 mg PRN Q5MIN PRN SL CHEST PAIN; Start 02/24/19 at 19:30; Stop 02/25/19 at 19:29; Status DC Insulin Human Lispro (HumaLOG) 0-7 UNITS TIDWMEALS SQ ; Start 02/25/19 at 08:00; Stop 02/25/19 at 08:00; Status DC Dextrose (Dextrose 50%-Water Syringe) 12.5 gm PRN Q15MIN PRN IV SEE COMMENTS; Start 02/24/19 at 19:30; Stop 02/25/19 at 07:11; Status DC Sodium Chloride 1,000 ml @ 125 mls/hr 1X ONCE IV Last administered on 02/24/19at 21:50; Start 02/24/19 at 19:30; Stop 02/25/19 at 03:29; Status DC Zolpidem Tartrate (Ambien) 5 mg PRN QHS PRN PO INSOMNIA Last administered on 02/24/19 22:53; Start 02/24/19 at 21:30 Aspirin (Ecotrin) 325 mg DAILYWBKFT PO Last administered on 02/26/19 08:19; Start 02/25/19 at 08:00 Atorvastatin Calcium (Lipitor) 40 mg QHS PO Last administered on 02/25/19 20:34; Start 02/24/19 at 22:00 Clopidogrel Bisulfate (Plavix) 75 mg DAILYWBKFT PO Last administered on 02/26/19 08:21; Start 02/25/19 at 08:00 Metoprolol Tartrate (Lopressor) 25 mg DAILY PO Last administered on 02/26/19 08:21; Start 02/25/19 at 09:00 Lisinopril (Prinivil) 2.5 mg DAILY PO Last administered on 02/26/19 08:20; Start 02/25/19 at 09:00 Pantoprazole Sodium (Protonix) 40 mg DAILYAC PO Last administered on 02/26/19 08:21; Start 02/25/19 at 07:30 Ceftriaxone Sodium (Rocephin) 2 gm Q24H IVP Last administered on 02/25/19 22:45; Start 02/24/19 at 22:00 Insulin Human Regular 150 unit/ Sodium Chloride 151.5 ml @ 0 mls/hr CONT PRN PRN IV PER PROTOCOL Last administered on 02/24/19 23:08; Start 02/24/19 at 21:30; Stop 02/25/19 at 10:59; Status DC Potassium Chloride/Water 100 ml @ 100 mls/hr PRN Q1HR PRN IV SEE COMMENTS Last administered on 02/25/19 08:28; Start 02/24/19 at 21:30; Stop 02/25/19 at 10:59; Status DC Potassium Chloride/Water 100 ml @ 100 mls/hr PRN Q1HR PRN IV SEE COMMENTS; Start 02/24/19 at 21:30; Stop 02/25/19 at 10:59; Status DC Potassium Chloride/Water 100 ml @ 100 mls/hr PRN Q1HR PRN IV SEE COMMENTS; Start 02/24/19 at 21:30; Stop 02/25/19 at 10:59; Status DC Insulin Glargine (Lantus) 35 units QHS SQ Last administered on 02/25/19at 04:05; Start 02/25/19 at 04:00; Stop 02/25/19 at 08:09; Status DC Insulin Human Lispro (HumaLOG) 0-9 UNITS TIDWMEALS SQ Last administered on 02/26/19at 08:24; Start 02/25/19 at 08:00 Dextrose (Dextrose 50%-Water Syringe) 12.5 gm PRN Q15MIN PRN IV SEE COMMENTS; Start 02/25/19 at 03:30 Lactobacillus Rhamnosus (Culturelle) 1 cap BID PO Last administered on 02/26/19at 08:21; Start 02/25/19 at 09:00 Dextrose (Dextrose 50%-Water Syringe) 12.5 gm PRN Q15MIN PRN IV SEE COMMENTS; Start 02/25/19 at 07:45 Ondansetron HCl (Zofran) 4 mg PRN Q6HRS PRN IV NAUSEA/VOMITING; Start 02/25/19 at 08:15 Glyburide (Diabeta) 5 mg BIDWMEALS PO Last administered on 02/26/19at 08:19; Start 02/25/19 at 08:30; Stop 02/26/19 at 08:45; Status DC Insulin Glargine (Lantus) 25 units QHS SQ Last administered on 02/25/19at 20:38; Start 02/25/19 at 21:00; Stop 02/26/19 at 08:45; Status DC Insulin Glargine (Lantus) 20 units 1X STAT SQ Last administered on 02/25/19at 11:17; Start 02/25/19 at 10:58; Stop 02/25/19 at 11:03; Status DC Potassium Chloride (Klor-Con) 40 meq DAILYWBKFT PO Last administered on 02/26/19at 08:20; Start 02/26/19 at 08:00 Insulin Glargine (Lantus) 30 units QHS SQ ; Start 02/26/19 at 21:00 Insulin Human Lispro (HumaLOG) 10 units TIDWMEALS SQ ; Start 02/26/19 at 12:00 Active Scripts Active Glyburide 5 Mg Tablet 5 Mg PO BIDWMEALS MDD 1 Lantus Solostar (Insulin Glargine,Hum.rec.anlog) 100 Unit/1 Ml Insuln.pen 25 Units SQ QHS MDD 1 30 Days [Pantoprazole] 40 MG Tablet.dr 40 Mg PO DAILYAC MDD 1 Aspirin Ec (Aspirin) 325 Mg Tablet.dr 325 Mg PO DAILYWBKFT MDD 1 Lisinopril 5 Mg Tablet 2.5 Mg PO DAILY MDD 1 Metoprolol Tartrate 25 Mg Tablet 25 Mg PO DAILY MDD 1 Atorvastatin Calcium 40 Mg Tablet 40 Mg PO QHS MDD 1 Clopidogrel (Clopidogrel Bisulfate) 75 Mg Tablet 75 Mg PO DAILYWBKFT MDD 1 Reported No Known Medications Prior To Admisstion (Info) Each 1 Each DAILY Vitals/I & O Vital Sign - Last 24 Hours 02/25/19 02/25/19 02/25/19 02/25/19 10:03 11:09 12:00 12:00 Temp 97.9 97.9 Pulse 84 89 100 Resp 21 20 B/P (MAP) 114/72 (86) 114/74 (87) 101/68 (79) Pulse Ox 97 99 97 O2 Delivery Nasal Cannula Nasal Cannula Nasal Cannula Nasal Cannula O2 Flow Rate 5.0 5.0 5.0 5.0 02/25/19 02/25/19 02/25/19 02/25/19 13:00 14:00 15:00 16:00 Temp 98.0 98.0 Pulse 94 101 95 85 Resp 20 20 24 B/P (MAP) 110/74 (86) 117/76 (90) 109/70 (83) 96/69 (78) Pulse Ox 99 95 96 98 O2 Delivery Nasal Cannula Nasal Cannula Nasal Cannula Nasal Cannula O2 Flow Rate 5.0 5.0 5.0 5.0 02/25/19 02/25/19 02/25/19 02/25/19 16:00 17:00 18:00 19:00 Pulse 95 96 95 Resp 28 B/P (MAP) 115/75 (88) 127/83 (98) 118/70 (86) Pulse Ox 96 96 99 O2 Delivery Nasal Cannula Nasal Cannula Nasal Cannula Nasal Cannula O2 Flow Rate 5.0 5.0 5.0 5.0 02/25/19 02/25/19 02/25/19 02/25/19 20:00 20:00 21:00 22:00 Temp 97.5 97.5 Pulse 95 94 88 Resp 28 20 18 B/P (MAP) 118/75 (89) 110/80 (90) 103/61 (75) Pulse Ox 99 96 94 O2 Delivery Nasal Cannula Nasal Cannula Nasal Cannula Nasal Cannula O2 Flow Rate 5.0 5.0 1.0 1.0 02/25/19 02/26/19 02/26/19 02/26/19 23:00 00:00 00:00 01:00 Pulse 88 79 80 Resp B/P (MAP) 96/67 (77) 112/78 (89) 103/70 (81) Pulse Ox 94 96 96 O2 Delivery Nasal Cannula Nasal Cannula Nasal Cannula Nasal Cannula O2 Flow Rate 1.0 1.0 1.0 1.0 02/26/19 02/26/19 02/26/19 02/26/19 02:00 03:00 04:00 04:00 Temp 97.8 97.8 Pulse 79 81 83 Resp 24 B/P (MAP) 119/77 (91) 112/70 (84) 92/63 (73) Pulse Ox 96 100 95 O2 Delivery Nasal Cannula Nasal Cannula Nasal Cannula Nasal Cannula O2 Flow Rate 1.0 1.0 1.0 1.0 02/26/19 02/26/19 02/26/19 02/26/19 05:00 06:00 07:00 07:32 Temp 97.8 97.8 Pulse 83 83 79 Resp B/P (MAP) 105/69 (81) 106/81 (89) 100/61 (74) Pulse Ox 100 94 97 O2 Delivery Nasal Cannula Nasal Cannula Nasal Cannula Nasal Cannula O2 Flow Rate 1.0 1.0 3.0 3.0 02/26/19 02/26/19 02/26/19 08:00 08:20 08:21 Pulse 80 79 79 Resp 20 B/P (MAP) 123/81 (95) 100/61 100/61 Pulse Ox 98 O2 Delivery Nasal Cannula O2 Flow Rate 2.0 Intake and Output 02/25/19 02/25/19 02/26/19 15:00 23:00 07:00 Intake Total 840 ml 852 ml 869 ml Output Total 600 ml Balance 240 ml 852 ml 869 ml TRUMAN YANEZ MD Feb 26, 2019 10:01
--- NOTE | 2019-02-26 11:30 | PDOC ---
PROGRESS NOTES Subjective Subjective Feeling better today with improvement in dyspnea. Denied any chest pain. Objective Objective Vital Signs Date Time Temp Pulse Resp B/P (MAP) Pulse Ox O2 Delivery O2 Flow Rate FiO2 02/26/19 10:00 97 20 102/69 (80) 97 Nasal Cannula 2.0 02/26/19 07:00 97.8 97.8 Intake and Output 02/26/19 07:00 Intake Total 2561 ml Output Total 600 ml Balance 1961 ml Intake Oral 1570 ml IV Total 991 ml Output Urine Total 600 ml # Bowel Movements 1 Physical Exam Abdomen: Soft, No tenderness Heart: Regular rate, Normal S1, Normal S2, Other (tachycardia 90s to 100s) Extremities: No edema General: Alert, Oriented X3 HEENT: Atraumatic, PERRLA Lungs: Clear to auscultation MUSCULOSKELETAL: No deformity, No swelling Neuro: Normal speech Psych/Mental Status: Mood NL Skin: No rashes, No significant lesion Assessment Assessment 1. Acute pulmonary embolism: Continue anticoagulation per pulmonary team 2. Slightly elevated troponin level most probably secondary to right ventricle strain/demand ischemia. 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 This was managed medically without any stent placement. 2-D echo at that time showed LVEF 55-60%. Continue current medical regimen. 3. Hypertension: Controlled 4. Hyperlipidemia: Continue statins 5. Diabetes mellitus type 2: Treated per IM Plan Plan of Care Problems Medical Problems: (1) Acute renal failure Status: Acute (2) Chest pain Status: Acute (3) DKA (diabetic ketoacidoses) Status: Acute (4) NSTEMI (non-ST elevated myocardial infarction) Status: Acute (5) Pulmonary embolism Status: Acute Comment Review of Relevant I have reviewed the following items nataliya (where applicable) has been applied. Labs Laboratory Tests Test 02/25/19 17:20 02/25/19 19:10 02/25/19 20:36 02/26/19 01:15 Glucose (Fingerstick) 225 mg/dL (70-99) 271 mg/dL (70-99) Heparin Anti-Xa Act, Unfractionated 0.48 IU/mL (0.30-0.70) 0.39 IU/mL (0.30-0.70) Troponin I Quantitative 0.089 ng/mL (0.000-0.055) Test 02/26/19 05:55 02/26/19 06:00 02/26/19 08:17 White Blood Count 6.1 x10^3/uL (4.0-11.0) Red Blood Count 4.55 x10^6/uL (4.30-5.70) Hemoglobin 13.4 g/dL (13.0-17.5) Hematocrit 40.3 % (39.0-53.0) Mean Corpuscular Volume 89 fL (79-100) Mean Corpuscular Hemoglobin 30 pg (25-35) Mean Corpuscular Hemoglobin Concent 33 g/dL (31-37) Red Cell Distribution Width 13.7 % (11.5-14.5) Platelet Count 158 x10^3/uL (140-400) Sodium Level 139 mmol/L (136-145) Potassium Level 3.6 mmol/L (3.5-5.1) Chloride Level 103 mmol/L (98-107) Carbon Dioxide Level 25 mmol/L (21-32) Anion Gap 11 (6-14) Blood Urea Nitrogen 10 mg/dL (8-26) Creatinine 1.3 mg/dL (0.7-1.3) Estimated GFR (Cockcroft-Gault) 74.8 Glucose Level 221 mg/dL (70-99) Calcium Level 8.5 mg/dL (8.5-10.1) Heparin Anti-Xa Act, Unfractionated 0.46 IU/mL (0.30-0.70) Glucose (Fingerstick) 213 mg/dL (70-99) Medications Current Medications Insulin Glargine (Lantus) 25 units QHS SQ Last administered on 02/25/19at 20:38; Start 02/25/19 at 21:00; Stop 02/26/19 at 08:45; Status DC Insulin Glargine (Lantus) 30 units QHS SQ ; Start 02/26/19 at 21:00 Insulin Human Lispro (HumaLOG) 10 units TIDWMEALS SQ ; Start 02/26/19 at 12:00 Potassium Chloride (Klor-Con) 40 meq DAILYWBKFT PO Last administered on 02/26/19at 08:20; Start 02/26/19 at 08:00 Vitals/I & O Vital Sign - Last 24 Hours 02/25/19 02/25/19 02/25/19 02/25/19 12:00 12:00 13:00 14:00 Temp 97.9 97.9 Pulse 100 94 101 Resp 20 B/P (MAP) 101/68 (79) 110/74 (86) 117/76 (90) Pulse Ox 97 99 95 O2 Delivery Nasal Cannula Nasal Cannula Nasal Cannula Nasal Cannula O2 Flow Rate 5.0 5.0 5.0 5.0 02/25/19 02/25/19 02/25/19 02/25/19 15:00 16:00 16:00 17:00 Temp 98.0 98.0 Pulse 95 85 95 Resp 24 20 B/P (MAP) 109/70 (83) 96/69 (78) 115/75 (88) Pulse Ox 96 98 96 O2 Delivery Nasal Cannula Nasal Cannula Nasal Cannula Nasal Cannula O2 Flow Rate 5.0 5.0 5.0 5.0 02/25/19 02/25/19 02/25/19 02/25/19 18:00 19:00 20:00 20:00 Temp 97.5 97.5 Pulse 96 95 95 Resp B/P (MAP) 127/83 (98) 118/70 (86) 118/75 (89) Pulse Ox 96 99 99 O2 Delivery Nasal Cannula Nasal Cannula Nasal Cannula Nasal Cannula O2 Flow Rate 5.0 5.0 5.0 5.0 02/25/19 02/25/19 02/25/19 02/26/19 21:00 22:00 23:00 00:00 Pulse 94 88 88 79 Resp 25 B/P (MAP) 110/80 (90) 103/61 (75) 96/67 (77) 112/78 (89) Pulse Ox 96 94 94 96 O2 Delivery Nasal Cannula Nasal Cannula Nasal Cannula Nasal Cannula O2 Flow Rate 1.0 1.0 1.0 1.0 02/26/19 02/26/19 02/26/19 02/26/19 00:00 01:00 02:00 03:00 Pulse 80 79 81 Resp 20 20 B/P (MAP) 103/70 (81) 119/77 (91) 112/70 (84) Pulse Ox 96 96 100 O2 Delivery Nasal Cannula Nasal Cannula Nasal Cannula Nasal Cannula O2 Flow Rate 1.0 1.0 1.0 1.0 02/26/19 02/26/19 02/26/19 02/26/19 04:00 04:00 05:00 06:00 Temp 97.8 97.8 Pulse 83 83 83 Resp 24 24 29 B/P (MAP) 92/63 (73) 105/69 (81) 106/81 (89) Pulse Ox 95 100 94 O2 Delivery Nasal Cannula Nasal Cannula Nasal Cannula Nasal Cannula O2 Flow Rate 1.0 1.0 1.0 1.0 02/26/19 02/26/19 02/26/19 02/26/19 07:00 07:32 08:00 08:20 Temp 97.8 97.8 Pulse 79 80 79 Resp 28 20 B/P (MAP) 100/61 (74) 123/81 (95) 100/61 Pulse Ox 97 98 O2 Delivery Nasal Cannula Nasal Cannula Nasal Cannula O2 Flow Rate 3.0 3.0 2.0 02/26/19 02/26/19 02/26/19 08:21 09:00 10:00 Pulse 79 84 97 Resp 20 20 B/P (MAP) 100/61 112/82 (92) 102/69 (80) Pulse Ox 98 97 O2 Delivery Nasal Cannula Nasal Cannula O2 Flow Rate 2.0 2.0 Intake and Output 02/25/19 02/25/19 02/26/19 15:00 23:00 07:00 Intake Total 840 ml 852 ml 869 ml Output Total 600 ml Balance 240 ml 852 ml 869 ml DOUGLAS GLEASON MD Feb 26, 2019 11:30
[2019-02-26] MEDS ORDERED: WARFARIN 5 MG TABLET. PO ONE (13:00)
--- NOTE | 2019-02-26 13:16 | PDOC ---
PULMONARY PROGRESS NOTES Subjective PT LESS SOA LESS CHEST PAIN Vitals Vital Signs Date Time Temp Pulse Resp B/P (MAP) Pulse Ox O2 Delivery O2 Flow Rate FiO2 02/26/19 13:03 91 20 100/65 (77) 97 Nasal Cannula 2.0 02/26/19 11:00 98.5 98.5 ROS: No Nausea, No Abdominal Pain, No Increase Cough General: Alert Lungs: Clear Cardiovascular: S1, S2 Abdomen: Soft Neuro Exam: Alert Extremities: No Edema Skin: Warm Labs Laboratory Tests Test 02/24/19 16:20 02/24/19 17:20 02/24/19 19:00 02/24/19 20:10 White Blood Count 9.4 x10^3/uL (4.0-11.0) Red Blood Count 5.29 x10^6/uL (4.30-5.70) Hemoglobin 15.8 g/dL (13.0-17.5) Hematocrit 47.2 % (39.0-53.0) Mean Corpuscular Volume 89 fL (79-100) Mean Corpuscular Hemoglobin 30 pg (25-35) Mean Corpuscular Hemoglobin Concent 33 g/dL (31-37) Red Cell Distribution Width 13.7 % (11.5-14.5) Platelet Count 173 x10^3/uL (140-400) Neutrophils (%) (Auto) 71 % (31-73) Lymphocytes (%) (Auto) 21 % (24-48) Monocytes (%) (Auto) 7 % (0-9) Eosinophils (%) (Auto) 1 % (0-3) Basophils (%) (Auto) 1 % (0-3) Neutrophils # (Auto) 6.7 x10^3uL (1.8-7.7) Lymphocytes # (Auto) 1.9 x10^3/uL (1.0-4.8) Monocytes # (Auto) 0.7 x10^3/uL (0.0-1.1) Eosinophils # (Auto) 0.1 x10^3/uL (0.0-0.7) Basophils # (Auto) 0.0 x10^3/uL (0.0-0.2) Prothrombin Time 14.5 SEC (11.7-14.0) Prothromb Time International Ratio 1.2 (0.8-1.1) D-Dimer (Emily) 6.09 ug/mlFEU (0.00-0.50) Sodium Level 130 mmol/L (136-145) Potassium Level 4.3 mmol/L (3.5-5.1) Chloride Level 93 mmol/L (98-107) Carbon Dioxide Level 20 mmol/L (21-32) Anion Gap 17 (6-14) Blood Urea Nitrogen 20 mg/dL (8-26) Creatinine 1.8 mg/dL (0.7-1.3) Estimated GFR (Cockcroft-Gault) 51.4 BUN/Creatinine Ratio 11 (6-20) Glucose Level 517 mg/dL (70-99) Calcium Level 9.4 mg/dL (8.5-10.1) Magnesium Level 1.8 mg/dL (1.8-2.4) Total Bilirubin 0.7 mg/dL (0.2-1.0) Aspartate Amino Transf (AST/SGOT) 15 U/L (15-37) Alanine Aminotransferase (ALT/SGPT) 26 U/L (16-63) Alkaline Phosphatase 106 U/L (46-116) Creatine Kinase 152 U/L (39-308) Creatine Kinase MB (Mass) 1.1 ng/mL (0.0-3.6) Creatine Kinase MB Relative Index 0.7 % (0-4) Troponin I Quantitative 0.196 ng/mL (0.000-0.055) CS-Kvi-[id number]-Type Natriuretic Peptide 592 pg/mL (0-124) Total Protein 8.4 g/dL (6.4-8.2) Albumin 3.3 g/dL (3.4-5.0) Albumin/Globulin Ratio 0.6 (1.0-1.7) Lipase 166 U/L (73-393) Thyroid Stimulating Hormone (TSH) 1.571 uIU/mL (0.358-3.74) Urine Collection Type Unknown Urine Color Yellow Urine Clarity Clear Urine pH 5.0 Urine Specific [place] >=1.030 Urine Protein 30 mg/dL (NEG-TRACE) Urine Glucose (UA) >=1000 mg/dL (NEG) Urine Ketones (Stick) 40 mg/dL (NEG) Urine Blood Negative (NEG) Urine Nitrite Positive (NEG) Urine Bilirubin Negative (NEG) Urine Urobilinogen Dipstick 0.2 mg/dL (0.2 mg/dL) Urine Leukocyte Esterase Negative (NEG) Urine RBC 0 /HPF (0-2) Urine WBC 20-40 /HPF (0-4) Urine Squamous Epithelial Cells Few /LPF Urine Bacteria Moderate /HPF (0-FEW) Urine Hyaline Casts Few /HPF Urine Mucus Mod /LPF Urine Opiates Screen Neg (NEG) Urine Methadone Screen Neg (NEG) Urine Barbiturates Neg (NEG) Urine Phencyclidine Screen Neg (NEG) Urine Amphetamine/Methamphetamine Neg (NEG) Urine Benzodiazepines Screen Neg (NEG) Urine Cocaine Screen Neg (NEG) Urine Cannabinoids Screen Neg (NEG) Urine Ethyl Alcohol Neg (NEG) Glucose (Fingerstick) 313 mg/dL (70-99) Test 02/24/19 21:40 02/24/19 21:45 02/24/19 23:02 02/25/19 00:11 Sodium Level 138 mmol/L (136-145) Potassium Level 4.1 mmol/L (3.5-5.1) Chloride Level 100 mmol/L (98-107) Carbon Dioxide Level 22 mmol/L (21-32) Anion Gap 16 (6-14) Blood Urea Nitrogen 20 mg/dL (8-26) Creatinine 1.5 mg/dL (0.7-1.3) Estimated GFR (Cockcroft-Gault) 63.4 Glucose Level 328 mg/dL (70-99) Calcium Level 8.7 mg/dL (8.5-10.1) Phosphorus Level 3.5 mg/dL (2.6-4.7) Magnesium Level 1.8 mg/dL (1.8-2.4) Troponin I Quantitative 0.374 ng/mL (0.000-0.055) Glucose (Fingerstick) 286 mg/dL (70-99) 301 mg/dL (70-99) 279 mg/dL (70-99) Test 02/25/19 01:14 02/25/19 01:40 02/25/19 02:21 02/25/19 03:39 Glucose (Fingerstick) 230 mg/dL (70-99) 178 mg/dL (70-99) 154 mg/dL (70-99) Heparin Anti-Xa Act, Unfractionated 0.10 IU/mL (0.30-0.70) Sodium Level 139 mmol/L (136-145) Potassium Level 3.6 mmol/L (3.5-5.1) Chloride Level 103 mmol/L (98-107) Carbon Dioxide Level 24 mmol/L (21-32) Anion Gap 12 (6-14) Blood Urea Nitrogen 14 mg/dL (8-26) Creatinine 1.4 mg/dL (0.7-1.3) Estimated GFR (Cockcroft-Gault) 68.6 Glucose Level 234 mg/dL (70-99) Calcium Level 8.7 mg/dL (8.5-10.1) Test 02/25/19 08:14 02/25/19 10:32 02/25/19 11:13 02/25/19 17:20 Glucose (Fingerstick) 229 mg/dL (70-99) 324 mg/dL (70-99) 225 mg/dL (70-99) White Blood Count 10.6 x10^3/uL (4.0-11.0) Red Blood Count 4.49 x10^6/uL (4.30-5.70) Hemoglobin 13.4 g/dL (13.0-17.5) Hematocrit 40.0 % (39.0-53.0) Mean Corpuscular Volume 89 fL (79-100) Mean Corpuscular Hemoglobin 30 pg (25-35) Mean Corpuscular Hemoglobin Concent 33 g/dL (31-37) Red Cell Distribution Width 13.4 % (11.5-14.5) Platelet Count 160 x10^3/uL (140-400) Neutrophils (%) (Auto) 66 % (31-73) Lymphocytes (%) (Auto) 26 % (24-48) Monocytes (%) (Auto) 7 % (0-9) Eosinophils (%) (Auto) 1 % (0-3) Basophils (%) (Auto) 0 % (0-3) Neutrophils # (Auto) 6.9 x10^3uL (1.8-7.7) Lymphocytes # (Auto) 2.8 x10^3/uL (1.0-4.8) Monocytes # (Auto) 0.7 x10^3/uL (0.0-1.1) Eosinophils # (Auto) 0.1 x10^3/uL (0.0-0.7) Basophils # (Auto) 0.0 x10^3/uL (0.0-0.2) Heparin Anti-Xa Act, Unfractionated 0.78 IU/mL (0.30-0.70) Sodium Level 135 mmol/L (136-145) Potassium Level 3.6 mmol/L (3.5-5.1) Chloride Level 100 mmol/L (98-107) Carbon Dioxide Level 23 mmol/L (21-32) Anion Gap 12 (6-14) Blood Urea Nitrogen 12 mg/dL (8-26) Creatinine 1.4 mg/dL (0.7-1.3) Estimated GFR (Cockcroft-Gault) 68.6 BUN/Creatinine Ratio 9 (6-20) Glucose Level 344 mg/dL (70-99) Calcium Level 8.3 mg/dL (8.5-10.1) Total Bilirubin 0.5 mg/dL (0.2-1.0) Aspartate Amino Transf (AST/SGOT) 14 U/L (15-37) Alanine Aminotransferase (ALT/SGPT) 23 U/L (16-63) Alkaline Phosphatase 88 U/L (46-116) Total Protein 6.8 g/dL (6.4-8.2) Albumin 2.6 g/dL (3.4-5.0) Albumin/Globulin Ratio 0.6 (1.0-1.7) Test 02/25/19 19:10 02/25/19 20:36 02/26/19 01:15 02/26/19 05:55 Heparin Anti-Xa Act, Unfractionated 0.48 IU/mL (0.30-0.70) 0.39 IU/mL (0.30-0.70) Troponin I Quantitative 0.089 ng/mL (0.000-0.055) Glucose (Fingerstick) 271 mg/dL (70-99) White Blood Count 6.1 x10^3/uL (4.0-11.0) Red Blood Count 4.55 x10^6/uL (4.30-5.70) Hemoglobin 13.4 g/dL (13.0-17.5) Hematocrit 40.3 % (39.0-53.0) Mean Corpuscular Volume 89 fL (79-100) Mean Corpuscular Hemoglobin 30 pg (25-35) Mean Corpuscular Hemoglobin Concent 33 g/dL (31-37) Red Cell Distribution Width 13.7 % (11.5-14.5) Platelet Count 158 x10^3/uL (140-400) Sodium Level 139 mmol/L (136-145) Potassium Level 3.6 mmol/L (3.5-5.1) Chloride Level 103 mmol/L (98-107) Carbon Dioxide Level 25 mmol/L (21-32) Anion Gap 11 (6-14) Blood Urea Nitrogen 10 mg/dL (8-26) Creatinine 1.3 mg/dL (0.7-1.3) Estimated GFR (Cockcroft-Gault) 74.8 Glucose Level 221 mg/dL (70-99) Calcium Level 8.5 mg/dL (8.5-10.1) Test 02/26/19 06:00 02/26/19 08:17 02/26/19 12:14 Heparin Anti-Xa Act, Unfractionated 0.46 IU/mL (0.30-0.70) Glucose (Fingerstick) 213 mg/dL (70-99) 275 mg/dL (70-99) Laboratory Tests Test 02/25/19 17:20 02/25/19 19:10 02/25/19 20:36 02/26/19 01:15 Glucose (Fingerstick) 225 mg/dL (70-99) 271 mg/dL (70-99) Heparin Anti-Xa Act, Unfractionated 0.48 IU/mL (0.30-0.70) 0.39 IU/mL (0.30-0.70) Troponin I Quantitative 0.089 ng/mL (0.000-0.055) Test 02/26/19 05:55 02/26/19 06:00 02/26/19 08:17 02/26/19 12:14 White Blood Count 6.1 x10^3/uL (4.0-11.0) Red Blood Count 4.55 x10^6/uL (4.30-5.70) Hemoglobin 13.4 g/dL (13.0-17.5) Hematocrit 40.3 % (39.0-53.0) Mean Corpuscular Volume 89 fL (79-100) Mean Corpuscular Hemoglobin 30 pg (25-35) Mean Corpuscular Hemoglobin Concent 33 g/dL (31-37) Red Cell Distribution Width 13.7 % (11.5-14.5) Platelet Count 158 x10^3/uL (140-400) Sodium Level 139 mmol/L (136-145) Potassium Level 3.6 mmol/L (3.5-5.1) Chloride Level 103 mmol/L (98-107) Carbon Dioxide Level 25 mmol/L (21-32) Anion Gap 11 (6-14) Blood Urea Nitrogen 10 mg/dL (8-26) Creatinine 1.3 mg/dL (0.7-1.3) Estimated GFR (Cockcroft-Gault) 74.8 Glucose Level 221 mg/dL (70-99) Calcium Level 8.5 mg/dL (8.5-10.1) Heparin Anti-Xa Act, Unfractionated 0.46 IU/mL (0.30-0.70) Glucose (Fingerstick) 213 mg/dL (70-99) 275 mg/dL (70-99) Medications Active Scripts Medications Dose Route/Sig Max Daily Dose Days Date Category Glyburide 5 Mg Tablet 5 Mg PO BIDWMEALS [facility] 10/13/18 Rx Lantus Solostar (Insulin Glargine,Hum.rec.anlog) 100 Unit/1 Ml Insuln.pen 25 Units SQ QHS [facility] 1 30 10/13/18 Rx [Pantoprazole] 40 MG Tablet.dr 40 Mg PO DAILYAC [facility] 1 10/13/18 Rx Aspirin Ec (Aspirin) 325 Mg Tablet.dr [facility] 10[facility]13[facility]18 Rx Lisinopril 5 Mg Tablet 2.5 Mg PO DAILY [facility] 1 10/13/18 Rx Metoprolol Tartrate 25 Mg Tablet 25 Mg PO DAILY [facility] 1 10/13/18 Rx Atorvastatin Calcium 40 Mg Tablet 40 Mg PO QHS [facility] 1 10/13/18 Rx Clopidogrel (Clopidogrel Bisulfate) 75 Mg Tablet 75 Mg PO DAILYWBKFT [facility] 10/13/18 Rx No Known Medications Prior To Admisstion (Info) Each 1 Each [facility] DAILY 09/04/16 Reported Impression . IMPRESSION: 1. Acute hypoxemic respiratory failure. 2. Acute pulmonary embolism, deep vein thrombosis, unprovoked, second occurrence. 3. Right heart strain secondary to acute pulmonary embolism. 4. Elevated troponin secondary to above. 5. Morbid obesity. 6. Obstructive sleep apnea. 7. Type 2 diabetes. 8. Coronary artery disease with previous myocardial infarction. Plan . TRANSFER OUT OF ICU VENOUS DOPPLER LIFETIME ANTICOUG FOLLOW CARD INPUT HEPARIN/COUMADIN PER PHARM MURALI GOMES MD Feb 26, 2019 13:16
[2019-02-26] MEDS ORDERED: INSULIN GLARGINE 300 UNITS/3 ML INSULN.PEN. SQ SCH (21:00)
[2019-02-26] MEDS: ATORVASTATIN CALCIUM 40 MG TABLET. PO SCH (21:15)
[2019-02-26] MEDS: ZOLPIDEM 5 MG TABLET. PO PRN (21:15)
[2019-02-26] MEDS: cefTRIAXone IV Push 2 GM VIAL. IVP SCH (21:15)
[2019-02-27 00:06] LABS: HEMOGLOBIN A1C 12.5 % (4.8-5.6)
[2019-02-27 03:33] VITALS: BP 116/69
[2019-02-27 06:23] LABS: PROTHROMBIN TIME PATIENT 14.7 SEC (11.7-14.0)
[2019-02-27 06:24] LABS: UNFRACTIONATED HEPARIN TESTING 0.34 IU/mL (0.30-0.70)
[2019-02-27 07:37] VITALS: BP 120/53
--- NOTE | 2019-02-27 08:17 | PDOC ---
PROGRESS NOTES Chief Complaint Chief Complaint Saddle PE Right popliteal DVT History DVT and PE in the past - supposed to be on warfarin-lifetime Acute hypoxic respiratory failure sec to saddle PE HONK-DM type II - hgba1c 11 in 2018 Morbid obesity BMI 52 ARF UTI, SIRS, - History of Present Illness History of Present Illness 39yo M admitted with CP, found with large saddle PE. Heparin gtt running Echo ordered not yet done - cards also consulted So far maintaining O2 sats just on nasal cannula, seen in CVC No chest pain, no increase in SOA Gap closed His insulin regimen is 25 units daily at bedtime and OHA - and blood sugars are still in the 300s Urine culture still pending - looks like e coli, was given empiric rocephin Tachycardic 90s to 100s at rest PLAN: Further Increase Lantus 35 units daily at bedtime and 12U TID with meals lispro A1c 12.5 Keep heparin drip, warfarin daily INR Echocardiogram still yet to be done On IV Rocephin because of uti, culture still pending Vitals Vitals Vital Signs Date Time Temp Pulse Resp B/P (MAP) Pulse Ox O2 Delivery O2 Flow Rate FiO2 02/27/19 07:37 97.9 86 19 120/53 (75) 94 Room Air 97.9 02/26/19 16:49 2.0 Physical Exam General: Alert, Oriented X3 Heart: Regular rate, Normal S1, Normal S2, Other (tachycardia 90s to 100s) Lungs: Clear Abdomen: Soft, No tenderness Extremities: No edema Skin: No rashes, No significant lesion Labs LABS Laboratory Tests Test 02/26/19 12:14 02/26/19 16:52 02/26/19 20:36 02/27/19 05:00 Glucose (Fingerstick) 275 mg/dL (70-99) 168 mg/dL (70-99) 246 mg/dL (70-99) Prothrombin Time 14.7 SEC (11.7-14.0) Prothromb Time International Ratio 1.2 (0.8-1.1) Heparin Anti-Xa Act, Unfractionated 0.34 IU/mL (0.30-0.70) Test 02/27/19 07:08 Glucose (Fingerstick) 227 mg/dL (70-99) Assessment and Plan Assessmemt and Plan Problems Medical Problems: (1) Acute renal failure Status: Acute (2) Chest pain Status: Acute (3) DKA (diabetic ketoacidoses) Status: Acute (4) NSTEMI (non-ST elevated myocardial infarction) Status: Acute (5) Pulmonary embolism Status: Acute Comment Review of Relevant I have reviewed the following items nataliya (where applicable) has been applied. Labs Laboratory Tests Test 02/25/19 10:32 02/25/19 11:13 02/25/19 17:20 02/25/19 18:35 White Blood Count 10.6 x10^3/uL (4.0-11.0) Red Blood Count 4.49 x10^6/uL (4.30-5.70) Hemoglobin 13.4 g/dL (13.0-17.5) Hematocrit 40.0 % (39.0-53.0) Mean Corpuscular Volume 89 fL (79-100) Mean Corpuscular Hemoglobin 30 pg (25-35) Mean Corpuscular Hemoglobin Concent 33 g/dL (31-37) Red Cell Distribution Width 13.4 % (11.5-14.5) Platelet Count 160 x10^3/uL (140-400) Neutrophils (%) (Auto) 66 % (31-73) Lymphocytes (%) (Auto) 26 % (24-48) Monocytes (%) (Auto) 7 % (0-9) Eosinophils (%) (Auto) 1 % (0-3) Basophils (%) (Auto) 0 % (0-3) Neutrophils # (Auto) 6.9 x10^3uL (1.8-7.7) Lymphocytes # (Auto) 2.8 x10^3/uL (1.0-4.8) Monocytes # (Auto) 0.7 x10^3/uL (0.0-1.1) Eosinophils # (Auto) 0.1 x10^3/uL (0.0-0.7) Basophils # (Auto) 0.0 x10^3/uL (0.0-0.2) Heparin Anti-Xa Act, Unfractionated 0.78 IU/mL (0.30-0.70) Sodium Level 135 mmol/L (136-145) Potassium Level 3.6 mmol/L (3.5-5.1) Chloride Level 100 mmol/L (98-107) Carbon Dioxide Level 23 mmol/L (21-32) Anion Gap 12 (6-14) Blood Urea Nitrogen 12 mg/dL (8-26) Creatinine 1.4 mg/dL (0.7-1.3) Estimated GFR (Cockcroft-Gault) 68.6 BUN/Creatinine Ratio 9 (6-20) Glucose Level 344 mg/dL (70-99) Calcium Level 8.3 mg/dL (8.5-10.1) Total Bilirubin 0.5 mg/dL (0.2-1.0) Aspartate Amino Transf (AST/SGOT) 14 U/L (15-37) Alanine Aminotransferase (ALT/SGPT) 23 U/L (16-63) Alkaline Phosphatase 88 U/L (46-116) Total Protein 6.8 g/dL (6.4-8.2) Albumin 2.6 g/dL (3.4-5.0) Albumin/Globulin Ratio 0.6 (1.0-1.7) Glucose (Fingerstick) 324 mg/dL (70-99) 225 mg/dL (70-99) Nasal Screen MRSA (PCR) Negative (Negative) Test 02/25/19 19:10 02/25/19 20:36 02/26/19 01:15 02/26/19 05:55 Heparin Anti-Xa Act, Unfractionated 0.48 IU/mL (0.30-0.70) 0.39 IU/mL (0.30-0.70) Troponin I Quantitative 0.089 ng/mL (0.000-0.055) Glucose (Fingerstick) 271 mg/dL (70-99) White Blood Count 6.1 x10^3/uL (4.0-11.0) Red Blood Count 4.55 x10^6/uL (4.30-5.70) Hemoglobin 13.4 g/dL (13.0-17.5) Hematocrit 40.3 % (39.0-53.0) Mean Corpuscular Volume 89 fL (79-100) Mean Corpuscular Hemoglobin 30 pg (25-35) Mean Corpuscular Hemoglobin Concent 33 g/dL (31-37) Red Cell Distribution Width 13.7 % (11.5-14.5) Platelet Count 158 x10^3/uL (140-400) Sodium Level 139 mmol/L (136-145) Potassium Level 3.6 mmol/L (3.5-5.1) Chloride Level 103 mmol/L (98-107) Carbon Dioxide Level 25 mmol/L (21-32) Anion Gap 11 (6-14) Blood Urea Nitrogen 10 mg/dL (8-26) Creatinine 1.3 mg/dL (0.7-1.3) Estimated GFR (Cockcroft-Gault) 74.8 Glucose Level 221 mg/dL (70-99) Hemoglobin A1c 12.5 % (4.8-5.6) Calcium Level 8.5 mg/dL (8.5-10.1) Test 02/26/19 06:00 02/26/19 08:17 02/26/19 12:14 02/26/19 16:52 Heparin Anti-Xa Act, Unfractionated 0.46 IU/mL (0.30-0.70) Glucose (Fingerstick) 213 mg/dL (70-99) 275 mg/dL (70-99) 168 mg/dL (70-99) Test 02/26/19 20:36 02/27/19 05:00 02/27/19 07:08 Glucose (Fingerstick) 246 mg/dL (70-99) 227 mg/dL (70-99) Prothrombin Time 14.7 SEC (11.7-14.0) Prothromb Time International Ratio 1.2 (0.8-1.1) Heparin Anti-Xa Act, Unfractionated 0.34 IU/mL (0.30-0.70) Laboratory Tests Test 02/26/19 12:14 02/26/19 16:52 02/26/19 20:36 02/27/19 05:00 Glucose (Fingerstick) 275 mg/dL (70-99) 168 mg/dL (70-99) 246 mg/dL (70-99) Prothrombin Time 14.7 SEC (11.7-14.0) Prothromb Time International Ratio 1.2 (0.8-1.1) Heparin Anti-Xa Act, Unfractionated 0.34 IU/mL (0.30-0.70) Test 02/27/19 07:08 Glucose (Fingerstick) 227 mg/dL (70-99) Microbiology 02/24/19 Urine Culture - Preliminary, Resulted 02/24/19 Urine Culture Result 1 (YESICA) - Preliminary, Resulted Medications Current Medications Aspirin (Stanislaw Aspirin) 325 mg 1X ONCE PO Last administered on 02/24/19at 16:48; Start 02/24/19 at 16:30; Stop 02/24/19 at 16:31; Status DC Nitroglycerin (Nitrostat) 0.4 mg PRN Q5MIN PRN SL CP RATING > 1/10 Last administered on 02/24/19at 16:49; Start 02/24/19 at 16:30; Stop 02/25/19 at 16:29; Status DC Morphine Sulfate (Morphine Sulfate) 4 mg PRN Q15MIN PRN IV/SQ PAIN GREATER THAN 3/10; Start 02/24/19 at 16:30; Stop 02/25/19 at 16:29; Status DC Sodium Chloride 1,000 ml @ 1,000 mls/hr 1X ONCE IV Last administered on 02/24/19at 17:35; Start 02/24/19 at 16:45; Stop 02/24/19 at 17:44; Status DC Insulin Human Regular (HumuLIN R VIAL) 10 unit 1X ONCE IV Last administered on 02/24/19at 18:53; Start 02/24/19 at 18:00; Stop 02/24/19 at 18:03; Status DC Sodium Chloride 1,000 ml @ 1,000 mls/hr 1X ONCE IV Last administered on 02/24/19at 18:53; Start 02/24/19 at 18:00; Stop 02/24/19 at 18:59; Status DC Sodium Bicarbonate (Sodium Bicarb Adult 8.4% Syr) 50 meq 1X ONCE IV Last administered on 02/24/19at 18:50; Start 02/24/19 at 18:00; Stop 02/24/19 at 18:03; Status DC Iohexol (Omnipaque 350 Mg/ml) 90 ml 1X ONCE IV Last administered on 02/24/19at 18:30; Start 02/24/19 at 18:30; Stop 02/24/19 at 18:31; Status DC Info (CONTRAST GIVEN -- Rx MONITORING) 1 each PRN DAILY PRN MC SEE COMMENTS; Start 02/24/19 at 18:30; Stop 02/26/19 at 18:29; Status DC Ondansetron HCl (Zofran) 8 mg 1X ONCE IM Last administered on 02/24/19at 18:47; Start 02/24/19 at 18:45; Stop 02/24/19 at 18:46; Status DC Enoxaparin Sodium (Lovenox Per Pharmacy Treatment Dosing) 1 each STAT STAT MC ; Start 02/24/19 at 18:50; Stop 02/24/19 at 18:54; Status DC Enoxaparin Sodium (Lovenox 100mg Syringe) 100 mg 1X ONCE SQ ; Start 02/24/19 at 19:30; Stop 02/24/19 at 19:30; Status DC Enoxaparin Sodium (Lovenox 80mg Syringe) 80 mg 1X ONCE SQ ; Start 02/24/19 at 19:30; Stop 02/24/19 at 19:30; Status DC Heparin Sodium/ Dextrose 500 ml @ 0 mls/hr CONT PRN IV SEE I/O RECORD Last administered on 02/26/19at 21:32; Start 02/24/19 at 19:15 Heparin Sodium (Porcine) (Heparin Sodium) 5,450 unit PRN Q6HRS PRN IV FOR UFH LEVEL LESS THAN 0.2 Last administered on 02/25/19at 04:06; Start 02/24/19 at 19:15 Info (Anti-Coagulation Monitoring By Pharmacy) 1 each PRN DAILY PRN MC SEE COMMENTS Last administered on 02/26/19at 12:12; Start 02/24/19 at 19:15 Ondansetron HCl (Zofran) 4 mg PRN Q8HRS PRN IV NAUSEA/VOMITING; Start 02/24/19 at 19:30; Stop 02/25/19 at 08:08; Status DC Morphine Sulfate (Morphine Sulfate) 4 mg PRN Q2HR PRN IV PAIN; Start 02/24/19 at 19:30; Stop 02/25/19 at 19:29; Status DC Acetaminophen (Tylenol) 650 mg PRN Q4HRS PRN PO FEVER; Start 02/24/19 at 19:30; Stop 02/25/19 at 19:29; Status DC Nitroglycerin (Nitrostat) 0.4 mg PRN Q5MIN PRN SL CHEST PAIN; Start 02/24/19 at 19:30; Stop 02/25/19 at 19:29; Status DC Insulin Human Lispro (HumaLOG) 0-7 UNITS TIDWMEALS SQ ; Start 02/25/19 at 08:00; Stop 02/25/19 at 08:00; Status DC Dextrose (Dextrose 50%-Water Syringe) 12.5 gm PRN Q15MIN PRN IV SEE COMMENTS; Start 02/24/19 at 19:30; Stop 02/25/19 at 07:11; Status DC Sodium Chloride 1,000 ml @ 125 mls/hr 1X ONCE IV Last administered on 02/24/19at 21:50; Start 02/24/19 at 19:30; Stop 02/25/19 at 03:29; Status DC Zolpidem Tartrate (Ambien) 5 mg PRN QHS PRN PO INSOMNIA Last administered on 02/26/19 21:15; Start 02/24/19 at 21:30 Aspirin (Ecotrin) 325 mg DAILYWBKFT PO Last administered on 02/26/19 08:19; Start 02/25/19 at 08:00 Atorvastatin Calcium (Lipitor) 40 mg QHS PO Last administered on 02/26/19 21:15; Start 02/24/19 at 22:00 Clopidogrel Bisulfate (Plavix) 75 mg DAILYWBKFT PO Last administered on 02/26 08:21; Start 02/25/19 at 08:00 Metoprolol Tartrate (Lopressor) 25 mg DAILY PO Last administered on 02/26/19 08:21; Start 02/25/19 at 09:00 Lisinopril (Prinivil) 2.5 mg DAILY PO Last administered on 02/26/19 08:20; Start 02/25/19 at 09:00 Pantoprazole Sodium (Protonix) 40 mg DAILYAC PO Last administered on 02/26/19 08:21; Start 02/25/19 at 07:30 Ceftriaxone Sodium (Rocephin) 2 gm Q24H IVP Last administered on 02/26/19 21:15; Start 02/24/19 at 22:00 Insulin Human Regular 150 unit/ Sodium Chloride 151.5 ml @ 0 mls/hr CONT PRN PRN IV PER PROTOCOL Last administered on 02/24/19at 23:08; Start 02/24/19 at 21:30; Stop 02/25/19 at 10:59; Status DC Potassium Chloride/Water 100 ml @ 100 mls/hr PRN Q1HR PRN IV SEE COMMENTS Last administered on 02/25/19at 08:28; Start 02/24/19 at 21:30; Stop 02/25/19 at 10:59; Status DC Potassium Chloride/Water 100 ml @ 100 mls/hr PRN Q1HR PRN IV SEE COMMENTS; Start 02/24/19 at 21:30; Stop 02/25/19 at 10:59; Status DC Potassium Chloride/Water 100 ml @ 100 mls/hr PRN Q1HR PRN IV SEE COMMENTS; Start 02/24/19 at 21:30; Stop 02/25/19 at 10:59; Status DC Insulin Glargine (Lantus) 35 units QHS SQ Last administered on 02/25/19at 04:05; Start 02/25/19 at 04:00; Stop 02/25/19 at 08:09; Status DC Insulin Human Lispro (HumaLOG) 0-9 UNITS TIDWMEALS SQ Last administered on 02/26/19at 17:26; Start 02/25/19 at 08:00 Dextrose (Dextrose 50%-Water Syringe) 12.5 gm PRN Q15MIN PRN IV SEE COMMENTS; Start 02/25/19 at 03:30 Lactobacillus Rhamnosus (Culturelle) 1 cap BID PO Last administered on 02/26/19at 21:15; Start 02/25/19 at 09:00 Dextrose (Dextrose 50%-Water Syringe) 12.5 gm PRN Q15MIN PRN IV SEE COMMENTS; Start 02/25/19 at 07:45; Status Cancel Ondansetron HCl (Zofran) 4 mg PRN Q6HRS PRN IV NAUSEA/VOMITING; Start 02/25/19 at 08:15 Glyburide (Diabeta) 5 mg BIDWMEALS PO Last administered on 02/26/19at 08:19; Start 02/25/19 at 08:30; Stop 02/26/19 at 08:45; Status DC Insulin Glargine (Lantus) 25 units QHS SQ Last administered on 02/25/19at 20:38; Start 02/25/19 at 21:00; Stop 02/26/19 at 08:45; Status DC Insulin Glargine (Lantus) 20 units 1X STAT SQ Last administered on 02/25/19at 11:17; Start 02/25/19 at 10:58; Stop 02/25/19 at 11:03; Status DC Potassium Chloride (Klor-Con) 40 meq DAILYWBKFT PO Last administered on 02/26/19at 08:20; Start 02/26/19 at 08:00 Insulin Glargine (Lantus) 30 units QHS SQ Last administered on 02/26/19at 21:16; Start 02/26/19 at 21:00 Insulin Human Lispro (HumaLOG) 10 units TIDWMEALS SQ Last administered on 02/26/19at 17:27; Start 02/26/19 at 12:00 Warfarin Sodium (Coumadin Per Pharmacy) 1 each PRN DAILY PRN SEE COMMENTS Last administered on 02/26/19at 12:12; Start 02/26/19 at 11:45 Warfarin Sodium (Coumadin) 10 mg 1X ONCE PO Last administered on 02/26/19at 13:03; Start 02/26/19 at 13:00; Stop 02/26/19 at 13:01; Status DC Active Scripts Active Glyburide 5 Mg Tablet 5 Mg PO BIDWMEALS MDD 1 Lantus Solostar (Insulin Glargine,Hum.rec.anlog) 100 Unit/1 Ml Insuln.pen 25 Units SQ QHS MDD 1 30 Days [Pantoprazole] 40 MG Tablet. 40 Mg PO DAILYAC MDD 1 Aspirin Ec (Aspirin) 325 Mg Tablet. 325 Mg PO DAILYWBKFT MDD 1 Lisinopril 5 Mg Tablet 2.5 Mg PO DAILY MDD 1 Metoprolol Tartrate 25 Mg Tablet 25 Mg PO DAILY MDD 1 Atorvastatin Calcium 40 Mg Tablet 40 Mg PO QHS MDD 1 Clopidogrel (Clopidogrel Bisulfate) 75 Mg Tablet 75 Mg PO DAILYWBKFT MDD 1 Reported No Known Medications Prior To Admisstion (Info) Each 1 Each DAILY Vitals/I & O Vital Sign - Last 24 Hours 02/26/19 02/26/19 02/26/19 02/26/19 08:20 08:21 09:00 10:00 Pulse 79 79 84 97 Resp 20 20 B/P (MAP) 100/61 100/61 112/82 (92) 102/69 (80) Pulse Ox 98 97 O2 Delivery Nasal Cannula Nasal Cannula O2 Flow Rate 2.0 2.0 02/26/19 02/26/19 02/26/19 02/26/19 11:00 12:00 12:00 13:03 Temp 98.5 98.5 Pulse 97 85 91 Resp 20 20 20 B/P (MAP) 106/71 (83) 98/65 (76) 100/65 (77) Pulse Ox 97 97 97 O2 Delivery Nasal Cannula Nasal Cannula Nasal Cannula Nasal Cannula O2 Flow Rate 2.0 2.0 2.0 2.0 02/26/19 02/26/19 02/26/19 02/26/19 14:00 15:00 16:49 19:20 Temp 98.1 98.6 98.1 98.6 Pulse 92 77 90 106 Resp 19 B/P (MAP) 105/66 (79) 125/86 (99) 138/77 (97) Pulse Ox 96 96 97 96 O2 Delivery Nasal Cannula Nasal Cannula Nasal Cannula Room Air O2 Flow Rate 2.0 2.0 2.0 02/26/19 02/26/19 02/27/19 02/27/19 20:29 23:37 03:33 03:38 Temp 98.1 98.1 98.1 98.1 Pulse 97 84 Resp 18 19 B/P (MAP) 111/65 (80) 116/69 (85) Pulse Ox 88 98 98 O2 Delivery Room Air Room Air BiPAP/CPAP 02/27/19 07:37 Temp 97.9 97.9 Pulse 86 Resp 19 B/P (MAP) 120/53 (75) Pulse Ox 94 O2 Delivery Room Air Intake and Output 02/26/19 02/26/19 02/27/19 14:59 22:59 06:59 Intake Total 480 ml 0 ml Output Total 800 ml Balance -320 ml 0 ml TARUN SALGADO MD Feb 27, 2019 08:17
[2019-02-27] MEDS: POTASSIUM CHLORIDE 20 MEQ TABLET.ER. PO SCH (08:33)
[2019-02-27] MEDS: ASPIRIN ENTERIC COATED 325 MG TABLET.DR. PO SCH (08:33)
[2019-02-27] MEDS: PANTOPRAZOLE 40 MG TABLET.DR. PO SCH (08:33)
[2019-02-27] MEDS: LACTOBACILLUS RHAMNOSUS GG 1 CAPSULE. PO SCH ×2 (08:33→21:17)
[2019-02-27] MEDS: METOPROLOL TART IMMED RELEASE 25 MG TABLET. PO SCH (08:34)
[2019-02-27] MEDS: LISINOPRIL 5 MG TABLET. PO SCH (08:34)
[2019-02-27] MEDS: CLOPIDOGREL BISULFATE 75 MG TABLET PO SCH (08:34)
[2019-02-27] MEDS: INSULIN LISPRO 300 UNITS/3 ML INSULN.PEN. SQ SCH ×5 (08:43→17:20)
--- NOTE | 2019-02-27 08:44 | RAD ---
Bilateral lower extremity venous ultrasound, 02/27/2019 History: Bilateral leg swelling Duplex evaluation of the deep veins in the lower extremities was performed including grayscale, color-flow and spectral Doppler analysis. On the left, the femoral and popliteal veins are widely patent. The visualized deep veins in the left calf are unremarkable. On the right, the common femoral and superficial femoral veins are patent. There is occlusive thrombus in the right popliteal vein. Patent posterior tibial and peroneal veins are noted in the right calf. IMPRESSION: 1. Occlusive thrombus in the right popliteal vein. 2. No duplex evidence of deep vein thrombosis in the left lower extremity. Note: The findings were given to the patient's nurse at the time of the exam by the fastener technologist. Electronically signed by: Jg Weiss MD (02/27/2019 8:41 AM) [facility]
--- NOTE | 2019-02-27 09:29 | PDOC ---
PULMONARY PROGRESS NOTES Subjective PT LESS SOA LESS CHEST PAIN Vitals Vital Signs Date Time Temp Pulse Resp B/P (MAP) Pulse Ox O2 Delivery O2 Flow Rate FiO2 02/27/19 08:34 86 120/53 02/27/19 07:37 97.9 19 94 Room Air 97.9 02/26/19 16:49 2.0 ROS: No Nausea, No Abdominal Pain, No Increase Cough General: Alert Lungs: Clear Cardiovascular: S1, S2 Abdomen: Soft Neuro Exam: Alert Extremities: No Edema Skin: Warm Labs Laboratory Tests Test 02/25/19 10:32 02/25/19 11:13 02/25/19 17:20 02/25/19 18:35 White Blood Count 10.6 x10^3/uL (4.0-11.0) Red Blood Count 4.49 x10^6/uL (4.30-5.70) Hemoglobin 13.4 g/dL (13.0-17.5) Hematocrit 40.0 % (39.0-53.0) Mean Corpuscular Volume 89 fL (79-100) Mean Corpuscular Hemoglobin 30 pg (25-35) Mean Corpuscular Hemoglobin Concent 33 g/dL (31-37) Red Cell Distribution Width 13.4 % (11.5-14.5) Platelet Count 160 x10^3/uL (140-400) Neutrophils (%) (Auto) 66 % (31-73) Lymphocytes (%) (Auto) 26 % (24-48) Monocytes (%) (Auto) 7 % (0-9) Eosinophils (%) (Auto) 1 % (0-3) Basophils (%) (Auto) 0 % (0-3) Neutrophils # (Auto) 6.9 x10^3uL (1.8-7.7) Lymphocytes # (Auto) 2.8 x10^3/uL (1.0-4.8) Monocytes # (Auto) 0.7 x10^3/uL (0.0-1.1) Eosinophils # (Auto) 0.1 x10^3/uL (0.0-0.7) Basophils # (Auto) 0.0 x10^3/uL (0.0-0.2) Heparin Anti-Xa Act, Unfractionated 0.78 IU/mL (0.30-0.70) Sodium Level 135 mmol/L (136-145) Potassium Level 3.6 mmol/L (3.5-5.1) Chloride Level 100 mmol/L (98-107) Carbon Dioxide Level 23 mmol/L (21-32) Anion Gap 12 (6-14) Blood Urea Nitrogen 12 mg/dL (8-26) Creatinine 1.4 mg/dL (0.7-1.3) Estimated GFR (Cockcroft-Gault) 68.6 BUN/Creatinine Ratio 9 (6-20) Glucose Level 344 mg/dL (70-99) Calcium Level 8.3 mg/dL (8.5-10.1) Total Bilirubin 0.5 mg/dL (0.2-1.0) Aspartate Amino Transf (AST/SGOT) 14 U/L (15-37) Alanine Aminotransferase (ALT/SGPT) 23 U/L (16-63) Alkaline Phosphatase 88 U/L (46-116) Total Protein 6.8 g/dL (6.4-8.2) Albumin 2.6 g/dL (3.4-5.0) Albumin/Globulin Ratio 0.6 (1.0-1.7) Glucose (Fingerstick) 324 mg/dL (70-99) 225 mg/dL (70-99) Nasal Screen MRSA (PCR) Negative (Negative) Test 02/25/19 19:10 02/25/19 20:36 02/26/19 01:15 02/26/19 05:55 Heparin Anti-Xa Act, Unfractionated 0.48 IU/mL (0.30-0.70) 0.39 IU/mL (0.30-0.70) Troponin I Quantitative 0.089 ng/mL (0.000-0.055) Glucose (Fingerstick) 271 mg/dL (70-99) White Blood Count 6.1 x10^3/uL (4.0-11.0) Red Blood Count 4.55 x10^6/uL (4.30-5.70) Hemoglobin 13.4 g/dL (13.0-17.5) Hematocrit 40.3 % (39.0-53.0) Mean Corpuscular Volume 89 fL (79-100) Mean Corpuscular Hemoglobin 30 pg (25-35) Mean Corpuscular Hemoglobin Concent 33 g/dL (31-37) Red Cell Distribution Width 13.7 % (11.5-14.5) Platelet Count 158 x10^3/uL (140-400) Sodium Level 139 mmol/L (136-145) Potassium Level 3.6 mmol/L (3.5-5.1) Chloride Level 103 mmol/L (98-107) Carbon Dioxide Level 25 mmol/L (21-32) Anion Gap 11 (6-14) Blood Urea Nitrogen 10 mg/dL (8-26) Creatinine 1.3 mg/dL (0.7-1.3) Estimated GFR (Cockcroft-Gault) 74.8 Glucose Level 221 mg/dL (70-99) Hemoglobin A1c 12.5 % (4.8-5.6) Calcium Level 8.5 mg/dL (8.5-10.1) Test 02/26/19 06:00 02/26/19 08:17 02/26/19 12:14 02/26/19 16:52 Heparin Anti-Xa Act, Unfractionated 0.46 IU/mL (0.30-0.70) Glucose (Fingerstick) 213 mg/dL (70-99) 275 mg/dL (70-99) 168 mg/dL (70-99) Test 02/26/19 20:36 02/27/19 05:00 02/27/19 07:08 Glucose (Fingerstick) 246 mg/dL (70-99) 227 mg/dL (70-99) Prothrombin Time 14.7 SEC (11.7-14.0) Prothromb Time International Ratio 1.2 (0.8-1.1) Heparin Anti-Xa Act, Unfractionated 0.34 IU/mL (0.30-0.70) Laboratory Tests Test 02/26/19 12:14 02/26/19 16:52 02/26/19 20:36 02/27/19 05:00 Glucose (Fingerstick) 275 mg/dL (70-99) 168 mg/dL (70-99) 246 mg/dL (70-99) Prothrombin Time 14.7 SEC (11.7-14.0) Prothromb Time International Ratio 1.2 (0.8-1.1) Heparin Anti-Xa Act, Unfractionated 0.34 IU/mL (0.30-0.70) Test 02/27/19 07:08 Glucose (Fingerstick) 227 mg/dL (70-99) Medications Active Scripts Medications Dose Route/Sig Max Daily Dose Days Date Category Glyburide 5 Mg Tablet 5 Mg PO BIDWMEALS MDD 1 10/13/18 Rx Lantus Solostar (Insulin Glargine,Hum.rec.anlog) 100 Unit/1 Ml Insuln.pen 25 Units SQ QHS MDD 1 30 10/13/18 Rx [Pantoprazole] 40 MG Tablet.dr 40 Mg PO DAILYAC MDD 1 10/13/18 Rx Aspirin Ec (Aspirin) 325 Mg Tablet.dr 325 Mg PO DAILYWBKFT MDD 1 10/13/18 Rx Lisinopril 5 Mg Tablet 2.5 Mg PO DAILY MDD 1 10/13/18 Rx Metoprolol Tartrate 25 Mg Tablet 25 Mg PO DAILY MDD 1 10/13/18 Rx Atorvastatin Calcium 40 Mg Tablet 40 Mg PO QHS MDD 1 10/13/18 Rx Clopidogrel (Clopidogrel Bisulfate) 75 Mg Tablet 75 Mg PO DAILYWBKFT [facility] 1 10/13/18 Rx No Known Medications Prior To Admisstion (Info) Each 1 Each DAILY 09/04/16 Reported Impression . IMPRESSION: 1. Acute hypoxemic respiratory failure. 2. Acute pulmonary embolism, deep vein thrombosis, unprovoked, second occurrence. 3. Right heart strain secondary to acute pulmonary embolism. 4. Elevated troponin secondary to above. 5. Morbid obesity. 6. Obstructive sleep apnea. 7. Type 2 diabetes. 8. Coronary artery disease with previous myocardial infarction. VENOUS IMPRESSION: 1. Occlusive thrombus in the right popliteal vein. 2. No duplex evidence of deep vein thrombosis in the left lower extremity. Plan . UP TO CHAIR VENOUS DOPPLER POSITIVE ON RIGHT LIFETIME ANTICOUG FOLLOW CARD INPUT HEPARIN/COUMADIN PER PHARM MURALI GOMES MD Feb 27, 2019 09:29
[2019-02-27] MEDS: ANTI-COAG MONITOR BY PHARMACY. MC PRN (10:06)
[2019-02-27 10:38] VITALS: BP 106/51
[2019-02-27 15:00] VITALS: BP 128/56
[2019-02-27] MEDS ORDERED: WARFARIN 5 MG TABLET. PO ONE (16:00)
[2019-02-27] MEDS: HEPARIN 25,000UTS/500ML PREMIX 500 ML IV PRN (16:05)
[2019-02-27 19:28] VITALS: BP 115/75
[2019-02-27] MEDS ORDERED: LACTOBACILLUS RHAMNOSUS GG 1 CAPSULE. PO SCH (21:00)
--- NOTE | 2019-02-27 21:12 | PDOC ---
PROGRESS NOTES Subjective Subjective Dyspnea improved. Denied any chest pain Objective Objective Vital Signs Date Time Temp Pulse Resp B/P (MAP) Pulse Ox O2 Delivery O2 Flow Rate FiO2 02/27/19 19:28 98.0 95 16 115/75 (88) 95 Room Air 98.0 02/26/19 16:49 2.0 Intake and Output 02/27/19 07:00 Intake Total 480 ml Output Total 800 ml Balance -320 ml Intake Oral 480 ml Output Urine Total 800 ml # Voids 1 # Bowel Movements 1 Physical Exam Abdomen: Soft, No tenderness Heart: Regular rate, Normal S1, Normal S2, Other (tachycardia 90s to 100s) Extremities: No edema General: Alert, Oriented X3 HEENT: Atraumatic, PERRLA Lungs: Clear to auscultation MUSCULOSKELETAL: No deformity, No swelling Neuro: Normal speech Psych/Mental Status: Mood NL Skin: No rashes, No significant lesion Assessment Assessment 1. Acute pulmonary embolism: Symptoms improved. Continue anticoagulation per pulmonary team 2. Slightly elevated troponin level most probably secondary to right ventricle strain/demand ischemia. 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 This was managed medically without any stent placement. 2-D echo at that time showed LVEF 55-60%. Continue current medical regimen. 3. Hypertension: Controlled 4. Hyperlipidemia: Continue statins 5. Diabetes mellitus type 2: Treated per IM Follow up in one month Plan Plan of Care Problems Medical Problems: (1) Acute renal failure Status: Acute (2) Chest pain Status: Acute (3) DKA (diabetic ketoacidoses) Status: Acute (4) NSTEMI (non-ST elevated myocardial infarction) Status: Acute (5) Pulmonary embolism Status: Acute Comment Review of Relevant I have reviewed the following items nataliya (where applicable) has been applied. Labs Laboratory Tests Test 02/27/19 05:00 02/27/19 07:08 02/27/19 11:29 02/27/19 16:39 Prothrombin Time 14.7 SEC (11.7-14.0) Prothromb Time International Ratio 1.2 (0.8-1.1) Heparin Anti-Xa Act, Unfractionated 0.34 IU/mL (0.30-0.70) Glucose (Fingerstick) 227 mg/dL (70-99) 229 mg/dL (70-99) 228 mg/dL (70-99) Test 02/27/19 20:31 Glucose (Fingerstick) 123 mg/dL (70-99) Microbiology 02/24/19 Urine Culture - Final, Complete 02/24/19 Urine Culture Result 1 (YESICA) - Final, Complete 02/24/19 Antimicrobic Susceptibility - Final, Complete Medications Current Medications Insulin Glargine (Lantus) 35 units QHS SQ ; Start 02/27/19 at 21:00 Insulin Human Lispro (HumaLOG) 12 units TIDWMEALS SQ Last administered on 02/27/19at 17:20; Start 02/27/19 at 12:00 Lactobacillus Rhamnosus (Culturelle) 1 cap BID PO ; Start 02/27/19 at 21:00; Stop 02/27/19 at 21:00; Status DC Warfarin Sodium (Coumadin) 10 mg 1X WARF ONCE PO Last administered on 02/27/19at 16:00; Start 02/27/19 at 16:00; Stop 02/27/19 at 16:01; Status DC Vitals/I & O Vital Sign - Last 24 Hours 02/26/19 02/27/19 02/27/19 02/27/19 23:37 03:33 03:38 07:37 Temp 98.1 98.1 97.9 98.1 98.1 97.9 Pulse 97 84 86 Resp 18 19 19 B/P (MAP) 111/65 (80) 116/69 (85) 120/53 (75) Pulse Ox 88 98 98 94 O2 Delivery Room Air BiPAP/CPAP Room Air 02/27/19 02/27/19 02/27/19 02/27/19 08:00 08:34 08:34 10:38 Temp 98.0 98.0 Pulse 86 86 75 Resp 19 B/P (MAP) 120/53 120/53 106/51 (69) Pulse Ox 95 O2 Delivery Room Air Room Air 02/27/19 02/27/19 02/27/19 15:00 19:18 19:28 Temp 98.0 98.0 98.0 98.0 Pulse 88 95 Resp 19 16 B/P (MAP) 128/56 (80) 115/75 (88) Pulse Ox 94 95 O2 Delivery Room Air Room Air Room Air Intake and Output 02/26/19 02/26/19 02/27/19 15:00 23:00 07:00 Intake Total 480 ml 0 ml Output Total 800 ml Balance -320 ml 0 ml DOUGLAS GLEASON MD Feb 27, 2019 21:12
[2019-02-27] MEDS: ATORVASTATIN CALCIUM 40 MG TABLET. PO SCH (21:17)
[2019-02-27] MEDS: INSULIN GLARGINE 300 UNITS/3 ML INSULN.PEN. SQ SCH (21:18)
[2019-02-27] MEDS: cefTRIAXone IV Push 2 GM VIAL. IVP SCH (21:19)
[2019-02-27] MEDS: ZOLPIDEM 5 MG TABLET. PO PRN (21:19)
[2019-02-27 23:30] VITALS: BP 112/71
[2019-02-28 03:35] VITALS: BP 108/63
[2019-02-28 04:42] LABS: PROTHROMBIN TIME PATIENT 15.2 SEC (11.7-14.0)
[2019-02-28 07:00] VITALS: BP 121/77
[2019-02-28] MEDS: POTASSIUM CHLORIDE 20 MEQ TABLET.ER. PO SCH (08:22)
[2019-02-28] MEDS: LACTOBACILLUS RHAMNOSUS GG 1 CAPSULE. PO SCH ×2 (08:22→20:56)
[2019-02-28] MEDS: LISINOPRIL 5 MG TABLET. PO SCH (08:23)
[2019-02-28] MEDS: ASPIRIN ENTERIC COATED 325 MG TABLET.DR. PO SCH (08:23)
[2019-02-28] MEDS: PANTOPRAZOLE 40 MG TABLET.DR. PO SCH (08:24)
[2019-02-28] MEDS: CLOPIDOGREL BISULFATE 75 MG TABLET PO SCH (08:24)
[2019-02-28] MEDS: METOPROLOL TART IMMED RELEASE 25 MG TABLET. PO SCH (08:25)
[2019-02-28] MEDS: INSULIN LISPRO 300 UNITS/3 ML INSULN.PEN. SQ SCH ×6 (08:30→17:00)
--- NOTE | 2019-02-28 09:21 | PDOC ---
PULMONARY PROGRESS NOTES Subjective PT LESS SOA LESS CHEST PAIN Vitals Vital Signs Date Time Temp Pulse Resp B/P (MAP) Pulse Ox O2 Delivery O2 Flow Rate FiO2 02/28/19 08:25 95 121/77 02/28/19 07:00 97.9 16 94 Room Air 97.9 ROS: No Nausea, No Abdominal Pain, No Increase Cough General: Alert Lungs: Clear Cardiovascular: S1, S2 Abdomen: Soft Neuro Exam: Alert Extremities: No Edema Skin: Warm Labs Laboratory Tests Test 02/26/19 12:14 02/26/19 16:52 02/26/19 20:36 02/27/19 05:00 Glucose (Fingerstick) 275 mg/dL (70-99) 168 mg/dL (70-99) 246 mg/dL (70-99) Prothrombin Time 14.7 SEC (11.7-14.0) Prothromb Time International Ratio 1.2 (0.8-1.1) Heparin Anti-Xa Act, Unfractionated 0.34 IU/mL (0.30-0.70) Test 02/27/19 07:08 02/27/19 11:29 02/27/19 16:39 02/27/19 20:31 Glucose (Fingerstick) 227 mg/dL (70-99) 229 mg/dL (70-99) 228 mg/dL (70-99) 123 mg/dL (70-99) Test 02/28/19 03:50 02/28/19 07:39 Prothrombin Time 15.2 SEC (11.7-14.0) Prothromb Time International Ratio 1.2 (0.8-1.1) Heparin Anti-Xa Act, Unfractionated 0.32 IU/mL (0.30-0.70) Glucose (Fingerstick) 212 mg/dL (70-99) Laboratory Tests Test 02/27/19 11:29 02/27/19 16:39 02/27/19 20:31 02/28/19 03:50 Glucose (Fingerstick) 229 mg/dL (70-99) 228 mg/dL (70-99) 123 mg/dL (70-99) Prothrombin Time 15.2 SEC (11.7-14.0) Prothromb Time International Ratio 1.2 (0.8-1.1) Heparin Anti-Xa Act, Unfractionated 0.32 IU/mL (0.30-0.70) Test 02/28/19 07:39 Glucose (Fingerstick) 212 mg/dL (70-99) Medications Active Scripts Medications Dose Route/Sig Max Daily Dose Days Date Category Glyburide 5 Mg Tablet 5 Mg PO BIDWMEALS MDD 1 10/13/18 Rx Lantus Solostar (Insulin Glargine,Hum.rec.anlog) 100 Unit/1 Ml Insuln.pen 25 Units SQ QHS MDD 1 30 10/13/18 Rx [Pantoprazole] 40 MG Tablet.dr 40 Mg PO DAILYAC MDD 1 10/13/18 Rx Aspirin Ec (Aspirin) 325 Mg Tablet.dr 325 Mg PO DAILYWBKFT MDD 10/13/18 Rx Lisinopril 5 Mg Tablet 2.5 Mg PO DAILY MDD 10/13/18 Rx Metoprolol Tartrate 25 Mg Tablet 25 Mg PO DAILY MDD 1 10/13/18 Rx Atorvastatin Calcium 40 Mg Tablet 40 Mg PO QHS MDD 10/13/18 Rx Clopidogrel (Clopidogrel Bisulfate) 75 Mg Tablet 75 Mg PO DAILYWBKFT [facility] 10/13/18 Rx No Known Medications Prior To Admisstion (Info) Each 1 Each DAILY 09/04/16 Reported Impression . IMPRESSION: 1. Acute hypoxemic respiratory failure. 2. Acute pulmonary embolism, deep vein thrombosis, unprovoked, second occurrence. 3. Right heart strain secondary to acute pulmonary embolism. 4. Elevated troponin secondary to above. 5. Morbid obesity. 6. Obstructive sleep apnea. 7. Type 2 diabetes. 8. Coronary artery disease with previous myocardial infarction. VENOUS IMPRESSION: 1. Occlusive thrombus in the right popliteal vein. 2. No duplex evidence of deep vein thrombosis in the left lower extremity. Plan . UP TO CHAIR VENOUS DOPPLER POSITIVE ON RIGHT LIFETIME ANTICOUG FOLLOW CARD INPUT HEPARIN/COUMADIN PER PHARM MURALI GOMES MD Feb 28, 2019 09:21
[2019-02-28 11:00] VITALS: BP 160/61
[2019-02-28] MEDS: HEPARIN 25,000UTS/500ML PREMIX 500 ML IV PRN (12:37)
--- NOTE | 2019-02-28 14:24 | PDOC ---
PROGRESS NOTES Chief Complaint Chief Complaint Saddle PE Right popliteal DVT History DVT and PE in the past - supposed to be on warfarin-lifetime Acute hypoxic respiratory failure sec to saddle PE HONK-DM type II - hgba1c 11 in 2018 Morbid obesity BMI 52 ARF UTI - e coli Sepsis - likely 2/2 UTI History of Present Illness History of Present Illness 39yo M admitted with CP, found with large saddle PE. Heparin gtt running, coumadin with INR 1.2 So far maintaining O2 sats just on nasal cannula, seen in CVC No chest pain, no increase in SOA Gap closed His insulin regimen is 25 units daily at bedtime and OHA - and blood sugars are still in the 300s Urine culture e coli, was given empiric rocephin - can d/c on ceftin when ready Tachycardic 90s to 100s at rest PLAN: Further Increase Lantus 35 units daily at bedtime and 12U TID with meals lispro A1c 12.5 Keep heparin drip, warfarin daily INR Echocardiogram still yet to be done On IV Rocephin Vitals Vitals Vital Signs Date Time Temp Pulse Resp B/P (MAP) Pulse Ox O2 Delivery O2 Flow Rate FiO2 02/28/19 11:00 97.8 83 18 160/61 (94) 93 Room Air 97.8 Physical Exam General: Alert, Oriented X3 Heart: Regular rate, Normal S1, Normal S2, Other (tachycardia 90s to 100s) Lungs: Clear Abdomen: Soft, No tenderness Extremities: No edema Skin: No rashes, No significant lesion Labs LABS Laboratory Tests Test 02/27/19 16:39 02/27/19 20:31 02/28/19 03:50 02/28/19 07:39 Glucose (Fingerstick) 228 mg/dL (70-99) 123 mg/dL (70-99) 212 mg/dL (70-99) Prothrombin Time 15.2 SEC (11.7-14.0) Prothromb Time International Ratio 1.2 (0.8-1.1) Heparin Anti-Xa Act, Unfractionated 0.32 IU/mL (0.30-0.70) Test 02/28/19 11:45 Glucose (Fingerstick) 210 mg/dL (70-99) Assessment and Plan Assessmemt and Plan Problems Medical Problems: (1) Acute renal failure Status: Acute (2) Chest pain Status: Acute (3) DKA (diabetic ketoacidoses) Status: Acute (4) NSTEMI (non-ST elevated myocardial infarction) Status: Acute (5) Pulmonary embolism Status: Acute Comment Review of Relevant I have reviewed the following items nataliya (where applicable) has been applied. Labs Laboratory Tests Test 02/26/19 16:52 02/26/19 20:36 02/27/19 05:00 02/27/19 07:08 Glucose (Fingerstick) 168 mg/dL (70-99) 246 mg/dL (70-99) 227 mg/dL (70-99) Prothrombin Time 14.7 SEC (11.7-14.0) Prothromb Time International Ratio 1.2 (0.8-1.1) Heparin Anti-Xa Act, Unfractionated 0.34 IU/mL (0.30-0.70) Test 02/27/19 11:29 02/27/19 16:39 02/27/19 20:31 02/28/19 03:50 Glucose (Fingerstick) 229 mg/dL (70-99) 228 mg/dL (70-99) 123 mg/dL (70-99) Prothrombin Time 15.2 SEC (11.7-14.0) Prothromb Time International Ratio 1.2 (0.8-1.1) Heparin Anti-Xa Act, Unfractionated 0.32 IU/mL (0.30-0.70) Test 02/28/19 07:39 02/28/19 11:45 Glucose (Fingerstick) 212 mg/dL (70-99) 210 mg/dL (70-99) Laboratory Tests Test 02/27/19 16:39 02/27/19 20:31 02/28/19 03:50 02/28/19 07:39 Glucose (Fingerstick) 228 mg/dL (70-99) 123 mg/dL (70-99) 212 mg/dL (70-99) Prothrombin Time 15.2 SEC (11.7-14.0) Prothromb Time International Ratio 1.2 (0.8-1.1) Heparin Anti-Xa Act, Unfractionated 0.32 IU/mL (0.30-0.70) Test 02/28/19 11:45 Glucose (Fingerstick) 210 mg/dL (70-99) Microbiology 02/24/19 Urine Culture - Final, Complete 02/24/19 Urine Culture Result 1 (YESICA) - Final, Complete 02/24/19 Antimicrobic Susceptibility - Final, Complete Medications Current Medications Aspirin (Stanislaw Aspirin) 325 mg 1X ONCE PO Last administered on 02/24/19at 16:48; Start 02/24/19 at 16:30; Stop 02/24/19 at 16:31; Status DC Nitroglycerin (Nitrostat) 0.4 mg PRN Q5MIN PRN SL CP RATING > 1/10 Last administered on 02/24/19at 16:49; Start 02/24/19 at 16:30; Stop 02/25/19 at 16:29; Status DC Morphine Sulfate (Morphine Sulfate) 4 mg PRN Q15MIN PRN IV/SQ PAIN GREATER THAN 3/10; Start 02/24/19 at 16:30; Stop 02/25/19 at 16:29; Status DC Sodium Chloride 1,000 ml @ 1,000 mls/hr 1X ONCE IV Last administered on 02/24/19at 17:35; Start 02/24/19 at 16:45; Stop 02/24/19 at 17:44; Status DC Insulin Human Regular (HumuLIN R VIAL) 10 unit 1X ONCE IV Last administered on 02/24/19at 18:53; Start 02/24/19 at 18:00; Stop 02/24/19 at 18:03; Status DC Sodium Chloride 1,000 ml @ 1,000 mls/hr 1X ONCE IV Last administered on 02/24/19at 18:53; Start 02/24/19 at 18:00; Stop 02/24/19 at 18:59; Status DC Sodium Bicarbonate (Sodium Bicarb Adult 8.4% Syr) 50 meq 1X ONCE IV Last administered on 02/24/19at 18:50; Start 02/24/19 at 18:00; Stop 02/24/19 at 18:03; Status DC Iohexol (Omnipaque 350 Mg/ml) 90 ml 1X ONCE IV Last administered on 02/24/19at 18:30; Start 02/24/19 at 18:30; Stop 02/24/19 at 18:31; Status DC Info (CONTRAST GIVEN -- Rx MONITORING) 1 each PRN DAILY PRN MC SEE COMMENTS; Start 02/24/19 at 18:30; Stop 02/26/19 at 18:29; Status DC Ondansetron HCl (Zofran) 8 mg 1X ONCE IM Last administered on 02/24/19at 18:47; Start 02/24/19 at 18:45; Stop 02/24/19 at 18:46; Status DC Enoxaparin Sodium (Lovenox Per Pharmacy Treatment Dosing) 1 each STAT STAT MC ; Start 02/24/19 at 18:50; Stop 02/24/19 at 18:54; Status DC Enoxaparin Sodium (Lovenox 100mg Syringe) 100 mg 1X ONCE SQ ; Start 02/24/19 at 19:30; Stop 02/24/19 at 19:30; Status DC Enoxaparin Sodium (Lovenox 80mg Syringe) 80 mg 1X ONCE SQ ; Start 02/24/19 at 19:30; Stop 02/24/19 at 19:30; Status DC Heparin Sodium/ Dextrose 500 ml @ 0 mls/hr CONT PRN IV SEE I/O RECORD Last administered on 02/28/19at 12:37; Start 02/24/19 at 19:15 Heparin Sodium (Porcine) (Heparin Sodium) 5,450 unit PRN Q6HRS PRN IV FOR UFH LEVEL LESS THAN 0.2 Last administered on 02/25/19at 04:06; Start 02/24/19 at 19:15 Info (Anti-Coagulation Monitoring By Pharmacy) 1 each PRN DAILY PRN MC SEE COMMENTS Last administered on 02/27/19at 10:06; Start 02/24/19 at 19:15 Ondansetron HCl (Zofran) 4 mg PRN Q8HRS PRN IV NAUSEA/VOMITING; Start 02/24/19 at 19:30; Stop 02/25/19 at 08:08; Status DC Morphine Sulfate (Morphine Sulfate) 4 mg PRN Q2HR PRN IV PAIN; Start 02/24/19 at 19:30; Stop 02/25/19 at 19:29; Status DC Acetaminophen (Tylenol) 650 mg PRN Q4HRS PRN PO FEVER; Start 02/24/19 at 19:30; Stop 02/25/19 at 19:29; Status DC Nitroglycerin (Nitrostat) 0.4 mg PRN Q5MIN PRN SL CHEST PAIN; Start 02/24/19 at 19:30; Stop 02/25/19 at 19:29; Status DC Insulin Human Lispro (HumaLOG) 0-7 UNITS TIDWMEALS SQ ; Start 02/25/19 at 08:00; Stop 02/25/19 at 08:00; Status DC Dextrose (Dextrose 50%-Water Syringe) 12.5 gm PRN Q15MIN PRN IV SEE COMMENTS; Start 02/24/19 at 19:30; Stop 02/25/19 at 07:11; Status DC Sodium Chloride 1,000 ml @ 125 mls/hr 1X ONCE IV Last administered on 02/24/19at 21:50; Start 02/24/19 at 19:30; Stop 02/25/19 at 03:29; Status DC Zolpidem Tartrate (Ambien) 5 mg PRN QHS PRN PO INSOMNIA Last administered on 02/27/19 21:19; Start 02/24/19 at 21:30 Aspirin (Ecotrin) 325 mg DAILYWBKFT PO Last administered on 02/28/19 08:23; Start 02/25/19 at 08:00 Atorvastatin Calcium (Lipitor) 40 mg QHS PO Last administered on 02/27/19 21:17; Start 02/24/19 at 22:00 Clopidogrel Bisulfate (Plavix) 75 mg DAILYWBKFT PO Last administered on 02/28/19 08:24; Start 02/25/19 at 08:00 Metoprolol Tartrate (Lopressor) 25 mg DAILY PO Last administered on 02/28/19 08:25; Start 02/25/19 at 09:00 Lisinopril (Prinivil) 2.5 mg DAILY PO Last administered on 02/28/19 08:23; Start 02/25/19 at 09:00 Pantoprazole Sodium (Protonix) 40 mg DAILYAC PO Last administered on 02/28/19 08:24; Start 02/25/19 at 07:30 Ceftriaxone Sodium (Rocephin) 2 gm Q24H IVP Last administered on 02/27/19 21:19; Start 02/24/19 at 22:00 Insulin Human Regular 150 unit/ Sodium Chloride 151.5 ml @ 0 mls/hr CONT PRN PRN IV PER PROTOCOL Last administered on 02/24/19at 23:08; Start 02/24/19 at 21:30; Stop 02/25/19 at 10:59; Status DC Potassium Chloride/Water 100 ml @ 100 mls/hr PRN Q1HR PRN IV SEE COMMENTS Last administered on 02/25/19at 08:28; Start 02/24/19 at 21:30; Stop 02/25/19 at 10:59; Status DC Potassium Chloride/Water 100 ml @ 100 mls/hr PRN Q1HR PRN IV SEE COMMENTS; Start 02/24/19 at 21:30; Stop 02/25/19 at 10:59; Status DC Potassium Chloride/Water 100 ml @ 100 mls/hr PRN Q1HR PRN IV SEE COMMENTS; Start 02/24/19 at 21:30; Stop 02/25/19 at 10:59; Status DC Insulin Glargine (Lantus) 35 units QHS SQ Last administered on 02/25/19at 04:05; Start 02/25/19 at 04:00; Stop 02/25/19 at 08:09; Status DC Insulin Human Lispro (HumaLOG) 0-9 UNITS TIDWMEALS SQ Last administered on 02/28/19at 12:38; Start 02/25/19 at 08:00 Dextrose (Dextrose 50%-Water Syringe) 12.5 gm PRN Q15MIN PRN IV SEE COMMENTS; Start 02/25/19 at 03:30 Lactobacillus Rhamnosus (Culturelle) 1 cap BID PO Last administered on 02/28/19 08:22; Start 02/25/19 at 09:00 Dextrose (Dextrose 50%-Water Syringe) 12.5 gm PRN Q15MIN PRN IV SEE COMMENTS; Start 02/25/19 at 07:45; Status Cancel Ondansetron HCl (Zofran) 4 mg PRN Q6HRS PRN IV NAUSEA/VOMITING; Start 02/25/19 at 08:15 Glyburide (Diabeta) 5 mg BIDWMEALS PO Last administered on 02/26/19at 08:19; Start 02/25/19 at 08:30; Stop 02/26/19 at 08:45; Status DC Insulin Glargine (Lantus) 25 units QHS SQ Last administered on 02/25/19at 20:38; Start 02/25/19 at 21:00; Stop 02/26/19 at 08:45; Status DC Insulin Glargine (Lantus) 20 units 1X STAT SQ Last administered on 02/25/19at 11:17; Start 02/25/19 at 10:58; Stop 02/25/19 at 11:03; Status DC Potassium Chloride (Klor-Con) 40 meq DAILYWBKFT PO Last administered on 02/28/19at 08:22; Start 02/26/19 at 08:00 Insulin Glargine (Lantus) 30 units QHS SQ Last administered on 02/26/19at 21:16; Start 02/26/19 at 21:00; Stop 02/27/19 at 13:58; Status DC Insulin Human Lispro (HumaLOG) 10 units TIDWMEALS SQ Last administered on 02/26/19at 17:27; Start 02/26/19 at 12:00; Stop 02/27/19 at 08:18; Status DC Warfarin Sodium (Coumadin Per Pharmacy) 1 each PRN DAILY PRN MC SEE COMMENTS Last administered on 02/28/19at 14:02; Start 02/26/19 at 11:45 Warfarin Sodium (Coumadin) 10 mg 1X ONCE PO Last administered on 02/26/19at 13:03; Start 02/26/19 at 13:00; Stop 02/26/19 at 13:01; Status DC Insulin Human Lispro (HumaLOG) 12 units TIDWMEALS SQ Last administered on 02/28/19at 12:38; Start 02/27/19 at 12:00 Lactobacillus Rhamnosus (Culturelle) 1 cap BID PO ; Start 02/27/19 at 21:00; Stop 02/27/19 at 21:00; Status DC Warfarin Sodium (Coumadin) 10 mg 1X WARF ONCE PO Last administered on 02/27/19at 16:00; Start 02/27/19 at 16:00; Stop 02/27/19 at 16:01; Status DC Insulin Glargine (Lantus) 35 units QHS SQ Last administered on 02/27/19at 21:18; Start 02/27/19 at 21:00 Warfarin Sodium (Coumadin) 12 mg ONCE ONCE PO ; Start 02/28/19 at 16:00; Stop 02/28/19 at 16:01 Active Scripts Active Glyburide 5 Mg Tablet 5 Mg PO BIDWMEALS MDD 1 Lantus Solostar (Insulin Glargine,Hum.rec.anlog) 100 Unit/1 Ml Insuln.pen 25 Units SQ QHS MDD 1 30 Days [Pantoprazole] 40 MG Tablet.dr 40 Mg PO DAILYAC MDD 1 Aspirin Ec (Aspirin) 325 Mg Tablet. 325 Mg PO DAILYWBKFT MDD 1 Lisinopril 5 Mg Tablet 2.5 Mg PO DAILY MDD 1 Metoprolol Tartrate 25 Mg Tablet 25 Mg PO DAILY MDD 1 Atorvastatin Calcium 40 Mg Tablet 40 Mg PO QHS MDD 1 Clopidogrel (Clopidogrel Bisulfate) 75 Mg Tablet 75 Mg PO DAILYWBKFT MDD 1 Reported No Known Medications Prior To Admisstion (Info) Each 1 Each DAILY Vitals/I & O Vital Sign - Last 24 Hours 02/27/19 02/27/19 02/27/19 02/27/19 15:00 19:18 19:28 23:25 Temp 98.0 98.0 98.0 98.0 Pulse 88 95 Resp 19 16 B/P (MAP) 128/56 (80) 115/75 (88) Pulse Ox 94 95 98 O2 Delivery Room Air Room Air Room Air BiPAP/CPAP 02/27/19 02/28/19 02/28/19 02/28/19 23:30 01:25 03:22 03:35 Temp 97.7 97.5 97.7 97.5 Pulse 99 78 Resp 16 18 B/P (MAP) 112/71 (85) 108/63 (78) Pulse Ox 94 97 O2 Delivery BiPAP/CPAP BiPAP/CPAP BiPAP/CPAP BiPAP/CPAP 02/28/19 02/28/19 02/28/19 02/28/19 07:00 08:00 08:23 08:25 Temp 97.9 97.9 Pulse 95 95 95 Resp 16 B/P (MAP) 121/77 (92) 121/77 121/77 Pulse Ox 94 O2 Delivery Room Air Room Air 02/28/19 11:00 Temp 97.8 97.8 Pulse 83 Resp 18 B/P (MAP) 160/61 (94) Pulse Ox 93 O2 Delivery Room Air Intake and Output 02/27/19 02/27/19 02/28/19 15:00 23:00 07:00 Intake Total 480 ml 730 ml 600 ml Output Total 350 ml Balance 480 ml 380 ml 600 ml TARUN SALGADO MD Feb 28, 2019 14:24
[2019-02-28 15:48] VITALS: BP 130/84
[2019-02-28] MEDS ORDERED: WARFARIN 4 MG TABLET. PO ONE (16:00)
[2019-02-28 19:24] VITALS: BP 144/79
[2019-02-28] MEDS: ATORVASTATIN CALCIUM 40 MG TABLET. PO SCH (20:56)
[2019-02-28] MEDS: INSULIN GLARGINE 300 UNITS/3 ML INSULN.PEN. SQ SCH (20:57)
[2019-02-28] MEDS: cefTRIAXone IV Push 2 GM VIAL. IVP SCH (20:57)
[2019-02-28 23:58] VITALS: BP 119/77
[2019-03-01 03:35] VITALS: BP 129/97
[2019-03-01] MEDS: HEPARIN 25,000UTS/500ML PREMIX 500 ML IV PRN ×3 (04:45→20:41)
[2019-03-01 05:24] LABS: PROTHROMBIN TIME PATIENT 18.8 SEC (11.7-14.0)
[2019-03-01 05:26] LABS: UNFRACTIONATED HEPARIN TESTING 0.28 IU/mL (0.30-0.70)
[2019-03-01] MEDS: HEPARIN for IV BOLUS 10,000 UNIT/10 ML VIAL. IV PRN (06:20)
[2019-03-01 07:00] VITALS: BP 115/58
[2019-03-01] MEDS: METOPROLOL TART IMMED RELEASE 25 MG TABLET. PO SCH (08:39)
[2019-03-01] MEDS: LACTOBACILLUS RHAMNOSUS GG 1 CAPSULE. PO SCH ×2 (08:39→20:38)
[2019-03-01] MEDS: CLOPIDOGREL BISULFATE 75 MG TABLET PO SCH (08:39)
[2019-03-01] MEDS: ASPIRIN ENTERIC COATED 325 MG TABLET.DR. PO SCH (08:40)
[2019-03-01] MEDS: PANTOPRAZOLE 40 MG TABLET.DR. PO SCH (08:40)
[2019-03-01] MEDS: INSULIN LISPRO 300 UNITS/3 ML INSULN.PEN. SQ SCH ×6 (08:41→17:40)
[2019-03-01] MEDS: POTASSIUM CHLORIDE 20 MEQ TABLET.ER. PO SCH (08:44)
[2019-03-01] MEDS: LISINOPRIL 5 MG TABLET. PO SCH (08:46)
[2019-03-01 11:00] VITALS: BP 108/66
--- NOTE | 2019-03-01 12:52 | PDOC ---
PROGRESS NOTES Chief Complaint Chief Complaint Saddle PE Right popliteal DVT History DVT and PE in the past - supposed to be on warfarin-lifetime Acute hypoxic respiratory failure sec to saddle PE HONK-DM type II - hgba1c 11 in 2018 Morbid obesity BMI 52 ARF UTI - e coli Sepsis - likely 2/2 UTI History of Present Illness History of Present Illness 39yo M admitted with CP, found with large saddle PE. Heparin gtt running, coumadin with INR 1.6. So far maintaining O2 sats just on nasal cannula, seen in CVC. No chest pain, no increase in SOA, Gap closed Urine culture e coli, was given empiric rocephin - can d/c on ceftin when ready Tachycardic 90s to 100s at rest PLAN: His insulin regimen is 25 units daily at bedtime and OHA - and blood sugars are still in the 300s Further Increase Lantus 35 units daily at bedtime and 12U TID with meals lispro A1c 12.5 Keep heparin drip, warfarin daily INR - will likely be able to d/c in next day or 2 Echocardiogram still yet to be done On IV Rocephin - will need 2 weeks total treatment for complicated UTI in male Vitals Vitals Vital Signs Date Time Temp Pulse Resp B/P (MAP) Pulse Ox O2 Delivery O2 Flow Rate FiO2 03/01/19 08:46 89 115/58 03/01/19 08:00 Room Air 03/01/19 07:47 91 03/01/19 07:00 97.4 16 97.4 Physical Exam General: Alert, Oriented X3 Heart: Regular rate, Normal S1, Normal S2, Other (tachycardia 90s to 100s) Lungs: Clear Abdomen: Soft, No tenderness Extremities: No edema Skin: No rashes, No significant lesion Labs LABS Laboratory Tests Test 02/28/19 17:00 02/28/19 20:55 03/01/19 04:20 03/01/19 07:27 Glucose (Fingerstick) 101 mg/dL (70-99) 158 mg/dL (70-99) 229 mg/dL (70-99) Prothrombin Time 18.8 SEC (11.7-14.0) Prothromb Time International Ratio 1.6 (0.8-1.1) Heparin Anti-Xa Act, Unfractionated 0.28 IU/mL (0.30-0.70) Test 03/01/19 12:00 Glucose (Fingerstick) 195 mg/dL (70-99) Assessment and Plan Assessmemt and Plan Problems Medical Problems: (1) Acute renal failure Status: Acute (2) Chest pain Status: Acute (3) DKA (diabetic ketoacidoses) Status: Acute (4) NSTEMI (non-ST elevated myocardial infarction) Status: Acute (5) Pulmonary embolism Status: Acute Comment Review of Relevant I have reviewed the following items natailya (where applicable) has been applied. Labs Laboratory Tests Test 02/27/19 16:39 02/27/19 20:31 02/28/19 03:50 02/28/19 07:39 Glucose (Fingerstick) 228 mg/dL (70-99) 123 mg/dL (70-99) 212 mg/dL (70-99) Prothrombin Time 15.2 SEC (11.7-14.0) Prothromb Time International Ratio 1.2 (0.8-1.1) Heparin Anti-Xa Act, Unfractionated 0.32 IU/mL (0.30-0.70) Test 02/28/19 11:45 02/28/19 17:00 02/28/19 20:55 03/01/19 04:20 Glucose (Fingerstick) 210 mg/dL (70-99) 101 mg/dL (70-99) 158 mg/dL (70-99) Prothrombin Time 18.8 SEC (11.7-14.0) Prothromb Time International Ratio 1.6 (0.8-1.1) Heparin Anti-Xa Act, Unfractionated 0.28 IU/mL (0.30-0.70) Test 03/01/19 07:27 03/01/19 12:00 Glucose (Fingerstick) 229 mg/dL (70-99) 195 mg/dL (70-99) Laboratory Tests Test 02/28/19 17:00 02/28/19 20:55 03/01/19 04:20 03/01/19 07:27 Glucose (Fingerstick) 101 mg/dL (70-99) 158 mg/dL (70-99) 229 mg/dL (70-99) Prothrombin Time 18.8 SEC (11.7-14.0) Prothromb Time International Ratio 1.6 (0.8-1.1) Heparin Anti-Xa Act, Unfractionated 0.28 IU/mL (0.30-0.70) Test 03/01/19 12:00 Glucose (Fingerstick) 195 mg/dL (70-99) Microbiology 02/24/19 Urine Culture - Final, Complete 02/24/19 Urine Culture Result 1 (YESICA) - Final, Complete 02/24/19 Antimicrobic Susceptibility - Final, Complete Medications Current Medications Aspirin (Digital Luxury Aspirin) 325 mg 1X ONCE PO Last administered on 02/24/19at 16:48; Start 02/24/19 at 16:30; Stop 02/24/19 at 16:31; Status DC Nitroglycerin (Nitrostat) 0.4 mg PRN Q5MIN PRN SL CP RATING > 1/10 Last administered on 02/24/19at 16:49; Start 02/24/19 at 16:30; Stop 02/25/19 at 16:29; Status DC Morphine Sulfate (Morphine Sulfate) 4 mg PRN Q15MIN PRN IV/SQ PAIN GREATER THAN 3/10; Start 02/24/19 at 16:30; Stop 02/25/19 at 16:29; Status DC Sodium Chloride 1,000 ml @ 1,000 mls/hr 1X ONCE IV Last administered on 02/24/19at 17:35; Start 02/24/19 at 16:45; Stop 02/24/19 at 17:44; Status DC Insulin Human Regular (HumuLIN R VIAL) 10 unit 1X ONCE IV Last administered on 02/24/19at 18:53; Start 02/24/19 at 18:00; Stop 02/24/19 at 18:03; Status DC Sodium Chloride 1,000 ml @ 1,000 mls/hr 1X ONCE IV Last administered on at 18:53; Start 02/24/19 at 18:00; Stop 02/24/19 at 18:59; Status DC Sodium Bicarbonate (Sodium Bicarb Adult 8.4% Syr) 50 meq 1X ONCE IV Last administered on 02/24/19at 18:50; Start 02/24/19 at 18:00; Stop 02/24/19 at 18:03; Status DC Iohexol (Omnipaque 350 Mg/ml) 90 ml 1X ONCE IV Last administered on 02/24/19at 18:30; Start 02/24/19 at 18:30; Stop 02/24/19 at 18:31; Status DC Info (CONTRAST GIVEN -- Rx MONITORING) 1 each PRN DAILY PRN MC SEE COMMENTS; Start 02/24/19 at 18:30; Stop 02/26/19 at 18:29; Status DC Ondansetron HCl (Zofran) 8 mg 1X ONCE IM Last administered on 02/24/19at 18:47; Start 02/24/19 at 18:45; Stop 02/24/19 at 18:46; Status DC Enoxaparin Sodium (Lovenox Per Pharmacy Treatment Dosing) 1 each STAT STAT MC ; Start 02/24/19 at 18:50; Stop 02/24/19 at 18:54; Status DC Enoxaparin Sodium (Lovenox 100mg Syringe) 100 mg 1X ONCE SQ ; Start 02/24/19 at 19:30; Stop 02/24/19 at 19:30; Status DC Enoxaparin Sodium (Lovenox 80mg Syringe) 80 mg 1X ONCE SQ ; Start 02/24/19 at 19:30; Stop 02/24/19 at 19:30; Status DC Heparin Sodium/ Dextrose 500 ml @ 0 mls/hr CONT PRN IV SEE I/O RECORD Last administered on 03/01/19at 06:22; Start 02/24/19 at 19:15 Heparin Sodium (Porcine) (Heparin Sodium) 5,450 unit PRN Q6HRS PRN IV FOR UFH LEVEL LESS THAN 0.2 Last administered on 03/01/19at 06:20; Start 02/24/19 at 19:15 Info (Anti-Coagulation Monitoring By Pharmacy) 1 each PRN DAILY PRN MC SEE COMMENTS Last administered on 02/27/19at 10:06; Start 02/24/19 at 19:15 Ondansetron HCl (Zofran) 4 mg PRN Q8HRS PRN IV NAUSEA/VOMITING; Start 02/24/19 at 19:30; Stop 02/25/19 at 08:08; Status DC Morphine Sulfate (Morphine Sulfate) 4 mg PRN Q2HR PRN IV PAIN; Start 02/24/19 at 19:30; Stop 02/25/19 at 19:29; Status DC Acetaminophen (Tylenol) 650 mg PRN Q4HRS PRN PO FEVER; Start 02/24/19 at 19:30; Stop 02/25/19 at 19:29; Status DC Nitroglycerin (Nitrostat) 0.4 mg PRN Q5MIN PRN SL CHEST PAIN; Start 02/24/19 at 19:30; Stop 02/25/19 at 19:29; Status DC Insulin Human Lispro (HumaLOG) 0-7 UNITS TIDWMEALS SQ ; Start 02/25/19 at 08:00; Stop 02/25/19 at 08:00; Status DC Dextrose (Dextrose 50%-Water Syringe) 12.5 gm PRN Q15MIN PRN IV SEE COMMENTS; Start 02/24/19 at 19:30; Stop 02/25/19 at 07:11; Status DC Sodium Chloride 1,000 ml @ 125 mls/hr 1X ONCE IV Last administered on 02/24/19at 21:50; Start 02/24/19 at 19:30; Stop 02/25/19 at 03:29; Status DC Zolpidem Tartrate (Ambien) 5 mg PRN QHS PRN PO INSOMNIA Last administered on 02/27/19 21:19; Start 02/24/19 at 21:30 Aspirin (Ecotrin) 325 mg DAILYWBKFT PO Last administered on 03/01/19 08:40; Start 02/25/19 at 08:00 Atorvastatin Calcium (Lipitor) 40 mg QHS PO Last administered on 02/28/19 20:56; Start 02/24/19 at 22:00 Clopidogrel Bisulfate (Plavix) 75 mg DAILYWBKFT PO Last administered on 03/01/19 08:39; Start 02/25/19 at 08:00 Metoprolol Tartrate (Lopressor) 25 mg DAILY PO Last administered on 03/01/19 08:39; Start 02/25/19 at 09:00 Lisinopril (Prinivil) 2.5 mg DAILY PO Last administered on 03/01/19 08:46; Start 02/25/19 at 09:00 Pantoprazole Sodium (Protonix) 40 mg DAILYAC PO Last administered on 03/01/19 08:40; Start 02/25/19 at 07:30 Ceftriaxone Sodium (Rocephin) 2 gm Q24H IVP Last administered on 4/30/19at 20:57; Start 02/24/19 at 22:00; Stop 03/01/19 at 11:20; Status DC Insulin Human Regular 150 unit/ Sodium Chloride 151.5 ml @ 0 mls/hr CONT PRN PRN IV PER PROTOCOL Last administered on 02/24/19at 23:08; Start 02/24/19 at 21:30; Stop 02/25/19 at 10:59; Status DC Potassium Chloride/Water 100 ml @ 100 mls/hr PRN Q1HR PRN IV SEE COMMENTS Last administered on 02/25/19at 08:28; Start 02/24/19 at 21:30; Stop 02/25/19 at 10:59; Status DC Potassium Chloride/Water 100 ml @ 100 mls/hr PRN Q1HR PRN IV SEE COMMENTS; Start 02/24/19 at 21:30; Stop 02/25/19 at 10:59; Status DC Potassium Chloride/Water 100 ml @ 100 mls/hr PRN Q1HR PRN IV SEE COMMENTS; Start 02/24/19 at 21:30; Stop 02/25/19 at 10:59; Status DC Insulin Glargine (Lantus) 35 units QHS SQ Last administered on 02/25/19at 04:05; Start 02/25/19 at 04:00; Stop 02/25/19 at 08:09; Status DC Insulin Human Lispro (HumaLOG) 0-9 UNITS TIDWMEALS SQ Last administered on 03/01/19at 08:41; Start 02/25/19 at 08:00 Dextrose (Dextrose 50%-Water Syringe) 12.5 gm PRN Q15MIN PRN IV SEE COMMENTS; Start 02/25/19 at 03:30 Lactobacillus Rhamnosus (Culturelle) 1 cap BID PO Last administered on 03/01/19at 08:39; Start 02/25/19 at 09:00 Dextrose (Dextrose 50%-Water Syringe) 12.5 gm PRN Q15MIN PRN IV SEE COMMENTS; Start 02/25/19 at 07:45; Status Cancel Ondansetron HCl (Zofran) 4 mg PRN Q6HRS PRN IV NAUSEA/VOMITING; Start 02/25/19 at 08:15 Glyburide (Diabeta) 5 mg BIDWMEALS PO Last administered on 02/26/19at 08:19; Start 02/25/19 at 08:30; Stop 02/26/19 at 08:45; Status DC Insulin Glargine (Lantus) 25 units QHS SQ Last administered on 02/25/19at 20:38; Start 02/25/19 at 21:00; Stop 02/26/19 at 08:45; Status DC Insulin Glargine (Lantus) 20 units 1X STAT SQ Last administered on 02/25/19at 11:17; Start 02/25/19 at 10:58; Stop 02/25/19 at 11:03; Status DC Potassium Chloride (Klor-Con) 40 meq DAILYWBKFT PO Last administered on 03/01/19 08:44; Start 02/26/19 at 08:00 Insulin Glargine (Lantus) 30 units QHS SQ Last administered on 02/26/19at 21:16; Start 02/26/19 at 21:00; Stop 02/27/19 at 13:58; Status DC Insulin Human Lispro (HumaLOG) 10 units TIDWMEALS SQ Last administered on 02/26/19at 17:27; Start 02/26/19 at 12:00; Stop 02/27/19 at 08:18; Status DC Warfarin Sodium (Coumadin Per Pharmacy) 1 each PRN DAILY PRN MC SEE COMMENTS Last administered on 03/01/19 11:18; Start 02/26/19 at 11:45 Warfarin Sodium (Coumadin) 10 mg 1X ONCE PO Last administered on 02/26/19at 13:03; Start 02/26/19 at 13:00; Stop 02/26/19 at 13:01; Status DC Insulin Human Lispro (HumaLOG) 12 units TIDWMEALS SQ Last administered on 03/01/19at 08:44; Start 02/27/19 at 12:00 Lactobacillus Rhamnosus (Culturelle) 1 cap BID PO ; Start 02/27/19 at 21:00; Stop 02/27/19 at 21:00; Status DC Warfarin Sodium (Coumadin) 10 mg 1X WARF ONCE PO Last administered on 02/27/19at 16:00; Start 02/27/19 at 16:00; Stop 02/27/19 at 16:01; Status DC Insulin Glargine (Lantus) 35 units QHS SQ Last administered on 02/28/19at 20:57; Start 02/27/19 at 21:00 Warfarin Sodium (Coumadin) 12 mg ONCE ONCE PO Last administered on 02/28/19at 16:00; Start 02/28/19 at 16:00; Stop 02/28/19 at 16:01; Status DC Warfarin Sodium (Coumadin) 12 mg 1X WARF ONCE PO ; Start 03/01/19 at 16:00; Stop 03/01/19 at 16:01 Cefdinir (Omnicef) 300 mg BID PO ; Start 03/01/19 at 21:00 Active Scripts Active Glyburide 5 Mg Tablet 5 Mg PO BIDWMEALS MDD 1 Lantus Solostar (Insulin Glargine,Hum.rec.anlog) 100 Unit/1 Ml Insuln.pen 25 Units SQ QHS MDD 1 30 Days [Pantoprazole] 40 MG Tablet. 40 Mg PO DAILYAC MDD 1 Aspirin Ec (Aspirin) 325 Mg Tablet.dr 325 Mg PO DAILYWBKFT MDD 1 Lisinopril 5 Mg Tablet 2.5 Mg PO DAILY MDD 1 Metoprolol Tartrate 25 Mg Tablet 25 Mg PO DAILY MDD 1 Atorvastatin Calcium 40 Mg Tablet 40 Mg PO QHS MDD 1 Clopidogrel (Clopidogrel Bisulfate) 75 Mg Tablet 75 Mg PO DAILYWBKFT MDD 1 Reported No Known Medications Prior To Admisstion (Info) Each 1 Each DAILY Vitals/I & O Vital Sign - Last 24 Hours 02/28/19 02/28/19 02/28/19 02/28/19 15:48 19:24 19:25 23:04 Temp 97.7 98.0 97.7 98.0 Pulse 87 102 Resp 16 16 B/P (MAP) 130/84 (99) 144/79 (100) Pulse Ox 94 94 O2 Delivery Room Air Room Air Room Air BiPAP/CPAP 02/28/19 03/01/19 03/01/19 03/01/19 23:58 01:02 03:35 07:00 Temp 97.9 97.6 97.4 97.9 97.6 97.4 Pulse 83 83 89 Resp 22 18 16 B/P (MAP) 119/77 (91) 129/97 (108) 115/58 (77) Pulse Ox 96 97 97 O2 Delivery BiPAP/CPAP BiPAP/CPAP Room Air Room Air 03/01/19 03/01/19 03/01/19 03/01/19 07:47 08:00 08:39 08:46 Pulse 89 89 B/P (MAP) 115/58 115/58 Pulse Ox 91 O2 Delivery Room Air Room Air Intake and Output 02/28/19 02/28/19 03/01/19 15:00 23:00 07:00 Intake Total 300 ml 400 ml Output Total 300 ml Balance 0 ml 400 ml TARUN SALGADO MD March 01, 2019 12:52
[2019-03-01 15:00] VITALS: BP 129/75
[2019-03-01] MEDS ORDERED: WARFARIN 4 MG TABLET. PO ONE (16:00)
[2019-03-01 19:23] VITALS: BP 134/95
[2019-03-01] MEDS: ATORVASTATIN CALCIUM 40 MG TABLET. PO SCH (20:38)
[2019-03-01] MEDS: CEFDINIR 300 MG CAPSULE PO SCH (20:38)
[2019-03-01] MEDS: INSULIN GLARGINE 300 UNITS/3 ML INSULN.PEN. SQ SCH (20:39)
[2019-03-01 22:51] VITALS: BP 117/75
[2019-03-02 03:33] VITALS: BP 102/63
[2019-03-02 07:00] VITALS: BP 127/81
[2019-03-02 07:40] LABS: PROTHROMBIN TIME PATIENT 27.4 SEC (11.7-14.0)
[2019-03-02] MEDS: CEFDINIR 300 MG CAPSULE PO SCH (08:32)
[2019-03-02] MEDS: CLOPIDOGREL BISULFATE 75 MG TABLET PO SCH (08:32)
[2019-03-02] MEDS: PANTOPRAZOLE 40 MG TABLET.DR. PO SCH (08:33)
[2019-03-02] MEDS: ASPIRIN ENTERIC COATED 325 MG TABLET.DR. PO SCH (08:33)
[2019-03-02] MEDS: POTASSIUM CHLORIDE 20 MEQ TABLET.ER. PO SCH (08:33)
[2019-03-02 08:34] VITALS: BP 127/81
[2019-03-02] MEDS: METOPROLOL TART IMMED RELEASE 25 MG TABLET. PO SCH (08:34)
[2019-03-02] MEDS: LACTOBACILLUS RHAMNOSUS GG 1 CAPSULE. PO SCH (08:34)
[2019-03-02] MEDS: LISINOPRIL 5 MG TABLET. PO SCH (08:34)
[2019-03-02] MEDS: INSULIN LISPRO 300 UNITS/3 ML INSULN.PEN. SQ SCH ×2 (08:35→08:37)
--- NOTE | 2019-03-02 10:03 | PDOC ---
PULMONARY PROGRESS NOTES Subjective PT WITH NO SOA WANTS TO GO HOME Vitals Vital Signs Date Time Temp Pulse Resp B/P (MAP) Pulse Ox O2 Delivery O2 Flow Rate FiO2 03/02/19 08:34 75 127/81 03/02/19 08:00 Room Air 03/02/19 07:00 97.6 16 94 97.6 ROS: No Nausea, No Abdominal Pain, No Increase Cough General: Alert, No acute distress Lungs: Clear Cardiovascular: S1, S2 Abdomen: Soft Neuro Exam: Alert Extremities: No Edema Skin: Warm Labs Laboratory Tests Test 02/28/19 11:45 02/28/19 17:00 02/28/19 20:55 03/01/19 04:20 Glucose (Fingerstick) 210 mg/dL (70-99) 101 mg/dL (70-99) 158 mg/dL (70-99) Prothrombin Time 18.8 SEC (11.7-14.0) Prothromb Time International Ratio 1.6 (0.8-1.1) Heparin Anti-Xa Act, Unfractionated 0.28 IU/mL (0.30-0.70) Test 03/01/19 07:27 03/01/19 12:00 03/01/19 12:17 03/01/19 16:31 Glucose (Fingerstick) 229 mg/dL (70-99) 195 mg/dL (70-99) 224 mg/dL (70-99) Heparin Anti-Xa Act, Unfractionated 0.70 IU/mL (0.30-0.70) Test 03/01/19 20:05 03/01/19 20:38 03/02/19 05:00 03/02/19 08:05 Heparin Anti-Xa Act, Unfractionated 0.73 IU/mL (0.30-0.70) 0.44 IU/mL (0.30-0.70) Glucose (Fingerstick) 156 mg/dL (70-99) 170 mg/dL (70-99) Prothrombin Time 27.4 SEC (11.7-14.0) Prothromb Time International Ratio 2.6 (0.8-1.1) Laboratory Tests Test 03/01/19 12:00 03/01/19 12:17 03/01/19 16:31 03/01/19 20:05 Glucose (Fingerstick) 195 mg/dL (70-99) 224 mg/dL (70-99) Heparin Anti-Xa Act, Unfractionated 0.70 IU/mL (0.30-0.70) 0.73 IU/mL (0.30-0.70) Test 03/01/19 20:38 03/02/19 05:00 03/02/19 08:05 Glucose (Fingerstick) 156 mg/dL (70-99) 170 mg/dL (70-99) Prothrombin Time 27.4 SEC (11.7-14.0) Prothromb Time International Ratio 2.6 (0.8-1.1) Heparin Anti-Xa Act, Unfractionated 0.44 IU/mL (0.30-0.70) Medications Active Scripts Medications Dose Route/Sig Max Daily Dose Days Date Category Glyburide 5 Mg Tablet 5 Mg PO BIDWMEALS [facility] 1 10/13/18 Rx Lantus Solostar (Insulin Glargine,Hum.rec.anlog) 100 Unit/1 Ml Insuln.pen 25 Units SQ QHS [facility] 1 30 10/13/18 Rx [Pantoprazole] 40 MG Tablet.dr 40 Mg PO DAILYAC [facility] 1 10/13/18 Rx Aspirin Ec (Aspirin) 325 Mg Tablet.dr 325 Mg PO DAILYWBKFT [facility] 1 10/13/18 Rx Lisinopril 5 Mg Tablet 2.5 Mg PO DAILY MDD 1 10/13/18 Rx Metoprolol Tartrate 25 Mg Tablet 25 Mg PO DAILY MDD 1 10/13/18 Rx Atorvastatin Calcium 40 Mg Tablet 40 Mg PO QHS [facility] 1 10/13/18 Rx Clopidogrel (Clopidogrel Bisulfate) [facility] Rx No Known Medications Prior To Admisstion (Info) Each 1 Each DAILY 09/04/16 Reported Impression . IMPRESSION: 1. Acute hypoxemic respiratory failure. 2. Acute pulmonary embolism, deep vein thrombosis, unprovoked, second occurrence. 3. Right heart strain secondary to acute pulmonary embolism. 4. Elevated troponin secondary to above. 5. Morbid obesity. 6. Obstructive sleep apnea. 7. Type 2 diabetes. 8. Coronary artery disease with previous myocardial infarction. VENOUS IMPRESSION: 1. Occlusive thrombus in the right popliteal vein. 2. No duplex evidence of deep vein thrombosis in the left lower extremity. Plan . UP TO CHAIR VENOUS DOPPLER POSITIVE ON RIGHT LIFETIME ANTICOUGLANTS NEEDS TO LOOSE WT FOLLOW CARD INPUT DC HEPARIN/ INR THERAPEUTIC COUMADIN PER PHARM PT INSTRUCTED TO F/U WITH PCP NEXT WEEK AND IMPORTANCE OF CLOSE MONITORING OF INR F/U WITH DR GOMES IN OFFICE IF HE DESIRES BETZY MAXWELL MD March 02, 2019 10:02
[2019-03-02] MEDS ORDERED: LACT1CAP19 PO (10:11)
[2019-03-02] MEDS ORDERED: CIPR250T30 PO (10:11)
[2019-03-02] MEDS ORDERED: WARF10TA45 MC (10:11)
[2019-03-02] MEDS ORDERED: WARF2TAB96 PO (10:11)
--- NOTE | 2019-03-02 10:23 | PDOC3 ---
Discharge Summary Visit Information Date of Admission: Feb 24, 2019 Date of Discharge: March 02, 2019 Admitting Diagnosis: Chest pain, Acute saddle PE Final Diagnosis Problems Medical Problems: (1) Acute renal failure Status: Acute (2) Chest pain Status: Acute (3) DKA (diabetic ketoacidoses) Status: Acute (4) NSTEMI (non-ST elevated myocardial infarction) Status: Acute (5) Pulmonary embolism Status: Acute Brief Hospital Course Allergies Allergies Coded Allergies Type Severity Reaction Last Updated Verified No Known Drug Allergies 09/04/16 No Vital Signs Vital Signs Date Time Temp Pulse Resp B/P (MAP) Pulse Ox O2 Delivery O2 Flow Rate FiO2 03/02/19 08:34 75 127/81 03/02/19 08:00 Room Air 03/02/19 07:00 97.6 16 94 97.6 Lab Results Laboratory Tests Test 02/28/19 11:45 02/28/19 17:00 02/28/19 20:55 03/01/19 04:20 Glucose (Fingerstick) 210 mg/dL (70-99) 101 mg/dL (70-99) 158 mg/dL (70-99) Prothrombin Time 18.8 SEC (11.7-14.0) Prothromb Time International Ratio 1.6 (0.8-1.1) Heparin Anti-Xa Act, Unfractionated 0.28 IU/mL (0.30-0.70) Test 03/01/19 07:27 03/01/19 12:00 03/01/19 12:17 03/01/19 16:31 Glucose (Fingerstick) 229 mg/dL (70-99) 195 mg/dL (70-99) 224 mg/dL (70-99) Heparin Anti-Xa Act, Unfractionated 0.70 IU/mL (0.30-0.70) Test 03/01/19 20:05 03/01/19 20:38 03/02/19 05:00 03/02/19 08:05 Heparin Anti-Xa Act, Unfractionated 0.73 IU/mL (0.30-0.70) 0.44 IU/mL (0.30-0.70) Glucose (Fingerstick) 156 mg/dL (70-99) 170 mg/dL (70-99) Prothrombin Time 27.4 SEC (11.7-14.0) Prothromb Time International Ratio 2.6 (0.8-1.1) Laboratory Tests Test 03/01/19 12:00 03/01/19 12:17 03/01/19 16:31 03/01/19 20:05 Glucose (Fingerstick) 195 mg/dL (70-99) 224 mg/dL (70-99) Heparin Anti-Xa Act, Unfractionated 0.70 IU/mL (0.30-0.70) 0.73 IU/mL (0.30-0.70) Test 03/01/19 20:38 03/02/19 05:00 03/02/19 08:05 Glucose (Fingerstick) 156 mg/dL (70-99) 170 mg/dL (70-99) Prothrombin Time 27.4 SEC (11.7-14.0) Prothromb Time International Ratio 2.6 (0.8-1.1) Heparin Anti-Xa Act, Unfractionated 0.44 IU/mL (0.30-0.70) Brief Hospital Course 39yo M admitted with CP, found with large saddle PE. Was bridged for a week on heparin to therapeutic Coumadin with INR 2.6. Was initially hypoxic and in DKA. No chest pain, no increase in SOA, Gap closed Urine culture obtained e coli, was given empiric rocephin - can d/c on cipro 10 days Tachycardic 90s to 100s at rest Will f/u with his old PCP, Dr. Medrano for PSA and INR check. Saddle PE - needs lifelong anticoagulation Right popliteal DVT History DVT and PE in the past - supposed to be on warfarin-lifetime Acute hypoxic respiratory failure sec to saddle PE HONK-DM type II - hgba1c 11 in 2018 Morbid obesity BMI 52 ARF UTI - e coli Sepsis - likely 2/2 UTI PLAN: His insulin regimen is 25 units daily at bedtime and OHA - and blood sugars are still in the 300s Further Increase Lantus 35 units daily at bedtime and 12U TID with meals lispro Echocardiogram still yet to be done 2 weeks total treatment for complicated UTI in male Greater than 30 minutes spent on discharge. Discharge Information Condition at Discharge: Improved Follow Up: Weeks Disposition/Orders: D/C to Home Scheduled Aspirin (Aspirin Ec) 325 Mg Tablet.dr, 325 MG PO DAILYWBKFT for CAD MDD 1, #30 Prescribed by: TRUMAN YANEZ on 10/13/181102 Last Action: Continued on 02/24/192123 by DENYS CHAVEZ Atorvastatin Calcium (Atorvastatin Calcium) 40 Mg Tablet, 40 MG PO QHS for CAD MDD 1, #30 Prescribed by: TRUMAN YANEZ on 10/13/181102 Last Action: Continued on 02/24/192123 by DENYS CHAVEZ Ciprofloxacin Hcl (Cipro) 250 Mg Tablet, 1 TAB PO BID for UTI - e coli for 10 Days, #20 Prescribed by: TARUN SALGADO MD on 03/02/19 1011 Clopidogrel Bisulfate (Clopidogrel) 75 Mg Tablet, 75 MG PO DAILYWBKFT for cad MDD 1, #30 Prescribed by: TRUMAN YANEZ on 10/13/181102 Last Action: Continued on 02/24/192123 by DENYS CHAVEZ Glyburide (Glyburide) 5 Mg Tablet, 5 MG PO BIDWMEALS for dm 2 MDD 1, #60 Prescribed by: TRUMAN YANEZ on 10/13/181102 Last Action: Continued on 02/25/19807 by TRUMAN YANEZ Info (No Known Medications Prior To Admisstion) Each, 1 EACH MC DAILY, (Reported) Entered as Reported by: SPENCER BUSH on 09/04/16 0710 Last Action: HELD on 02/25/19807 by TRUMAN YANEZ Insulin Glargine,Hum.rec.anlog (Lantus Solostar) 100 Unit/1 Ml Insuln.pen, 25 UNITS SQ QHS for DM 2 MDD 1 for 30 Days Prescribed by: TRUMAN YANEZ on 10/13/181102 Last Action: Continued on 02/25/19807 by TRUMAN YANEZ Lactobacillus Rhamnosus Gg (Culturelle) 1 Each Cap.sprink, 1 CAP PO BID for UTI for 14 Days, #28 Prescribed by: TARUN SALGADO MD on 03/02/19 1011 Lisinopril (Lisinopril) 5 Mg Tablet, 2.5 MG PO DAILY for CAD MDD 1, #30 Prescribed by: TRUMAN YANEZ on 10/13/181102 Last Action: Converted on 02/24/192123 by DENYS CHAVEZ Metoprolol Tartrate (Metoprolol Tartrate) 25 Mg Tablet, 25 MG PO DAILY for CAD MDD 1, #30 Prescribed by: TRUMAN YANEZ on 10/13/181102 Last Action: Continued on 02/24/192123 by DENYS CHAVEZ Warfarin Sodium (Warfarin Sodium) 2 Mg Tablet, 2 MG PO DAILY for Pulmonary embolus for 30 Days, #10 Ref 11 Take on TuTh in addition to 10mg Check INR every other week Prescribed by: TARUN SALGADO MD on 03/02/19 1011 [Pantoprazole] 40 MG TABLET.DR, 40 MG PO DAILYAC for prophy GERD MDD 1, #30 Prescribed by: TRUMAN YANEZ on 10/13/181102 Last Action: Converted on 02/24/192123 by DENYS CHAVEZ Scheduled PRN Warfarin Sodium (Coumadin) 10 Mg Tablet, 1 EACH MC PRN DAILY PRN for SEE COMMENTS for 30 Days, #30 Ref 11 10mg MWFSaSu 12mg TuTh Check INR every 2 weeks Prescribed by: TARUN SALGADO MD on 03/02/19 1011 TARUN SALGADO MD March 02, 2019 10:23
== END 2019-03-02 10:51 | disposition home or self-care (01) | DRG 871 ==
LOC: ER 16:09 → 1 WEST ICU 19:02 → 2 NORTH 02-26 16:52
PROVIDERS: ADMIT Internal Medicine; ATTEND Internal Medicine
PROC: 5A09357 Assistance with Respiratory Ventilation, Less than 24 Consecutive Hours, Continuous Positive Airway Pressure (ICD-10-PCS; principal; 2019-02-27)
PROC: 5A09357 Assistance with Respiratory Ventilation, Less than 24 Consecutive Hours, Continuous Positive Airway Pressure (ICD-10-PCS; 2019-02-28)
PROC: 5A09357 Assistance with Respiratory Ventilation, Less than 24 Consecutive Hours, Continuous Positive Airway Pressure (ICD-10-PCS; 2019-03-01)
PROC: 5A09357 Assistance with Respiratory Ventilation, Less than 24 Consecutive Hours, Continuous Positive Airway Pressure (ICD-10-PCS; 2019-03-02)
DX: A41.9 Sepsis, unspecified organism (principal); E11.00 Type 2 diabetes mellitus with hyperosmolarity without nonketotic hyperglycemic-hyperosmolar coma (NKHHC); I26.92 Saddle embolus of pulmonary artery without acute cor pulmonale; J96.01 Acute respiratory failure with hypoxia; I82.431 Acute embolism and thrombosis of right popliteal vein; N17.9 Acute kidney failure, unspecified; N39.0 Urinary tract infection, site not specified; Z68.43 Body mass index [BMI] 50.0-59.9, adult; I24.8 Other forms of acute ischemic heart disease; B96.20 Unspecified Escherichia coli [E. coli] as the cause of diseases classified elsewhere; E66.01 Morbid (severe) obesity due to excess calories; E78.00 Pure hypercholesterolemia, unspecified; E78.5 Hyperlipidemia, unspecified; G47.33 Obstructive sleep apnea (adult) (pediatric); I10 Essential (primary) hypertension; I25.10 Atherosclerotic heart disease of native coronary artery without angina pectoris; I25.2 Old myocardial infarction; Z79.01 Long term (current) use of anticoagulants; Z82.49 Family history of ischemic heart disease and other diseases of the circulatory system; Z86.718 Personal history of other venous thrombosis and embolism; Z86.711 Personal history of pulmonary embolism
CPT/HCPCS: 36415; 71045; 71275; 80048; 80053; 80307; 81001; 82553; 82962; 83036; 83690; 83735; 83880; 84100; 84443; 84484; 85025; 85027; 85379; 85520; 85610; 87086; 87186; 87641; 93005; 93970; 94660; 94760; 96361; 96372; 96374; 96375; J0696; J1644; J1815; J2405; J3480; J7030; Q9967; 99285-25

== ENCOUNTER 2019-07-10 14:11 | Emergency (ER) | payer SELFPAY ==
[~2019-07-10] VITALS: Ht 188 cm; Wt 163.3 kg
[~2019-07-10 14:11] MED LIST changes: +CIPR250T30 PO; +LACT1CAP19 PO; +WARF10TA45 MC; +WARF2TAB96 PO
[2019-07-10] MEDS ORDERED: IV NORMAL SALINE 1000ML BAG 1,000 ML IV ONE (15:15)
[2019-07-10] MEDS ORDERED: MORPHINE SULFATE 10 MG/ML VIAL. IV ONE (15:15)
[2019-07-10] MEDS ORDERED: ACETAMINOPHEN 650 MG/20.3 ML SOLUTION. PO ONE (15:15)
[2019-07-10] MEDS ORDERED: methylPREDNISolone SOD SUCC PF 125 MG/2 ML VIAL. IV ONE (15:15)
[2019-07-10 15:40] LABS: BASO # 0.1 x10^3/uL (0.0-0.2); BASO % 1 % (0-3); EOS # 0.1 x10^3/uL (0.0-0.7); EOS % 1 % (0-3); HEMATOCRIT 39.4 % (39.0-53.0); HEMOGLOBIN 13.5 g/dL (13.0-17.5); LYMPH # 2.4 x10^3/uL (1.0-4.8); LYMPH % 24 % (24-48); MEAN CORPUSCULAR HEMOGLOBIN 31 pg (25-35); MEAN CORPUSCULAR HGB CONC 34 g/dL (31-37); MEAN CORPUSCULAR VOLUME 90 fL (79-100); MONO # 0.8 x10^3/uL (0.0-1.1); MONO % 8 % (0-9); NEUT # 6.5 x10^3/uL (1.8-7.7); NEUT % 66 % (31-73); PLATELET COUNT 276 x10^3/uL (140-400); RED BLOOD COUNT 4.36 x10^6/uL (4.30-5.70); RED CELL DISTRIBUTION WIDTH 14.8 % (11.5-14.5); WHITE BLOOD COUNT 9.8 x10^3/uL (4.0-11.0)
[2019-07-10 15:48] LABS: CALCIUM 9.3 mg/dL (8.5-10.1); CREATININE 1.2 mg/dL (0.7-1.3); POTASSIUM 3.6 mmol/L (3.5-5.1)
[2019-07-10 15:52] LABS: C-REACTIVE PROTEIN 51.5 mg/L (0-3.3)
[2019-07-10] MEDS ORDERED: IOHEXOL 300 MG/ML 100ML VIAL. IV ONE (16:00)
[2019-07-10] MEDS ORDERED: CONTRAST GIVEN. MC PRN (16:15)
--- NOTE | 2019-07-10 16:28 | RAD ---
CT study of the soft tissues the neck with contrast Clinical indications: Right ear swelling and facial swelling. TECHNIQUE: After IV infusion of 75 cc of Omnipaque 300, helical CT scanning of the soft tissues of the neck was performed. PQRS compliance Statement One or more of the following individualized dose reduction techniques were utilized for this study: 1. Automated exposure control 2. Adjustment of the mA and/or kV according to patient size 3. Use of iterative reconstruction technique COMPARISON: None available. FINDINGS: There is opacification of the external auditory canals bilaterally. The left middle ear cavity is clear. There is soft tissue thickening of the right middle ear cavity including the epitympanic recess. No opacification of the mastoid sinuses is seen. The parotid and submandibular salivary glands are unremarkable. No thyroid gland mass is seen. Bilateral cervical lymph nodes are seen measuring 12 mm or less in size. No bulky cervical lymphadenopathy is evident. There is enlargement of the palatine tonsils bilaterally. No peritonsillar or intratonsillar abscess is seen. The adenoids are not abnormally thickened. There is mild thickening of the sublingual tonsils within the valleculae. The epiglottis and aryepiglottic folds and true cords and false cords and preepiglottic fat space are unremarkable. The orbits are symmetric. 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 No opacification or air-fluid levels of the paranasal sinuses is seen otherwise. No lytic process is seen. IMPRESSION: Complete opacification of the right external auditory canal and soft tissue thickening of the right middle ear cavity including the epitympanic recess. Mastoid sinuses are clear. There is soft tissue thickening of the left external auditory canal. The left middle ear cavity and mastoid sinuses are clear. No paranasal sinusitis. 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 Enlargement of the palatine tonsils and sublingual tonsils which may be seen with pharyngitis. Bilateral cervical lymphadenopathy which may be reactive. Electronically signed by: Frantz Gutierrez MD (07/10/2019 4:25 PM) [place] [id number]
[2019-07-10 16:30] VITALS: BP 162/88
[2019-07-10] MEDS ORDERED: CIPR7.5D RIGHT EAR (17:14)
[2019-07-10] MEDS ORDERED: AMOX875T PO (17:14)
[2019-07-10] MEDS ORDERED: PRED50TA PO (17:14)
--- NOTE | 2019-07-10 17:14 | PHYS DOC ---
Past Medical History Past Medical History: Diabetes-Type II, High Cholesterol, Hypertension, [place] Alcohol Use: None Drug Use: None Adult General Chief Complaint Chief Complaint: FACE PROBLEM HPI HPI Patient is a 39 year old male with history of diabetes type 2, hypertension, high cholesterol, who presents to the ED today complaining of 10 out of 10 right ear pain as well as a sore throat with pain when swallowing, symptoms began 7 days ago and he states it has gotten progressively worse over time. Denies any fever. Denies any alleviating well relieving symptoms. He states he feels his right ear is muffled he states he is able to swallow though it is painful. Review of Systems Review of Systems Constitutional: Denies fever or chills [] Eyes: Denies change in visual acuity, redness, or eye pain [] HENT: Reports right ear pain, sore throat and pain during swallowing. Denies nasal congestion Respiratory: Denies cough or shortness of breath [] Cardiovascular: No additional information not addressed in HPI [] GI: Denies abdominal pain, nausea, vomiting, bloody stools or diarrhea [] : Denies dysuria or hematuria [] Musculoskeletal: Denies back pain or joint pain [] Integument: Denies rash or skin lesions [] Neurologic: Denies headache, focal weakness or sensory changes [] All other systems were reviewed and found to be within normal limits, except as documented in this note. Current Medications Current Medications Current Medications Medications (Trade) Dose Ordered Sig/Ben Start Time Stop Time Status Last Admin Dose Admin Acetaminophen (Tylenol) 650 mg 1X ONCE 07/10/19 15:15 07/10/19 15:22 DC 07/10/19 15:45 650 MG Info (CONTRAST GIVEN -- Rx MONITORING) 1 each PRN DAILY PRN 07/10/19 16:15 07/12/19 16:14 Iohexol (Omnipaque 300 Mg/ml) 70 ml 1X ONCE 07/10/19 16:00 07/10/19 16:01 DC Methylprednisolone Sodium Succinate (SOLU-Medrol 125MG VIAL) 125 mg 1X ONCE 07/10/19 15:15 07/10/19 15:22 DC 07/10/19 15:45 125 MG Morphine Sulfate (Morphine Sulfate) 5 mg 1X ONCE 07/10/19 15:15 07/10/19 15:22 DC 07/10/19 15:45 5 MG Sodium Chloride 1,000 ml @ 1,000 mls/hr 1X ONCE 07/10/19 15:15 07/10/19 16:14 DC 07/10/19 15:45 1,000 MLS/HR Allergies Allergies Allergies Coded Allergies Type Severity Reaction Last Updated Verified No Known Drug Allergies 09/04/16 No Physical Exam Physical Exam Constitutional: Well developed, well nourished, no acute distress, non-toxic appearance. [] HENT: Normocephalic, atraumatic, oropharynx moist, no oral exudates, nose normal. Right ear canal is swollen and not around, there is moderate exudate in the ear canal, tragus is painful, TM not well visualized, posterior pharynx with moderate erythema. Airway is open. Eyes: PERRLA, EOMI, conjunctiva normal, no discharge. [] Neck: Normal range of motion, no tenderness, supple, no stridor. [] Cardiovascular:Heart rate regular rhythm, no murmur [] Lungs & Thorax: Bilateral breath sounds clear to auscultation [] Abdomen: Bowel sounds normal, soft, no tenderness, no masses, no pulsatile masses. [] Skin: Warm, dry, no erythema, no rash. [] Back: No tenderness, no CVA tenderness. [] Extremities: No tenderness, no cyanosis, no clubbing, ROM intact, no edema. [] Neurologic: Alert and oriented X 3, normal motor function, normal sensory function, no focal deficits noted. [] Psychologic: Affect normal, judgement normal, mood normal. [] Current Patient Data Vital Signs Vital Signs Date Time Temp Pulse Resp B/P (MAP) Pulse Ox O2 Delivery O2 Flow Rate FiO2 07/10/19 16:30 90 18 162/88 (112) 97 Room Air 07/10/19 15:05 99.0 99.0 Lab Values Laboratory Tests Test 07/10/19 15:30 White Blood Count 9.8 x10^3/uL (4.0-11.0) Red Blood Count 4.36 x10^6/uL (4.30-5.70) Hemoglobin 13.5 g/dL (13.0-17.5) Hematocrit 39.4 % (39.0-53.0) Mean Corpuscular Volume 90 fL (79-100) Mean Corpuscular Hemoglobin 31 pg (25-35) Mean Corpuscular Hemoglobin Concent 34 g/dL (31-37) Red Cell Distribution Width 14.8 % (11.5-14.5) H Platelet Count 276 x10^3/uL (140-400) Neutrophils (%) (Auto) 66 % (31-73) Lymphocytes (%) (Auto) 24 % (24-48) Monocytes (%) (Auto) 8 % (0-9) Eosinophils (%) (Auto) 1 % (0-3) Basophils (%) (Auto) 1 % (0-3) Neutrophils # (Auto) 6.5 x10^3/uL (1.8-7.7) Lymphocytes # (Auto) 2.4 x10^3/uL (1.0-4.8) Monocytes # (Auto) 0.8 x10^3/uL (0.0-1.1) Eosinophils # (Auto) 0.1 x10^3/uL (0.0-0.7) Basophils # (Auto) 0.1 x10^3/uL (0.0-0.2) Erythrocyte Sedimentation Rate 49 (0-15) H Sodium Level 139 mmol/L (136-145) Potassium Level 3.6 mmol/L (3.5-5.1) Chloride Level 103 mmol/L (98-107) Carbon Dioxide Level 28 mmol/L (21-32) Anion Gap 8 (6-14) Blood Urea Nitrogen 11 mg/dL (8-26) Creatinine 1.2 mg/dL (0.7-1.3) Estimated GFR (Cockcroft-Gault) 82.0 Glucose Level 150 mg/dL (70-99) H Lactic Acid Level 1.0 mmol/L (0.4-2.0) Calcium Level 9.3 mg/dL (8.5-10.1) C-Reactive Protein, Quantitative 51.5 mg/L (0-3.3) H Laboratory Tests 07/10/19 15:30 Laboratory Tests 07/10/19 15:30 EKG EKG [] Radiology/Procedures Radiology/Procedures []PROCEDURE: CT SOFT TISSUE NECK W/CONTRAST CT study of the soft tissues the neck with contrast Clinical indications: Right ear swelling and facial swelling. TECHNIQUE: After IV infusion of 75 cc of Omnipaque 300, helical CT scanning of the soft tissues of the neck was performed. PQRS compliance Statement One or more of the following individualized dose reduction techniques were utilized for this study: 1. Automated exposure control 2. Adjustment of the mA and/or kV according to patient size 3. Use of iterative reconstruction technique COMPARISON: None available. FINDINGS: There is opacification of the external auditory canals bilaterally. The left middle ear cavity is clear. There is soft tissue thickening of the right middle ear cavity including the epitympanic recess. No opacification of the mastoid sinuses is seen. The parotid and submandibular salivary glands are unremarkable. No thyroid gland mass is seen. Bilateral cervical lymph nodes are seen measuring 12 mm or less in size. No bulky cervical lymphadenopathy is evident. There is enlargement of the palatine tonsils bilaterally. No peritonsillar or intratonsillar abscess is seen. The adenoids are not abnormally thickened. There is mild thickening of the sublingual tonsils within the valleculae. The epiglottis and aryepiglottic folds and true cords and false cords and preepiglottic fat space are unremarkable. The orbits are symmetric. 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 No opacification or air-fluid levels of the paranasal sinuses is seen otherwise. No lytic process is seen. IMPRESSION: Complete opacification of the right external auditory canal and soft tissue thickening of the right middle ear cavity including the epitympanic recess. Mastoid sinuses are clear. There is soft tissue thickening of the left external auditory canal. The left middle ear cavity and mastoid sinuses are clear. No paranasal sinusitis. 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 Enlargement of the palatine tonsils and sublingual tonsils which may be seen with pharyngitis. Bilateral cervical lymphadenopathy which may be reactive. Electronically signed by: Eddie Gutierrez MD (07/10/2019 4:25 PM) [facility] DICTATED and SIGNED BY: EDDIE GUTIERREZ MD DATE: 07/10/19 2425 Course & Med Decision Making Course & Med Decision Making Pertinent Labs and Imaging studies reviewed. (See chart for details) This is a 39-year-old male patient who presents to the ED today complaining of right ear pain, sore throat, symptoms began 7 days ago and have increasingly gotten worse. He is tolerating his own secretions. CBC with a normal WBC, BMP with no acute findings. CT of the neck soft tissue noted for acute pharyngitis and opacity in the right ear canal. Physical exam of the right ear canal is consistent with otitis externa. Patient was given IV fluids and Solu-Medrol in the ED. Also given Rocephin. Discharge on Ciprodex otitis externa, amoxicillin and prednisone for pharyngitis, provided ENT for follow-up. Dragon Disclaimer Dragon Disclaimer This electronic medical record was generated, in whole or in part, using a voice recognition dictation system. Departure Departure Impression: Primary Impression: Otitis externa of right ear Additional Impression: Pharyngitis, acute Disposition: HOME, SELF-CARE Condition: STABLE Referrals: NO PCP (PCP) CONOR WALTER MD follow up in one week Patient Instructions: Otitis Externa, [id number], Viral and Bacterial Ph aryngitis Additional Instructions: You were evaluated in the emergency room and noted to have right ear infection as well as throat infection. Take the prescribed medications as ordered until completed. Follow-up with the provided ENT or your own doctor in 1-2 weeks. Scripts Ciprofloxacin Hcl/Dexameth (CIPRODEX OTIC SUSPENSION) 7.5 Ml Drops.susp 4 DROP RIGHT EAR BID, #7.5 ML Prov: SARBJIT KEMP APRN 07/10/19 Amoxicillin (AMOXICILLIN) 875 Mg Tablet 1 TAB PO BID, #20 TAB Prov: SARBJIT KEMP APRN 07/10/19 Prednisone (PREDNISONE) 50 Mg Tablet 1 TAB PO DAILY, #5 TAB Prov: SARBJIT KEMP APRN 07/10/19 Problem Qualifiers Primary Impression: Otitis externa of right ear Otitis externa type: other infective Chronicity: acute Qualified Codes: H60.391 - Other infective otitis externa, right ear Additional Impression: Pharyngitis, acute Pharyngitis/tonsillitis etiology: unspecified etiology Qualified Codes: J02.9 - Acute pharyngitis, unspecified SARBJIT KEMP APRN Jul 10, 2019 17:14
== END 2019-07-10 17:21 | disposition home or self-care (01) ==
LOC: ER 14:11
DX: H60.391 Other infective otitis externa, right ear (principal); J02.9 Acute pharyngitis, unspecified; E11.9 Type 2 diabetes mellitus without complications; E78.00 Pure hypercholesterolemia, unspecified; I10 Essential (primary) hypertension; I25.2 Old myocardial infarction
CPT/HCPCS: 36415; 70491; 80048; 83605; 85025; 85651; 86140; 96374; 96375; 99285; J2270; J2930; J7030; Q9967

== ENCOUNTER → 2020-09-24 | Outpatient (CLI) | payer BC ==
[~2020-09-24] MED LIST changes: +AMOX875T PO; +CIPR7.5D RIGHT EAR; +PRED50TA PO
--- NOTE | 2020-09-24 15:52 | KCIC ---
3 views the bilateral knees without comparison for chronic hip and bilateral knee pain, worsening over the past year. FINDINGS: There is no fracture, dislocation, or acute osseous abnormality of either knee. No suprapatellar joint effusions are seen. No significant degenerative changes. Benign bone island in the distal femur on the right. IMPRESSION: 1. No acute osseous abnormality of either knee. Electronically signed by: Ashvin Lazar MD (09/24/2020 3:49 PM) [id number]
--- NOTE | 2020-09-24 15:53 | KCIC ---
2 views the right hip without comparison for chronic hip and bilateral knee pain, worse over the past year. FINDINGS: There is no fracture, dislocation, or acute osseous abnormality identified. There is enthesopathy of the lesser trochanter. No significant degenerative changes. IMPRESSION: 1. No acute osseous abnormality. Electronically signed by: Ashvin Lazar MD (09/24/2020 3:50 PM) [id number]
== END ==
LOC: KCIC 14:32
PROVIDERS: ATTEND Family Medicine
DX: M25.561 Pain in right knee (principal); M25.562 Pain in left knee; M25.551 Pain in right hip
CPT/HCPCS: 73502; 73562

== ENCOUNTER 2021-12-27 09:24 | Emergency (ER) | payer BC ==
[~2021-12-27] VITALS: Ht 188 cm; Wt 127.2 kg
[~2021-12-27 09:24] MED LIST changes: -LISI-338 PO; +LISI5TAB15 PO
[2021-12-27] MEDS ORDERED: ORPHENADRINE CITRATE 60 MG/2 ML VIAL. IM ONE (09:45)
[2021-12-27] MEDS ORDERED: MORPHINE SULFATE 4 MG/ML INJ. IVP ONE (09:45)
--- NOTE | 2021-12-27 09:55 | PHYS DOC ---
Past Medical History Past Medical History: Diabetes-Type II, High Cholesterol, Hypertension, [place] Past Surgical History: No Surgical History Smoking Status: Never Smoker Alcohol Use: None Drug Use: None General Adult EDM: Chief Complaint: BACK PAIN OR INJURY HPI: HPI: Patient is a 41-year-old male who presents today with low back pain and chest pain. Patient states around 7 AM while at work he was lifting a box and he said he felt a severe pain in his lower back that radiates up into his neck and around to his chest. Patient states that he has had chest pain and back pain since around 7 AM this morning. Patient does have a past medical history of coronary artery disease with angioplasty stent placement, patient also has an implantable device in his chest but he is unsure of what kind it is whether the pacemaker or an AICD. Patient does take Eliquis on a daily basis along with atorvastatin, lisinopril and HCTZ. 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 Patient denies having any difficulty urinating or defecating, he states he has not had any incontinence of bowel or bladder. Review of Systems: Review of Systems: Constitutional: Denies fever or chills. [] Eyes: Denies change in visual acuity. [] HENT: Denies nasal congestion or sore throat. [] Respiratory: Denies cough or shortness of breath. [] Cardiovascular: Chest pain denies edema. [] GI: Denies abdominal pain, nausea, vomiting, bloody stools or diarrhea. [] : Denies dysuria. [] Musculoskeletal: Low back pain denies joint pain. [] Integument: Denies rash. [] Neurologic: Denies headache, focal weakness or sensory changes. [] Endocrine: Denies polyuria or polydipsia. [] Lymphatic: Denies swollen glands. [] Psychiatric: Denies depression or anxiety. [] Heart Score: C/O Chest Pain: Yes HEART Score for Chest Pain: HEART Score for Chest Pain Response (Comments) Value History Slighlty/Non-Suspicious 0 ECG Normal 0 Age < 45 0 Risk Factors >3 Risk Factors or Hx CAD 2 Troponin < Normal Limit 0 Total 2 Risk Factors: Risk Factors: DM, Current or recent (<one month) smoker, HTN, HLP, family history of CAD, obesity. Risk Scores: Score 0 - 3: 2.5% MACE over next 6 weeks - Discharge Home Score 4 - 6: 20.3% MACE over next 6 weeks - Admit for Clinical Observation Score 7 - 10: 72.7% MACE over next 6 weeks - Early Invasive Strategies Current Medications: Home medications Eliquis Lisinopril HCTZ Atorvastatin Allergies: Allergies: Allergies Coded Allergies Type Severity Reaction Last Updated Verified No Known Drug Allergies 12/27/21 No Physical Exam: PE: Constitutional: Well developed, well nourished, moderate distress, non-toxic appearance. [] HENT: Normocephalic, atraumatic, bilateral external ears normal, oropharynx moist, no oral exudates, nose normal. [] Eyes: PERRLA, EOMI, conjunctiva normal, no discharge. [] Neck: Normal range of motion, no tenderness, supple, no stridor no midline tenderness [] Cardiovascular:Heart rate regular rhythm, no murmur [] Lungs & Thorax: Bilateral breath sounds clear to auscultation [] Abdomen: Bowel sounds normal, soft, no tenderness, no masses, no pulsatile masses. [] Skin: Warm, dry, no erythema, no rash. [] Back: Tenderness with palpation over the low back into the upper buttock area, no lacerations, abrasions, contusions, or ecchymosis noted. No midline tenderness noted Extremities: Patient moves all 4 extremities freely within normal limits, no sensory deficits distal to the back pain, pedal pulses are 2+ cap refills less than 2 seconds sensory is intact distal to the injury Neurologic: Alert and oriented X 3, normal motor function, normal sensory function, no focal deficits noted. [] Psychologic: Affect normal, judgement normal, mood normal. [] Current Patient Data: Labs: Laboratory Tests Test 12/27/21 10:05 White Blood Count 7.3 x10^3/uL Red Blood Count 4.79 x10^6/uL Hemoglobin 15.1 g/dL Hematocrit 46.4 % Mean Corpuscular Volume 97 fL Mean Corpuscular Hemoglobin 32 pg Mean Corpuscular Hemoglobin Concent 33 g/dL Red Cell Distribution Width 14.0 % Platelet Count 226 x10^3/uL Neutrophils (%) (Auto) 46 % Lymphocytes (%) (Auto) 47 % Monocytes (%) (Auto) 6 % Eosinophils (%) (Auto) 1 % Basophils (%) (Auto) 1 % Neutrophils # (Auto) 3.3 x10^3/uL Lymphocytes # (Auto) 3.4 x10^3/uL Monocytes # (Auto) 0.4 x10^3/uL Eosinophils # (Auto) 0.1 x10^3/uL Basophils # (Auto) 0.1 x10^3/uL Sodium Level 140 mmol/L Potassium Level 4.1 mmol/L Chloride Level 101 mmol/L Carbon Dioxide Level 22 mmol/L Anion Gap 17 Blood Urea Nitrogen 11 mg/dL Creatinine 1.2 mg/dL Estimated GFR (Cockcroft-Gault) 81.1 BUN/Creatinine Ratio 9 Glucose Level 62 mg/dL Calcium Level 8.8 mg/dL Total Bilirubin 0.5 mg/dL Aspartate Amino Transf (AST/SGOT) 35 U/L Alanine Aminotransferase (ALT/SGPT) 57 U/L Alkaline Phosphatase 67 U/L Troponin I High Sensitivity 10 ng/L Total Protein 7.9 g/dL Albumin 4.0 g/dL Albumin/Globulin Ratio 1.0 Current Medications Medications (Trade) Dose Ordered Sig/Ben Route PRN Reason Start Time Stop Time Status Last Admin Dose Admin Orphenadrine Citrate (Norflex) 60 mg 1X ONCE IM 12/27/21 09:45 12/27/21 09:51 DC 12/27/21 10:04 Morphine Sulfate (Morphine Sulfate) 4 mg 1X ONCE IVP 12/27/21 09:45 12/27/21 09:51 DC 12/27/21 10:03 Vital Signs: Vital Signs Date Time Temp Pulse Resp B/P (MAP) Pulse Ox O2 Delivery O2 Flow Rate FiO2 12/27/21 11:04 20 99 Room Air 12/27/21 10:41 84 16 139/67 (91) 97 12/27/21 10:03 20 100 Room Air 12/27/21 09:36 98.2 98 18 164/75 (104) 100 Room Air 98.2 Vital Signs Date Time Temp Pulse Resp B/P (MAP) Pulse Ox O2 Delivery O2 Flow Rate FiO2 12/27/21 09:36 98.2 98 18 164/75 (104) 100 Room Air 98.2 EKG: EKG: EKG done at [address] Jacob at 933 sinus rhythm at a rate of 87 with a DC interval of 130 ms with a QTC of 455 ms no STEMI [] Radiology/Procedures: Radiology/Procedures: REASON: low back pain after lifting boxes at work PROCEDURE: CT LUMBAR SPINE WO CONTRAST CT lumbar spine without contrast. HISTORY: Low back pain after lifting boxes at work Axial CT images were obtained through the lumbar spine. Sagittal and coronal reconstructed images were reviewed. There is no aortic aneurysm. Kidneys were incompletely evaluated, a calculus is not identified, there is no renal hydronephrosis. Lumbar spine is in normal alignment. Disc spaces are normal in height. An acute lumbar fracture is not identified. T12-L1, L1-2, L2-3, and L3-4 discs are all unremarkable without focal disc protrusion or spinal stenosis or foraminal stenosis. L3-4 disc is also unremarkable. There is mild bulging of the disc at L4-5 without spinal stenosis or foraminal stenosis. There is spurring and disc bulging at L5-S1 without spinal stenosis. IMPRESSION: 1. No lumbar fracture noted. 2. Mild degenerative disc disease with spurring and disc bulging at L5-S1. 3. No spinal stenosis noted.[] Course & Med Decision Making: Course & Med Decision Making Pertinent Labs and Imaging studies reviewed. (See chart for details) 1050 reassessment of patient, patient states his muscle spasms have improved but he continues to have back pain, no radiculopathy reported by patient. Patient will be given another dose of pain medication we will attempt to ambulate patient afterwards to see if he can go home and care for himself. We will consult neurosurgery regarding the L5-S1 bulging disc. 11:00 I spoke with Aleida nurse practitioner for neurosurgical services, she recommends that patient follow-up with the [employer] agency since this is a work-related injury, and if they would wish the patient to be seen by neurosurgery they would be happy to see them. She did offer to see the patient in the office if he is requesting it and I will give the patient contact information for that. 1140 patient states his pain has improved since the second dose of pain medication, patient states this is a work-related injury so he will need to follow-up with his [employer] agency for further management of his back pain, I will order some Percocet and Flexeril for pain management, did inform him that ice to the affected areas 20 minutes on 3-4 times daily will help with localized pain relief. Patient was given strict return precautions if he should have any loss of bowel or bladder control or inability to void or defecate that he should return to the emergency department for further evaluation. Jeff Disclaimer: Jeff Disclaimer: This electronic medical record was generated, in whole or in part, using a voice recognition dictation system. Departure Departure Impression: Primary Impression: Back pain Qualified Codes: M54.50 - Low back pain, unspecified Additional Impression: Bulging of lumbar intervertebral disc Disposition: HOME / SELF CARE / HOMELESS Condition: STABLE Referrals: ARTEMIO COX MD (PCP) MILLI TYSON MD Patient Instructions: Back Pain, Adult Additional Instructions: Percocet 1 to 2 tablets every 6 hours as needed for pain, use with caution may cause drowsiness and constipation Flexeril take 1 tablet every 8 hours as needed for muscle spasms use with caution may cause drowsiness [id number] Tylenol as needed for pain do not use in conjunction with the Percocet Ice to the affected area 20 minutes on 4-5 times daily Follow-up with your primary care physician Dr. Cox or your [employer] agency or Dr. Joy for further management of your back pain. Return to the emergency department for any loss of bowel or bladder control, any inability to void or defecate, or any increased pain or any numbness or tingling in your legs. Scripts Oxycodone/Apap 5-325 (PERCOCET 5-325 MG TABLET ) 1 Each Tablet 1 TAB PO PRN Q6HRS PRN for PAIN, #30 TAB 0 Refills Prov: LAZARO AGUDELO APRN 12/27/21 Cyclobenzaprine Hcl (CYCLOBENZAPRINE HCL) 10 Mg Tablet 10 MG PO TID PRN PRN for MUSCLE SPASMS, #30 TAB Prov: LAZARO AGUDELO APRN 12/27/21 LAZARO AGUDELO APRN Dec 27, 2021 09:55
[2021-12-27 10:12] LABS: BASO # 0.1 x10^3/uL (0.0-0.2); BASO % 1 % (0-3); EOS # 0.1 x10^3/uL (0.0-0.7); EOS % 1 % (0-3); HEMATOCRIT 46.4 % (39.0-53.0); HEMOGLOBIN 15.1 g/dL (13.0-17.5); LYMPH # 3.4 x10^3/uL (1.0-4.8); LYMPH % 47 % (24-48); MEAN CORPUSCULAR HEMOGLOBIN 32 pg (25-35); MEAN CORPUSCULAR HGB CONC 33 g/dL (31-37); MEAN CORPUSCULAR VOLUME 97 fL (79-100); MONO # 0.4 x10^3/uL (0.0-1.1); MONO % 6 % (0-9); NEUT # 3.3 x10^3/uL (1.8-7.7); NEUT % 46 % (31-73); PLATELET COUNT 226 x10^3/uL (140-400); RED BLOOD COUNT 4.79 x10^6/uL (4.30-5.70); WHITE BLOOD COUNT 7.3 x10^3/uL (4.0-11.0)
[2021-12-27 10:21] LABS: CALCIUM 8.8 mg/dL (8.5-10.1); CREATININE 1.2 mg/dL (0.7-1.3); GFR 81.1; POTASSIUM 4.1 mmol/L (3.5-5.1)
[2021-12-27 10:27] LABS: TOTAL BILIRUBIN 0.5 mg/dL (0.2-1.0); TOTAL PROTEIN 7.9 g/dL (6.4-8.2)
--- NOTE | 2021-12-27 10:36 | RAD ---
CT lumbar spine without contrast. HISTORY: Low back pain after lifting boxes at work Axial CT images were obtained through the lumbar spine. Sagittal and coronal reconstructed images wer e reviewed. There is no aortic aneurysm. Kidneys were incompletely evaluated, a calculus is not ident ified, there is no renal hydronephrosis. Lumbar spine is in normal alignment. Disc spaces are normal in height. An acute lumbar fracture is not identified. T12-L1, L1-2, L2-3, and L3-4 discs are all unr emarkable without focal disc protrusion or spinal stenosis or foraminal stenosis. L3-4 disc is also u nremarkable. There is mild bulging of the disc at L4-5 without spinal stenosis or foraminal stenosis. There is spurring and disc bulging at L5-S1 without spinal stenosis. IMPRESSION: 1. No lumbar fracture noted. 2. Mild degenerative disc disease with spurring and disc bulging at L5-S1. 3. No spinal stenosis noted. PQRS Compliance Statement: One or more of the following individualized dose reduction techniques were utilized for this examinat ion: 1. Automated exposure control 2. Adjustment of the mA and/or kV according to patient size 3. Use of iterative reconstruction technique Electronically signed by: Hitesh Vance MD (12/27/2021 10:34 AM) [id number]
[2021-12-27 10:41] VITALS: BP 139/67
[2021-12-27] MEDS ORDERED: HYDROmorphone 2 MG/ML INJ. IVP ONE (11:00)
[2021-12-27] MEDS ORDERED: CYCL10TA19 PO (11:48)
[2021-12-27] MEDS ORDERED: OXYC1TAB15 PO (11:48)
--- NOTE | 2021-12-27 16:05 | EKG ---
[facility] [address] [place] [address] Test Date: 2021-12-27 Test Time: 09:30:57 Pat Name: EL THOMPSON Department: Room: Gender: Alumni Relations Coordinator: : 1980 Requested By: LAZARO AGUDELO Order Number: [id number] Reading MD: Derick Greer Measurements Intervals [place] Rate: 87 P: 23 AL: 130 QRS: 48 QRSD: 94 T: -42 QT: 378 QTc: 455 Interpretive Statements SINUS RHYTHM NON SPECIFIC ST-T WAVE CHANGES Electronically Signed On 12-28-2021 17:45:42 [employer]CH [employer] WORK[employer] by Derick Greer
== END 2021-12-27 12:08 | disposition home or self-care (01) ==
LOC: ER 09:24
DX: M54.50 Low back pain, unspecified (principal); M51.37 Other intervertebral disc degeneration, lumbosacral region
CPT/HCPCS: 36415; 72131; 80053; 82962; 84484; 85025; 93005; 96372; 96374; 96375; 99285; J1170; J2270; J2360